=== PATIENT | female | born 1945 | race Caucasian/White ===

== ENCOUNTER → 2018-09-12 07:48 | Outpatient (CLI) | payer MEDICARE, SELFPAY ==
[2018-09-12 08:31] LABS: Add Manual Diff / Slide Review NO; Basophils Absolute Auto 100 /uL (0-100); Basophils Percent Auto 1.1 % (0-2); Eosinophils Absolute Auto 300 /uL (0-450); Eosinophils Percent Auto 3.8 % (2-4); Hematocrit 45.3 % (36-46); Hemoglobin 15.1 g/dL (12.0-16.0); Lymphocytes Absolute Auto 2500 /uL (1100-4500); Lymphocytes Percent Auto 27.7 % (25-40); Mean Corpuscular HGB Conc 33.4 % (30-36); Mean Corpuscular Hemoglobin 29.9 PG (26-34); Mean Corpuscular Volume 89.5 fL (80-100); Monocytes Absolute Auto 700 /uL (0-900); Monocytes Percent Auto 7.7 % (3-14); Neutrophils Absolute Auto 5400 /uL (1500-7000); Neutrophils Percent Auto 59.7 % (50-75); Platelet Count 283 X10^3/uL (150-400); Red Blood Cell Count 5.06 X10^6/uL (4.0-5.2); Red Cell Distribution Width 13.7 % (11.6-14.8)
[2018-09-12 08:46] LABS: Alanine Aminotransferase 52 IU/L (9-52); Albumin 4.6 g/dL (3.5-5.0); Albumin Globulin Ratio 1.4 (1.0-2.8); Alkaline Phosphatase 76 U/L (38-126); Aspartate Aminotransferase 29 IU/L (14-36); BUN Creatinine Ratio 17.8 (6-22); Bilirubin Total 0.7 mg/dL (0.2-1.3); Blood Urea Nitrogen 16 mg/dL (7-17); Calcium 9.2 mg/dL (8.4-10.2); Carbon Dioxide 29 mmol/L (22-32); Chloride 102 mmol/L (98-107); Cholesterol 201 mg/dL (140-199); Estimated Glomerular Filt Rate > 60.0 mL/min (>60); Globulin 3.3 g/dL (1.7-4.1); Glucose 113 mg/dL (80-110); HDL Cholesterol 44 mg/dL (40-60); HEMOLYSIS < 15 (0-50); LDL Cholesterol Calculated 117 mg/dL (<100); Potassium 4.5 mmol/L (3.4-5.1); Sodium 142 mmol/L (137-145); Total Protein 7.9 g/dL (6.3-8.2); Triglycerides 198 mg/dL (35-150)
== END ==
PROVIDERS: PCP Family Medicine; Visit Provider Family Medicine
DX: E03.9 Hypothyroidism, unspecified (principal); E78.5 Hyperlipidemia, unspecified; I10 Essential (primary) hypertension
CPT/HCPCS: 36415; 80053; 80061; 84443; 85025

== ENCOUNTER → 2018-10-14 15:11 | Outpatient (CLI) | payer MEDICARE, SELFPAY ==
--- NOTE | 2018-10-14 15:13 | DI.RAD.S_ITS ---
PROCEDURE: XR LUMBAR SPINE 2-3V INDICATIONS: PAIN TECHNIQUE: 3 views of the lumbar spine were acquired. COMPARISON: [facility], , -SPINE 2-3 VIEWS, 12/28/2014, 11:12. FINDINGS: Bones: No fracture or focal osseous destruction. Grade 1 anterolisthesis of L4 and L5. Diffuse facet arthropathy. Diffuse endplate spurring and sclerosis. Mild narrowing of the L4-L5 disc space although probably unchanged Soft tissues: Overlying bowel gas pattern is normal. No suspicious soft tissue calcifications. IMPRESSION: Mild lower lumbar facet spondylosis and diffuse facet arthropathy although no definite interval change since 12/28/14. Dictated by: Ángel Pepper M.D. on 10/14/2018 at 15:43 Approved by: Ángel Pepper M.D. on 10/14/2018 at 15:45
== END ==
PROVIDERS: Family Provider Family Medicine; PCP Family Medicine; Visit Provider Family Medicine
DX: M54.5 Low back pain (principal); M47.816 Spondylosis without myelopathy or radiculopathy, lumbar region
CPT/HCPCS: 72100

== ENCOUNTER → 2018-10-18 11:01 | Outpatient (CLI) | payer MEDICARE, SELFPAY ==
--- NOTE | 2018-10-18 | DI.MG.S_ITS ---
BILATERAL DIGITAL SCREENING MAMMOGRAM 3D/2D WITH CAD: 10/18/2018 CLINICAL: Routine screening. Family history of breast cancer. Comparison is made to exams dated: 07/19/2017 mammogram, 07/04/2016 mammogram, and 06/22/2015 mammogram - [facility]. There are scattered fibroglandular elements in both breasts. Current study was also evaluated with a Computer Aided Detection (CAD) system. There are benign calcifications in the right breast. There also are benign vascular calcifications in the left breast. No significant masses, calcifications, or other findings are seen in either breast. There has been no significant interval change. IMPRESSION: There is no mammographic evidence of malignancy. A 1 year screening mammogram is recommended. This exam was interpreted at Station ID: [id number]. NOTE: For mammograms, a report in lay terms will be sent to the patient. Approximately 15% of breast malignancies will not be visualized mammographically. In the management of a palpable breast mass, a negative mammogram must not discourage biopsy of a clinically suspicious lesion. Electronically Signed By: Ryan live/josafat:10/18/2018 11:57:43 letter sent: Normal Exam ACR BI-RADS Category 2: Benign Finding(s) [id number]
== END ==
PROVIDERS: Family Provider Family Medicine; PCP Family Medicine; Visit Provider Family Medicine
DX: Z12.31 Encounter for screening mammogram for malignant neoplasm of breast (principal); Z80.3 Family history of malignant neoplasm of breast
CPT/HCPCS: 77063; 77067

== ENCOUNTER → 2018-11-08 15:13 | Outpatient (CLI) | payer MEDICARE, SELFPAY ==
--- NOTE | 2018-11-08 15:16 | DI.MRI.S_ITS ---
PROCEDURE: MR LUMBAR SPINE WO CON INDICATIONS: Lumbosacral spondylosis TECHNIQUE: Noncontrast sagittal T1 spin echo and T2 fast echo, sagittal STIR, axial T1 and T2 fast spin echo through the lumbar spine. In cases with scoliosis, additional coronal T2 fast spin echo may be performed. COMPARISON: [facility], CR, XR LUMBAR SPINE 2-3V, 10/14/2018, 15:15. [facility], MR, L-SPINE WITHOUT CONTRAST, 05/07/2015, 9:51. FINDINGS: Image quality: Excellent. Alignment and Curvature: There is trace anterolisthesis of L4 on L5. Bone Marrow: Marrow is of normal overall signal. No acute vertebral body compression fractures. Spinal Cord: Conus medullaris terminates at the L2 level. Visualized cord demonstrates normal signal and size. Paraspinous Soft Tissues: No paravertebral masses. Discs: Mild desiccation is present at the lumbar spine most notable at L3-4 and L4-5. L1-L2: No disc bulge, spinal stenosis or foraminal narrowing, unchanged. Moderate facet and ligamentum flavum hypertrophy, minimally progressive. L2-L3: No disc bulge, spinal stenosis or foraminal narrowing, unchanged. Moderate facet and ligamentum flavum hypertrophy, minimally progressive. L3-L4: Mild disc bulge with mild spinal stenosis, minimally progressive compared to prior exam. Mild bilateral foraminal narrowing with facet and ligamentum flavum hypertrophy without interval change. L4-L5: Mild disc bulge with moderate to severe spinal stenosis, minimally progressive compared to prior exam. There is mild to moderate right and mild left foraminal narrowing, minimally progressive compared to prior exam. Facet and ligamentum flavum hypertrophy are present. L5-S1: Mild disc bulge including a right lateral/foraminal component. No spinal stenosis or foraminal narrowing. Mild interval progression as noted. IMPRESSION: 1. Multilevel degenerative changes at several levels demonstrate mild degrees of interval progression. 2. Spinal stenosis most prominent at L4-5 secondary to disc bulge with marked affect the facet/ligamentum flavum arthropathy. 3. Overall mild/moderate foraminal narrowing most prominent at L4-5 secondary to facet arthropathy. Dictated by: Natalee Dhaliwal M.D. on 11/08/2018 at 14:53 Approved by: Natalee Dhaliwal M.D. on 11/08/2018 at 14:59
== END ==
PROVIDERS: Family Provider Family Medicine; PCP Family Medicine; Visit Provider Physical Medicine & Rehabilitation
DX: M47.26 Other spondylosis with radiculopathy, lumbar region (principal); M51.16 Intervertebral disc disorders with radiculopathy, lumbar region; M48.061 Spinal stenosis, lumbar region without neurogenic claudication
CPT/HCPCS: 72148

== ENCOUNTER 2018-12-18 09:25 | Outpatient (CLI) | payer MEDICARE, SELFPAY ==
[2018-12-18] VITALS (9 sets, daily range): BP systolic 123–163; BP diastolic 54–78; PULSE 62–85; RESP 16–18; TEMP 35.9; O2SAT 92–100
--- NOTE | 2018-12-18 09:28 | DI.RAD.S_ITS ---
PROCEDURE: PAIN L/SI FACET INJ/BLK 1STL INDICATIONS: SPONDYLOSIS FINDINGS: Fluoroscopic spot filming was performed to verify placement of spinal needles at the L4-5,L5-S1 level(s), as labeled on the films. Appropriate location(s) of the needle tip(s) was confirmed by injection of iodinated contrast. Dictated by: Ángel Pepper M.D. on 12/18/2018 at 11:50 Approved by: Ángel Pepper M.D. on 12/18/2018 at 11:51
[2018-12-18] MEDS: MIDAZOLAM 5 MG/5 ML VIAL IV (10:40)
[2018-12-18] MEDS: BETAMETHASONE 30 MG/5 ML MDV 12 MG INJ (10:47)
[2018-12-18] MEDS: BUPIVACAINE 0.5% (PF) VIAL 2 ML INJ (10:47)
[2018-12-18] MEDS: LIDOCAINE 1% 20 ML INJ 10 ML INJ (10:48)
[2018-12-18] MEDS: IOPAMIDOL 15 ML VIAL 3 ML INJ (10:48)
--- NOTE | 2018-12-18 10:55 | PM.PROC.1 ---
Procedures Date/Time Date of procedure: 12/18/18 Time of procedure: 10:56 General Procedure description: PREOP DIAGNOSIS 1. FACET ARTHROPATHY, 2. AXIAL LBP, 3. MULTILEVEL DDD, POST OP DIAGNOSIS 1. FACET ARTHROPATHY, 2. AXIAL LBP, 3. MULTILEVEL DDD, PROCEDURES 1. FLUORSCOPICALLY GUIDED CONTRAST CONTROLLED FACET JOINT INJECTIONS LEFT L4/5, L5/S1 SURGEON: Froylan Castillo, INDICATIONS Christie is referred by Dr. Mahoney for treatment of Axial LBP FINDINGS Multilevel Facet Arthropathy with Clinically significant axial LBP DESCRIPTION OF PROCEDURE Fluoroscopically guided, contrast-controlled left L4/5, L5/S1 facet joint injections. Following denial of allergy and review of potential side effects and complications, including, but not necessarily limited to, infection, allergic reaction, local tissue breakdown, stroke, temporary or permanent nerve injury, paralysis, and possible , the patient indicated that the patient understood and agreed to proceed. An informed consent document was signed by the patient, witnessed by a nurse, and placed in the patient's chart. Additionally, other treatment options including medications, modalities, and physical therapy were reviewed with the patient. After review of previous anaesthesic history and IV conscious sedation the patient was deemed safe to proceed with todays procedure with IV conscious sedation as ASA class II designation. Safety time-out was performed to confirm patient ID, procedure to be performed and site of procedure. IV sedation was accomplished with a combination of 3mg of Versed was administered by the RN after DO order, titrated to patient comfort during the course of the procedure while the patient remained responsive to all verbal commands. In the prone position, following sterile prep and drape of the lumbar region, the posterior aspect of the left L4/5, L5/S1 facet joints were identified fluoroscopically. The skin was anesthetized via a 25-gauge 1.5-inch needle with 1% lidocaine solution into the corresponding facet joints. At this point, a 22-gauge 3.5-inch spinal needle was atraumatically introduced and advanced under fluoroscopic guidance into the corresponding facet joints. Following negative aspiration, injections of approximately 0.2-cc of Isovue 200 confirmed interarticular placement without vascular uptake. Radiological data, including multiple fluoroscopic views of the lumbosacral spine, reveal a spinal needle at the left L4/5, L5/S1 facet joints. Subsequent views show flow of contrast material both superiorly and inferiorly within the joint space without vascular or intrathecal uptake. At this point, a total of 0.5 cc including a mixture of 0.25cc Marcaine and 0.25cc betamethasone was injected without complication into each of the corresponding facet joints. The procedure tolerated the procedure well without signs or symptoms of complications prior to transfer to the recovery area continued monitoring without incident. The patient was then transferred to the recovery area where they were observed for an appropriate period of time after the injection. The patient reported a VAS score of 7 prior to the procedure and a post-procedure VAS of 0. Total Fluoroscopy Time: 12.7 seconds Total Conscious Sedation Time: 24min POST OP INSTRUCTIONS The patient was provided a Pain Log to continue to record their response to the target-specific procedure prior to follow-up visit with their referring physician. Additionally, specific post-injection care instructions and a contact number to our office were provided if concerns arise regarding possible complications associated with the procedure are suspected. Froylan Castillo, Complications: none
--- NOTE | 2018-12-18 10:58 | P.PCN_ITS ---
Procedures Date/Time Date of procedure: 12/18/18 Time of procedure: 10:56 General Procedure description: PREOP DIAGNOSIS 1. FACET ARTHROPATHY, 2. AXIAL LBP, 3. MULTILEVEL DDD, POST OP DIAGNOSIS 1. FACET ARTHROPATHY, 2. AXIAL LBP, 3. MULTILEVEL DDD, PROCEDURES 1. FLUORSCOPICALLY GUIDED CONTRAST CONTROLLED FACET JOINT INJECTIONS LEFT L4/5, L5/S1 SURGEON: Froylan Castillo, DO MIRAMONTES Christie is referred by Dr. Mahoney for treatment of Axial LBP FINDINGS Multilevel Facet Arthropathy with Clinically significant axial LBP DESCRIPTION OF PROCEDURE Fluoroscopically guided, contrast-controlled left L4/5, L5/S1 facet joint inj ections. Following denial of allergy and review of potential side effects and complications, including, but not necessarily limited to, infection, allergic reaction, local tissue breakdown, stroke, temporary or permanent nerve injury, paralysis, and possible , the patient indicated that the patient understood and agreed to proceed. An informed consent document was signed by the patient, witnessed by a nurse, and placed in the patient's chart. Additionally, other treatment options including medications, modalities, and physical therapy were reviewed with the patient. After review of previous anaesthesic history and IV conscious sedation the patient was deemed safe to proceed with todays procedure with IV conscious sedation as ASA class II designation. Safety time-out was performed to confirm patient ID, procedure to be performed and site of procedure. IV sedation was accomplished with a combination of 3mg of Versed was administered by the RN after DO order, titrated to patient comfort during the course of the procedure while the patient remained responsive to all verbal commands. In the prone position, following sterile prep and drape of the lumbar region, the posterior aspect of the left L4/5, L5/S1 facet joints were identified fluoroscopically. The skin was anesthetized via a 25-gauge 1.5-inch needle with 1% lidocaine solution into the corresponding facet joints. At this point, a 22- gauge 3.5-inch spinal needle was atraumatically introduced and advanced under fluoroscopic guidance into the corresponding facet joints. Following negative aspiration, injections of approximately 0.2-cc of Isovue 200 confirmed interarticular placement without vascular uptake. Radiological data, including multiple fluoroscopic views of the lumbosacral spine, reveal a spinal needle at the left L4/5, L5/S1 facet joints. Subsequent views show flow of contrast material both superiorly and inferiorly within the joint space without vascular or intrathecal uptake. At this point, a total of 0.5 cc including a mixture of 0.25cc Marcaine and 0.25cc betamethasone was injected without complication into each of the corresponding facet joints. The procedure tolerated the procedure well without signs or symptoms of complications prior to transfer to the recovery area continued monitoring without incident. The patient was then transferred to the recovery area where they were observed for an appropriate period of time after the injection. The patient reported a VAS score of 7 prior to the procedure and a post-procedure VAS of 0. Total Fluoroscopy Time: 12.7 seconds Total Conscious Sedation Time: 24min POST OP INSTRUCTIONS The patient was provided a Pain Log to continue to record their response to the target-specific procedure prior to follow-up visit with their referring physician. Additionally, specific post-injection care instructions and a contact number to our office were provided if concerns arise regarding possible complications associated with the procedure are suspected. Froylan Castillo, Complications: none
--- NOTE | 2018-12-18 11:10 | PC.NURSE ---
pt tolerated procedure well. Able to get off table with standby assist. Transferred pt to pre procedure room via wheelchair for continued monitoring with Carissa CHAU.
--- NOTE | 2018-12-18 11:25 | PC.NURSE ---
increase in alertness, talkative and cooperative, tolerating drinking coffee and water. spouse at bs.
--- NOTE | 2018-12-18 11:47 | PC.NURSE ---
1056 rtr from procedure via w/c, pain free, transfer self to chair, tolerating drinking coffee with sugar. states, feeling sleepy.
== END 2018-12-18 11:29 | disposition home or self-care (01) ==
PROVIDERS: PCP Family Medicine; Visit Provider Physical Medicine & Rehabilitation
DX: M47.816 Spondylosis without myelopathy or radiculopathy, lumbar region (principal); M47.817 Spondylosis without myelopathy or radiculopathy, lumbosacral region; M54.5 Low back pain; M51.36 Other intervertebral disc degeneration, lumbar region; M51.37 Other intervertebral disc degeneration, lumbosacral region
CPT/HCPCS: 64493; 64494; 99152; J0702; J2250; J3010

== ENCOUNTER 2019-09-15 09:38 | Emergency (ER) | payer MEDICARE, SELFPAY ==
[2019-09-15] VITALS (7 sets, daily range): BP systolic 135–181; BP diastolic 65–79; PULSE 67–77; RESP 12–19; TEMP 37; O2SAT 95–100
--- NOTE | 2019-09-15 09:42 | DI.RAD.S_ITS ---
PROCEDURE: XR CHEST 1V INDICATIONS: chest pain TECHNIQUE: One view of the chest was acquired. COMPARISON: [facility], , CHEST 2 VIEW, 04/04/2017, 9:50. FINDINGS: Surgical changes and devices: None. Lungs and pleura: Lungs are clear. No pleural effusions or pneumothorax. Mediastinum: Mediastinal contours appear normal. Heart size is normal. Bones and chest wall: No suspicious bony lesions. Overlying soft tissues appear unremarkable. IMPRESSION: No acute disease Dictated by: Ángel Pepper M.D. on 09/15/2019 at 10:51 Approved by: Ángel Pepper M.D. on 09/15/2019 at 10:53
--- NOTE | 2019-09-15 10:48 | ED_ITS ---
HPI - Chest Pain General Chief Complaint: Chest Pain Stated Complaint: chest pain Time Seen by Provider: 09/15/19 10:41 Source: patient Mode of arrival: Ambulatory Limitations: no limitations History of Present Illness HPI narrative: The patient is a 73-year-old female who presented to the emergency department for evaluation of chest pain she had on Sunday, 3 days prior to admission. She had no pain and discomfort on Sunday or Sunday. The patient states that periodically she has intermittent brief periods of chest pain that are dull and achy. The discomfort occurs in the center of her chest and is a tight squeezing dull achy discomfort as she makes the Boggs's sign. She denies ever having a myocardial infarction or pulmonary embolism. She denies any fall or injury. She has had no fever chills or sweats as well as any significant cough. She become short of breath when she climbs in walks up a fl ight of stairs. She denies any headache palpitations or dizziness. She denies any discomfort radiating into her neck jaw or shoulder or arm. The pain was the worse on Sunday. She stated that it lasted approximately 20 minutes. There was no significant radiation but was very uncomfortable. She does not smoke cigarettes or drink alcohol. She denies a history of myocardial infarction congestive heart failure diabetes mellitus pancreatitis or cholecystectomy. She has had no cough shortness of breath sore throat sinus or nasal congestion. She has had no abdominal pain nausea vomiting diarrhea change in bowel habits or urinary symptoms. Related Data Home Medications Medication Instructions Recorded Confirmed ascorbic acid (vitamin C) 500 mg 500 mg PO DAILY cap 04/03/19 09/15/19 capsule cell salts 5 each PO DAILY 04/03/19 09/15/19 cholecalciferol (vitamin D3) 25 1,000 unit PO DAILY 04/03/19 09/15/19 mcg (1,000 unit) capsule mecobalamin (vitamin B12) 1 tab PO DAILY 04/03/19 09/15/19 multivitamin 1 tab PO DAILY 04/03/19 09/15/19 atenolol 25 mg PO DAILY 09/15/19 09/15/19 estradiol [Climara] 0.1 mg TOPICAL QWEEK 09/15/19 09/15/19 omeprazole 20 mg PO DAILY 09/15/19 09/15/19 Previous Rx's Medication Instructions Recorded colesevelam 625 mg tablet 1,250 mg PO ONCE #90 tab 09/19/18 diclofenac sodium 1 % topical gel 2 g TOP QID #100 gram MDD 8 gm 04/03/19 meloxicam 7.5 mg tablet 7.5 mg PO DAILY #30 tab 04/07/19 levothyroxine 88 mcg tablet 88 mcg PO QAM #90 tab 09/08/19 ibuprofen 600 mg PO QID PRN #20 tab 09/15/19 Allergies Allergy/AdvReac Type Severity Reaction Status Date / Time Penicillins Allergy Mild RASH Verified 04/03/19 15:09 Review of Systems Review of Systems Narrative: Her review of systems were negative except for those mentioned in the history of present illness. Patient History Surgical History History of bladder suspension procedure Status post appendectomy Status post delivery Status post hysterectomy Family History Brother Age: 75 Diabetes mellitus Sister Age: 69 Blind Social History marital status: Smoking Status: Never smoker alcohol intake: current (ON OCCASION ) substance use type: does not use Smoking Status: Never smoker Substance Use Type: does not use Exam Narrative Exam Narrative: PHYSICAL EXAM: CONSTITUTIONAL: Awake, Alert, Oriented, Coherent, Cooperative in NAD. Does not appear toxic or ill. HEAD: AT/NC EENT: PERRL, FROM of eyes, no discharge, no nystagmus No epistaxis or nasal drainage Oral mucosa is moist and pink, posterior pharynx is without erythema or exudate. NECK: Supple, no obvious JVD, Trachea is midline without stridor, SPINE: No gross deformity, no palpable tenderness of the cervical, thoracic, lumbar or sacral spine. No CVA tenderness. THORAX: No deformity, retractions, chest wall tenderness, subcutaneous air or crepitice. LUNGS: Clear with symmetrical breath sounds without respiratory distress HEART: Normal heart tones, regular rhythm and rate without murmur. ABDOMEN: Soft, non-tender, normal bowel sounds without guarding, rebound, rigidity or palpable mass EXTREMITIES: No edema, cyanosis, deformity or tenderness. SKIN: No rash, bruising, petechiae or purpura. NEURO: Awake, alert, oriented, conversive, cranial nerves II-XII are symmetrical and normal, moves all 4 extremities and is ambulatory Initial Vital Signs Initial Vital Signs: Vital Signs Temperature 98.6 F 09/15/19 09:41 Pulse Rate 68 09/15/19 09:41 Respiratory Rate 16 09/15/19 09:41 Blood Pressure 169/73 H 09/15/19 09:41 Pulse Oximetry 98 09/15/19 09:41 Course Course Additional Information: 1051 the patient's troponin and x-ray results remain pending at this time. 1340 the patient's 2nd troponin remains pending. Her 2nd EKG reveals a normal sinus rhythm with a ventricular rate of 64. Intervals are normal. [place] is normal. She has low voltage in III. She has a Q-wave in lead V1. T-waves are flat in III and AVF and inverted in V1. There are no other acute diagnostic ST or T-wave changes on her EKG her EKG is otherwise normal. 1351 the patient's 2nd troponin is less than 0.012. The patient will be disc harged home to be seen in follow-up by her primary care physician. Orders Ordered: ED Orders 09/15/19 13:10 EKG-12 Lead Stat 09/15/19 13:12 Trop I [Troponin I] Stat Vital Signs Vital signs: Vital Signs - 8 hr 09/15/19 13:00 09/15/19 13:59 Pulse Rate 68 77 Respiratory Rate 13 19 Blood Pressure 135/65 Blood Pressure [Left Arm] 135/65 Pulse Oximetry 96 97 MDM - Chest Pain Lab Data Result diagrams: 09/15/19 11:10 09/15/19 11:10 Labs: Lab Results 09/15/19 09/15/19 09/15/19 Range/Units 11:10 11:10 11:10 WBC 7.0 (4.5-11.0) X10^3/uL RBC 4.78 (4.0-5.2) X10^6/uL Hgb 14.3 (12.0-16.0) g/dL Hct 42.6 (36-46) % MCV 89.1 (80-100) fL MCH 30.0 (26-34) PG MCHC 33.6 (30-36) % RDW 14.2 (11.6-14.8) % Plt Count 211 (150-400) X10^3/uL Neut % (Auto) 67.8 (50-75) % Lymph % (Auto) 20.5 L (25-40) % [place] % (Auto) 7.4 (3-14) % Eos % (Auto) 3.4 (2-4) % Baso % (Auto) 0.9 (0-2) % Neut # (Auto) 4700 (1657-1958) /uL Lymph # (Auto) 1400 (3461-0923) /uL [place] # (Auto) 500 (0-900) /uL Eos # (Auto) 200 (0-450) /uL Baso # (Auto) 100 (0-100) /uL PT 11.1 (10.1-12.7) SECONDS INR 1.0 (0.9-1.3) APTT 32 (26.4-36.2) SECONDS Sodium 139 (137-145) mmol/L Potassium 4.1 (3.4-5.1) mmol/L Chloride 104 (98-107) mmol/L Carbon Dioxide 28 (22-32) mmol/L BUN 16 (7-17) mg/dL Creatinine 0.80 (0.52-1.04) mg/dL Estimated GFR > 60.0 (>60) mL/min BUN/Creatinine Ratio 20.0 (6-22) Glucose 139 H (80-110) mg/dL Calcium 9.8 (8.4-10.2) mg/dL Total Bilirubin 0.6 (0.2-1.3) mg/dL AST 31 (14-36) IU/L ALT 37 H (<35) IU/L Alkaline Phosphatase 79 (38-126) U/L Total Creatine Kinase 38 (30-135) U/L CK-MB (CK-2) TNP CK-MB (CK-2) Rel Index TNP Troponin I < 0.012 (0.01-0.034) ng/mL Total Protein 7.6 (6.3-8.2) g/dL Albumin 4.4 (3.5-5.0) g/dL Globulin 3.2 (1.7-4.1) g/dL Albumin/Globulin Ratio 1.4 (1.0-2.8) Lipase 73 (23-300) U/L 09/15/19 Range/Units 13:12 WBC (4.5-11.0) X10^3/uL RBC (4.0-5.2) X10^6/uL Hgb (12.0-16.0) g/dL Hct (36-46) % MCV (80-100) fL MCH (26-34) PG MCHC (30-36) % RDW (11.6-14.8) % Plt Count (150-400) X10^3/uL Neut % (Auto) (50-75) % Lymph % (Auto) (25-40) % [place] % (Auto) (3-14) % Eos % (Auto) (2-4) % Baso % (Auto) (0-2) % Neut # (Auto) (7422-1644) /uL Lymph # (Auto) (7573-7049) /uL [place] # (Auto) (0-900) /uL Eos # (Auto) (0-450) /uL Baso # (Auto) (0-100) /uL PT (10.1-12.7) SECONDS INR (0.9-1.3) APTT (26.4-36.2) SECONDS Sodium (137-145) mmol/L Potassium (3.4-5.1) mmol/L Chloride (98-107) mmol/L Carbon Dioxide (22-32) mmol/L BUN (7-17) mg/dL Creatinine (0.52-1.04) mg/dL Estimated GFR (>60) mL/min BUN/Creatinine Ratio (6-22) Glucose (80-110) mg/dL Calcium (8.4-10.2) mg/dL Total Bilirubin (0.2-1.3) mg/dL AST (14-36) IU/L ALT (<35) IU/L Alkaline Phosphatase (38-126) U/L Total Creatine Kinase (30-135) U/L CK-MB (CK-2) CK-MB (CK-2) Rel Index Troponin I < 0.012 (0.01-0.034) ng/mL Total Protein (6.3-8.2) g/dL Albumin (3.5-5.0) g/dL Globulin (1.7-4.1) g/dL Albumin/Globulin Ratio (1.0-2.8) Lipase (23-300) U/L Urine Dip Bedside Urine Glucose Negative Bedside Urine Bilirubin - Negative Bedside Urine Ketone - Negative Bedside Urine Occult Blood - Negative Bedside Urine Protein - Negative Bedside Urine Urobilinogen - Negative Bedside Urine Nitrite - Negative Bedside Urine Leukocytes - Negative Esterase ECG Data Attestation: I personally reviewed and interpreted this ECG as follows: Interpretation: The patient's EKG revealed a normal sinus rhythm with a ventricular rate of 84. Intervals appear to be normal QTC is not prolonged at 424 milliseconds. The patient has right axis deviation. The patient appears to have low voltage criteria. T-waves are inverted in V1 aVL I. The patient has a Q-wave in lead I V1. There are nonspecific ST segment changes with slight ST depressions in leads V4 V5 V6 . There are no diagnostic ST segment changes. Discharge Plan Departure Patient Disposition: Home Clinical Impression: Atypical chest pain Discharge Date/Time: 09/15/19 14:01 Instructions: DI for Angina, DI for Atypical Chest Pain, DI for Chest Pain Activity Restrictions/Additional Instructions: Your repeat EKGs are normal and did not show any evidence of ischemia or injury to your heart. Here troponin is also normal. You need to follow-up with your primary care physician to be referred to a rivet flunky for a possible stress test. I would take at least 1 baby aspirin per day. For the pain and discomfort take ibuprofen 600 mg as needed every 6 hours. If you have recurring chest pain that radiates into your neck jaw back shoulders are arm and last longer than 15 minutes at the time that you are having chest pain you need to proceed to the nearest emergency department to be evaluated. Prescriptions: New ibuprofen 600 mg tablet 600 mg PO QID PRN (Reason: pain) Qty: 20 RF: 0 No Action meloxicam 7.5 mg tablet 7.5 mg PO DAILY Qty: 30 RF: 3 levothyroxine 88 mcg tablet 88 mcg PO QAM Qty: 90 RF: 0 colesevelam [WelChol] 625 mg tablet 1,250 mg PO ONCE Qty: 90 RF: 3 estradiol [Climara] 0.1 mg/24 hr patch weekly 0.1 mg topical QWEEK RF: 0 atenolol 25 mg tablet 25 mg PO DAILY RF: 0 omeprazole 20 mg capsule,delayed release(DR/EC) 20 mg PO DAILY RF: 0 ascorbic acid (vitamin C) 500 mg capsule 500 mg PO DAILY RF: 0 cholecalciferol (vitamin D3) 1,000 unit capsule 1,000 unit PO DAILY RF: 0 mecobalamin (vitamin B12) 1 tab PO DAILY RF: 0 multivitamin tablet 1 tab PO DAILY RF: 0 cell salts 5 each PO DAILY RF: 0 diclofenac sodium 1 % gel 2 g TOP QID MDD 8 gm Qty: 100 RF: 2 Referrals: Clark Mahoney MD [Primary Care Provider] -
--- NOTE | 2019-09-15 11:07 | PC.NURSE ---
patient refused iv access, having lab draw done currently.
[2019-09-15 11:17] LABS: Add Manual Diff / Slide Review NO; Basophils Absolute Auto 100 /uL (0-100); Basophils Percent Auto 0.9 % (0-2); Eosinophils Absolute Auto 200 /uL (0-450); Eosinophils Percent Auto 3.4 % (2-4); Hematocrit 42.6 % (36-46); Hemoglobin 14.3 g/dL (12.0-16.0); Lymphocytes Absolute Auto 1400 /uL (1100-4500); Lymphocytes Percent Auto 20.5 % (25-40); Mean Corpuscular HGB Conc 33.6 % (30-36); Mean Corpuscular Volume 89.1 fL (80-100); Monocytes Absolute Auto 500 /uL (0-900); Monocytes Percent Auto 7.4 % (3-14); Neutrophils Absolute Auto 4700 /uL (1500-7000); Neutrophils Percent Auto 67.8 % (50-75); Platelet Count 211 X10^3/uL (150-400); Red Blood Cell Count 4.78 X10^6/uL (4.0-5.2); Red Cell Distribution Width 14.2 % (11.6-14.8)
[2019-09-15 11:23] LABS: Prothrombin Time 11.1 SECONDS (10.1-12.7)
[2019-09-15 11:26] LABS: PTT Partial Thromboplastin Tim 32 SECONDS (26.4-36.2)
[2019-09-15 11:27] LABS: Alanine Aminotransferase 37 IU/L (<35); Albumin 4.4 g/dL (3.5-5.0); Albumin Globulin Ratio 1.4 (1.0-2.8); Alkaline Phosphatase 79 U/L (38-126); Aspartate Aminotransferase 31 IU/L (14-36); Bilirubin Total 0.6 mg/dL (0.2-1.3); Blood Urea Nitrogen 16 mg/dL (7-17); Calcium 9.8 mg/dL (8.4-10.2); Carbon Dioxide 28 mmol/L (22-32); Chloride 104 mmol/L (98-107); Creatine Kinase 38 U/L (30-135); Estimated Glomerular Filt Rate > 60.0 mL/min (>60); Globulin 3.2 g/dL (1.7-4.1); Glucose 139 mg/dL (80-110); HEMOLYSIS < 15 (0-50); Lipase 73 U/L (23-300); Potassium 4.1 mmol/L (3.4-5.1); Sodium 139 mmol/L (137-145); Total Protein 7.6 g/dL (6.3-8.2)
[2019-09-15 11:39] LABS: Troponin I < 0.012 ng/mL (0.01-0.034)
[2019-09-15 13:47] LABS: Troponin I < 0.012 ng/mL (0.01-0.034)
== END 2019-09-15 14:01 | disposition home or self-care (01) ==
PROVIDERS: Emergency Provider Emergency Medicine; PCP Family Medicine
DX: R07.89 Other chest pain (principal)
CPT/HCPCS: 36415; 71045; 80053; 81003; 82550; 83690; 84484; 85025; 85610; 85730; 93005; 99284; 99285

== ENCOUNTER → 2019-09-29 13:44 | Outpatient (CLI) | payer MEDICARE, SELFPAY ==
--- NOTE | 2019-09-29 14:56 | PM.TREADMILL ---
Cardiac Stress Test Report Referral & Results Date Patient Seen: 09/29/19 Requesting provider: Clark Mahoney Indication: Chest discomfort Rest ECG: Tachycardia Procedure Note: Today following both written and verbal informed consent the patient was exercised according to a standard Williams protocol patient went for a total of 3 minutes 26 seconds of stage I Williams achieving a maximum heart rate of 154 maximum systolic blood pressure of 192. This is approximately 4.6 METS. Exercise was terminated at this point because of tachycardia and targets were met. Patient was tachycardic at resting quickly achieved quite the tachycardia with rapid increase in blood pressure as well. Function aerobic impairment rates about 0 on the sedentary scale No ST-T segment changes identified Patient was also given Cardiolite through a previously started Hep-Lock IV by the diagnostic imaging staff approximately 1 minute prior to the cessation of exercise. Impression: Average exercise capacity No ECG evidence of ischemia Please see perfusion imaging report as well Please note: Actual ECG tracings can be found in the PACS system.
--- NOTE | 2019-10-02 18:20 | DI.NM.S_ITS ---
DATE OF SERVICE: 09/29/2019 PROCEDURE PERFORMED: Exercise treadmill stress and rest myocardial perfusion imaging with gating to assess ejection fraction and regional wall motion. ORDERING PROVIDER: Dr. Clark Mahoney. INDICATIONS: The patient is a 73-year-old female with recent emergency department evaluation for atypical chest discomfort. EXERCISE TREADMILL TESTING: The patient was able to exercise for 3 minutes 26 seconds on a standard Williams protocol, suggesting moderate-severely reduced exercise capacity with an CARLI of +36%. Her resting heart rate was elevated at 127 bpm, but had a normal heart rate response to exercise, achieving a maximum heart rate of 152 bpm (105% of her predicted maximum). She had a normal blood pressure response to exercise. She apparently had no chest discomfort. Her resting ECG shows sinus tachycardia at 119 bpm without any significant ST-segment abnormalities and there are no significant ST-segment shifts with exercise to suggest ischemia. There were no other arrhythmias. At 2 minutes 17 seconds of exercise, at a heart rate of 154 bpm, 25.7 mCi of technetium-99m Myoview was injected and the patient was imaged 20 minutes later using a gated SPECT acquisition protocol. She returned three days later and was reinjected with an additional 25.0 mCi of technetium-99m Myoview and was imaged 30 minutes later, again using a gated SPECT acquisition protocol. FINDINGS: RAW DATA: The post-stress images are compromised by considerable motion artifact and mild breast attenuation. The prone images appear to be of better image quality. The lung/heart ratio was normal at 0.38 with a normal TID ratio of 0.73. QUANTITATED GATED SPECT: Post-stress ejection fraction is estimated at 87% without any obvious focal wall motion abnormality. Resting ejection fraction is estimated at 95% and both values likely an overestimate because of relatively small left ventricular volumes with a resting end-diastolic volume of 41 mL. MYOCARDIAL PERFUSION IMAGING: Post-stress supine images are compromised by significant motion artifact. On face value, there is mildly reduced tracer activity in the mid anterior wall and mid inferior wall, but both of these defects resolve on the prone images, revealing a homogeneous, normal perfusion pattern. The resting images are of somewhat better quality and show a slight residual anterior defect. While there is some suggestion of improvement, this is nonspecific because of the poor image quality on the supine stress images. CONCLUSION: 1. Probable normal myocardial perfusion study but with significantly reduced sensitivity and specificity because of marked motion artifact on the post- stress supine images. 2. On the basis of the prone images which were of good quality, there are no perfusion defects to suggest myocardial ischemia or previous myocardial infarction. 3. High normal left ventricular systolic function with relatively small left ventricular volumes. 4. Moderate-severely reduced exercise capacity, perhaps in part due to an accelerated heart rate with a resting sinus tachycardia and an accelerated heart rate response to exercise, perhaps due to beta shailesh withdrawal. There was no angina or ECG evidence of ischemia. Radha Buchanan - JAMES/berry/laura doc#: [id number]/job#: [id number] dd: 10/02/2019 12:52:00 dt: 10/02/2019 17:58:00 DICTATING MD/COPIES TO: Froylan Quiles MD; Clark Mahoney MD COPIES MNE: RADHA;
== END ==
PROVIDERS: PCP Family Medicine; Referring Provider Family Medicine; Visit Provider Family Medicine
DX: R07.89 Other chest pain (principal); R00.0 Tachycardia, unspecified
CPT/HCPCS: 78452; 93016; 93017; 93018; A9502

== ENCOUNTER → 2019-10-01 07:09 | Outpatient (CLI) | payer MEDICARE, SELFPAY | PROVIDERS: PCP Family Medicine; Referring Provider Family Medicine; Visit Provider Family Medicine | DX: R19.7 Diarrhea, unspecified (principal) | CPT/HCPCS: 87045; 87177; 87899 ==

== ENCOUNTER → 2020-02-09 09:40 | Outpatient (CLI) | payer MEDICARE, SELFPAY ==
--- NOTE | 2020-02-09 | DI.MG.S_ITS ---
BILATERAL DIGITAL SCREENING MAMMOGRAM 3D/2D WITH CAD: 02/09/2020 CLINICAL: Routine screening. Family history of breast cancer. Comparison is made to exams dated: 10/18/2018 mammogram, 07/19/2017 mammogram, 07/04/2016 mammogram, 06/22/2015 mammogram, 05/22/2014 mammogram, and 03/14/2013 mammogram - [facility]. There are scattered fibroglandular elements in both breasts. Current study was also evaluated with a Computer Aided Detection (CAD) system. There are benign calcifications in both breasts. No significant masses, calcifications, or other findings are seen in either breast. There has been no significant interval change. IMPRESSION: There is no mammographic evidence of malignancy. A 1 year screening mammogram is recommended. This exam was interpreted at Station ID: [id number]. NOTE: For mammograms, a report in lay terms will be sent to the patient. Approximately 15% of breast malignancies will not be visualized mammographically. In the management of a palpable breast mass, a negative mammogram must not discourage biopsy of a clinically suspicious lesion. Electronically Signed By: Edgar wagner/josafat:02/09/2020 09:57:13 letter sent: Normal Exam ACR BI-RADS Category 2: Benign Finding(s) 3342F
== END ==
PROVIDERS: PCP Family Medicine; Referring Provider Family Medicine; Visit Provider Family Medicine
DX: Z12.31 Encounter for screening mammogram for malignant neoplasm of breast (principal); Z80.3 Family history of malignant neoplasm of breast
CPT/HCPCS: 77063; 77067

== ENCOUNTER → 2020-10-11 08:55 | Outpatient (CLI) | payer MEDICARE, SELFPAY ==
[2020-10-11 11:24] LABS: TSH w/ Reflex to FT4 2.05 uIU/mL (0.47-4.68)
== END ==
PROVIDERS: PCP Family Medicine; Referring Provider Family Medicine; Visit Provider Family Medicine
DX: E03.9 Hypothyroidism, unspecified (principal)
CPT/HCPCS: 36415; 84443

== ENCOUNTER → 2021-04-30 11:06 | Outpatient (CLI) | payer MEDICARE, SELFPAY ==
--- NOTE | 2021-04-30 11:07 | DI.MG.S_ITS ---
BILATERAL DIGITAL SCREENING MAMMOGRAM 3D/2D WITH CAD: 04/30/2021 CLINICAL: Routine screening. Family history of breast cancer. Comparison is made to exams dated: 02/09/2020 mammogram, 10/18/2018 mammogram, and 07/19/2017 mammogram - [facility]. There are scattered fibroglandular elements in both breasts. Current study was also evaluated with a Computer Aided Detection (CAD) system. There are benign calcifications in both breasts. No significant masses, calcifications, or other findings are seen in either breast. There has been no significant interval change. IMPRESSION: BENIGN There is no mammographic evidence of malignancy. A 1 year screening mammogram is recommended. This exam was interpreted at Station ID: [id number]. NOTE: For mammograms, a report in lay terms will be sent to the patient. Approximately 15% of breast malignancies will not be visualized mammographically. In the management of a palpable breast mass, a negative mammogram must not discourage biopsy of a clinically suspicious lesion. Electronically Signed By: Solis Gar acr/josafat:05/02/2021 07:53:19 letter sent: Normal Exam ACR BI-RADS Category 2: Benign Finding(s) 3342F
== END ==
PROVIDERS: PCP Family Medicine; Referring Provider Family Medicine; Visit Provider Family Medicine
DX: Z12.31 Encounter for screening mammogram for malignant neoplasm of breast (principal); Z80.3 Family history of malignant neoplasm of breast
CPT/HCPCS: 77063; 77067

== ENCOUNTER → 2021-09-12 12:51 | Outpatient (CLI) | payer MEDICARE, SELFPAY ==
[2021-09-12 16:01] LABS: COVID19 -Nasal RAPID Negative (Negative)
== END ==
PROVIDERS: PCP Family Medicine; Visit Provider Physical Medicine & Rehabilitation
DX: M47.816 Spondylosis without myelopathy or radiculopathy, lumbar region (principal); M43.16 Spondylolisthesis, lumbar region; Z20.822 Contact with and (suspected) exposure to COVID-19
CPT/HCPCS: 87635; 99214

== ENCOUNTER 2021-09-13 15:20 | Outpatient (CLI) | payer MEDICARE, SELFPAY ==
[2021-09-13] VITALS (8 sets, daily range): BP systolic 138–212; BP diastolic 63–91; PULSE 72–83; RESP 14–20; TEMP 36.6; O2SAT 95–100
--- NOTE | 2021-09-13 15:21 | DI.RAD.S_ITS ---
PROCEDURE: PAIN L/SI FACET INJ/BLK 1STL INDICATIONS: SPONDYLOSIS COMPARISON: [facility], , PAIN L/SI FACET INJ/BLK 1STL, 12/18/2018, 10:49. FINDINGS: Fluoroscopic spot filming was performed to verify placement of spinal needles at the left L4, L5, and S1 as labeled on the films. Appropriate locations of the needle tips was confirmed by injection of iodinated contrast. IMPRESSION: Fluoroscopic images demonstrate needle positioning as described above. Dictated by: Cyrus Andrew M.D. on 09/13/2021 at 16:57 Approved by: Cyrus Andrew M.D. on 09/13/2021 at 16:58
[2021-09-13] MEDS: BUPIVACAINE 0.5% (PF) VIAL 2 ML INJ (16:10)
[2021-09-13] MEDS: MIDAZOLAM 5 MG/5 ML VIAL IV (16:10)
[2021-09-13] MEDS: IOPAMIDOL 15 ML VIAL 3 ML INJ (16:15)
--- NOTE | 2021-09-13 16:28 | PM.PROC.IR.1 ---
Date/Time/Diagnoses Date of procedure: 09/13/21 Time of procedure: 16:28 Pre-procedure diagnosis: 1. FACET ARTHROPATHY This procedure is found to meet the Governor's proclamation 20-24.2 regarding non urgent procedures. This patient meets multiple criteria for the procedure including continuing or worsening of significant or severe pain, combined with further deterioration of the patient's condition or overall health as well as delay in treatment would be expected to result in less positive ultimate medical outcome. Therefore the decision to perform the procedure in an outpatient hospital setting is found to be in accordance with guidelines of the proclamation. Post-procedure diagnosis: same Procedure Notes Procedure: 1. Left L4, L5 and S1 MB BLOCKS Indications: Radha Christie is referred by Dr. Mahoney for treatment of Left Axial LBP. Physician: Froylan Castillo Total Fluoroscopy time (seconds): 4 Total sedation minutes: 10 Complications: none Procedure in detail & Post-procedure care: DESCRIPTION OF PROCEDURE Fluoroscopically guided, contrast-controlled left L4, L5 and S1 medial branch blocks with 0.5cc of 0.5% Marcaine. Following review of allergy and review of potential side effects and complications, including, but not necessarily limited to, infection, allergic reaction, local tissue breakdown, nerve injury, paralysis, stroke and possible , the patient indicated that the patient understood and agreed to proceed. An informed consent document was signed by the patient, witnessed by a nurse, and placed in the patient's chart. After review of previous anaesthesic history and IV conscious sedation the patient was deemed safe to proceed with today?s procedure with IV conscious sedation as ASA class II designation. Safety time-out was performed to confirm patient ID, procedure to be performed and site of procedure. IV sedation was accomplished with a combination of 3mg of Versed was administered by the RN after DO order, titrated to patient comfort during the course of the procedure while the patient remained responsive to all verbal commands. In the prone position, following sterile prep and drape of the lumbar region, the left L4, L5 and S1 anatomical location of the medial branch of the dorsal ramus was identified fluoroscopically. Subsequently an anesthetic skin wheal using 1% lidocaine solution was initiated at each of the anatomical spots. Subsequently then a 22-gauge 3.5-inch spinal needle was atraumatically introduced and advanced under fluoroscopic guidance at each of the corresponding sites at the left L4, L5 and S1 MB. After negative aspiration, 0.2cc of Isovue 200 was injected, confirming placement without vascular or intrathecal uptake. Subsequently then 0.5cc of 0.5% Marcaine solution was injected at each of the corresponding sites at the left L4, L5 and S1 medial branch locations. The patient tolerated the procedure well without signs or symptoms of complications. The patient tolerated the procedure well without signs or symptoms of complications prior to transfer to the recovery area continued monitoring without incident. Post-procedure, the patient was monitored initiating provocative activities to measure the amount of relief from block of the facetogenic pain. The patient reported a VAS of 7 prior to the procedure and a post-procedure VAS of 1. It has been a pleasure to assist in the diagnostic and therapeutic care of your patient. POST OP INSTRUCTIONS The patient was provided with a Pain Log to complete over the next several hours and subsequent days prior to the patient's follow up with the ordering physician. If the patient has hardwood floor sander relief to the solution applied, then they may be a candidate for medial branch rhizotomy. The patient is aware, was provided, once again, with a Pain Log and will follow up with the referring physician for review and clinical correlation.
== END 2021-09-13 16:48 | disposition home or self-care (01) ==
PROVIDERS: PCP Family Medicine; Referring Provider Physical Medicine & Rehabilitation; Visit Provider Physical Medicine & Rehabilitation
DX: M47.816 Spondylosis without myelopathy or radiculopathy, lumbar region (principal); M47.817 Spondylosis without myelopathy or radiculopathy, lumbosacral region
CPT/HCPCS: 64493; 64494; 99152; J2250; J3010

== ENCOUNTER → 2021-12-08 10:55 | Outpatient (CLI) | payer MEDICARE, SELFPAY ==
--- NOTE | 2021-12-08 10:57 | DI.RAD.S_ITS ---
PROCEDURE: XR LUMBAR SPINE MIN 4V INDICATIONS: BACK PAIN TECHNIQUE: 5 views of the lumbar spine were acquired, including bilateral oblique views. COMPARISON: [facility], , XR LUMBAR SPINE 2-3V, 10/14/2018, 15:15. FINDINGS: Bones: 5 nonrib-bearing vertebrae are present. There is grade 1 anterolisthesis at L4-5 measuring approximately 0.3 cm which appears similar to the prior study. There is mild multilevel disc space narrowing throughout the lumbar spine. Mild facet arthropathy is also demonstrated in the lower lumbar spine. No vertebral body compression fractures. No suspicious bony lesions. Soft tissues: Overlying bowel gas pattern is normal. No suspicious soft tissue calcifications. Oblique images: No pars defects. IMPRESSION: 1. Mild grade 1 anterolisthesis at L4-5 appears similar to the prior study. 2. No pars defects. 3. Mild multilevel degenerative disc disease and mild facet arthropathy in the lower lumbar spine. Dictated by: Isak Bocanegra M.D. on 12/08/2021 at 16:05 Approved by: Isak Bocanegra M.D. on 12/08/2021 at 16:06
== END ==
PROVIDERS: PCP Family Medicine; Referring Provider Physical Medicine & Rehabilitation; Visit Provider Physical Medicine & Rehabilitation
DX: M43.16 Spondylolisthesis, lumbar region (principal); M47.27 Other spondylosis with radiculopathy, lumbosacral region; M51.37 Other intervertebral disc degeneration, lumbosacral region
CPT/HCPCS: 72110

== ENCOUNTER → 2021-12-27 08:42 | Outpatient (CLI) | payer MEDICARE, SELFPAY ==
--- NOTE | 2021-12-27 08:44 | DI.RAD.S_ITS ---
PROCEDURE: XR THORACIC SPINE 3V INDICATIONS: chronic thoracic pain TECHNIQUE: 3 views of the thoracic spine were acquired. COMPARISON: None. FINDINGS: Bones: No fractures or dislocations. No suspicious bony lesions. Mild multilevel disc space narrowing and endplate osteophyte formation. Visualized ribs are intact. Soft tissues: No paravertebral stripe thickening. IMPRESSION: Multilevel degenerative disc disease. No acute fracture. No osseous lesion. If symptoms and/or clinical suspicion for pathology persist, further assessment with repeat, or advanced imaging (e.g., CT, MRI, or bone scan) may be helpful for further assessment. Dictated by: Glenny Cross M.D. on 12/27/2021 at 10:24 Approved by: Glenny Cross M.D. on 12/27/2021 at 10:25
[2021-12-27 10:53] LABS: Add Manual Diff / Slide Review NO; Basophils Absolute Auto 100 /uL (0-100); Basophils Percent Auto 1.1 % (0-2); Eosinophils Absolute Auto 400 /uL (0-450); Eosinophils Percent Auto 5.9 % (2-4); Hematocrit 44.9 % (36-46); Hemoglobin 15.1 g/dL (12.0-16.0); Lymphocytes Absolute Auto 2100 /uL (1100-4500); Lymphocytes Percent Auto 33.8 % (25-40); Mean Corpuscular HGB Conc 33.8 % (30-36); Mean Corpuscular Hemoglobin 30.1 PG (26-34); Mean Corpuscular Volume 89.2 fL (80-100); Monocytes Absolute Auto 500 /uL (0-900); Monocytes Percent Auto 7.3 % (3-14); Neutrophils Absolute Auto 3200 /uL (1500-7000); Neutrophils Percent Auto 51.9 % (50-75); Platelet Count 235 X10^3/uL (150-400); Red Blood Cell Count 5.03 X10^6/uL (4.0-5.2); Red Cell Distribution Width 13.7 % (11.6-14.8); White Blood Cell Count 6.3 X10^3/uL (4.5-11.0)
[2021-12-27 11:53] LABS: Alanine Aminotransferase 27 IU/L (<35); Albumin 4.7 g/dL (3.5-5.0); Albumin Globulin Ratio 1.5 (1.0-2.8); Alkaline Phosphatase 72 U/L (38-126); Aspartate Aminotransferase 26 IU/L (14-36); BUN Creatinine Ratio 21.5 (6-22); Bilirubin Total 0.9 mg/dL (0.2-1.3); Blood Urea Nitrogen 17 mg/dL (7-17); Carbon Dioxide 25 mmol/L (22-32); Chloride 105 mmol/L (98-107); Cholesterol 272 mg/dL (140-199); Estimated Glomerular Filt Rate > 60 mL/min (>60); Globulin 3.1 g/dL (1.7-4.1); Glucose 108 mg/dL (80-110); HDL Cholesterol 64 mg/dL (40-60); HEMOLYSIS < 15 (0-50); LDL Cholesterol Calculated 150 mg/dL (<100); Potassium 4.1 mmol/L (3.4-5.1); Sodium 139 mmol/L (137-145); Total Protein 7.8 g/dL (6.3-8.2); Triglycerides 290 mg/dL (35-150)
[2021-12-27 12:23] LABS: TSH w/ Reflex to FT4 1.25 uIU/mL (0.47-4.68)
== END ==
PROVIDERS: PCP Family Medicine; Referring Provider Physical Medicine & Rehabilitation; Visit Provider Physical Medicine & Rehabilitation
DX: E03.9 Hypothyroidism, unspecified (principal); M51.34 Other intervertebral disc degeneration, thoracic region; E78.5 Hyperlipidemia, unspecified; I10 Essential (primary) hypertension; G89.29 Other chronic pain
CPT/HCPCS: 36415; 72072; 80053; 80061; 84443; 85025

== ENCOUNTER → 2021-12-28 11:31 | Outpatient (CLI) | payer MEDICARE, SELFPAY | PROVIDERS: PCP Family Medicine; Referring Provider Family Medicine; Visit Provider Family Medicine | DX: Z78.0 Asymptomatic menopausal state (principal); M85.89 Other specified disorders of bone density and structure, multiple sites; Z79.890 Hormone replacement therapy; Z90.710 Acquired absence of both cervix and uterus | CPT/HCPCS: 77080 ==

== ENCOUNTER → 2022-01-19 09:33 | Outpatient (CLI) | payer MEDICARE, SELFPAY ==
--- NOTE | 2022-01-19 09:34 | DI.RAD.S_ITS ---
PROCEDURE: FL BARIUM SWALLOW INDICATIONS: Difficulty swallowing; history of GERD COMPARISON: None. FINDINGS: Function: There is normal esophageal peristalsis. No elicited gastroesophageal reflux. There is normal transit of a calibrated barium tablet through the esophagus into the stomach. Swallowing reflex is normal. No laryngotracheal penetration or aspiration. No pathologic vallecular pooling. No Zenker's diverticulum. Morphology: Air-contrast images demonstrate normal mucosal morphology. Single contrast views show no esophageal strictures, extrinsic mass effects, or diverticula. Limited images of the stomach demonstrate normal appearance. IMPRESSION: Normal examination. Dictated by: Brittney Kramer MD, PhD on 01/19/2022 at 11:55 Approved by: Brittney Kramer MD, PhD on 01/19/2022 at 11:56
== END ==
PROVIDERS: PCP Family Medicine; Referring Provider Physician Assistant; Visit Provider Physician Assistant
DX: R13.10 Dysphagia, unspecified (principal)
CPT/HCPCS: 74220

== ENCOUNTER → 2022-04-20 08:31 | Outpatient (CLI) | payer MEDICARE, SELFPAY ==
[2022-04-20 11:21] LABS: Cholesterol 252 mg/dL (140-199); HDL Cholesterol 68 mg/dL (40-60); LDL Cholesterol Calculated 151 mg/dL (<100); Triglycerides 163 mg/dL (35-150)
== END ==
PROVIDERS: PCP Family Medicine; Referring Provider Physician Assistant; Visit Provider Physician Assistant
DX: E78.5 Hyperlipidemia, unspecified (principal)
CPT/HCPCS: 36415; 80061

== ENCOUNTER → 2022-05-23 14:13 | Outpatient (CLI) | payer MEDICARE, SELFPAY ==
--- NOTE | 2022-05-23 14:15 | DI.MG.S_ITS ---
BILATERAL DIGITAL SCREENING MAMMOGRAM 3D/2D WITH CAD: 05/23/2022 CLINICAL: Routine screening. Family history of breast cancer. Comparison is made to exams dated: 04/30/2021 mammogram, 02/09/2020 mammogram, and 10/18/2018 mammogram - [facility]. There are scattered areas of fibroglandular density in both breasts (category b / 25%-50% glandular tissue). Current study was also evaluated with a Computer Aided Detection (CAD) system. There are benign calcifications in both breasts. No significant masses, calcifications, or other findings are seen in either breast. There has been no significant interval change. IMPRESSION: BENIGN There is no mammographic evidence of malignancy. A 1 year screening mammogram is recommended. Based on the Tyrer Cuzick model (a risk assessment model) the patient's lifetime risk is 2.5% and her 10 year risk is 0.0%. According to the ACR, ACS, and NCCN guidelines, an annual breast MRI exam along with mammogram is recommended if the patient's lifetime risk is 20% or greater. This exam was interpreted at Station ID: [id number]. NOTE: For mammograms, a report in lay terms will be sent to the patient. Approximately 15% of breast malignancies will not be visualized mammographically. In the management of a palpable breast mass, a negative mammogram must not discourage biopsy of a clinically suspicious lesion. Electronically Signed By: Handy sanchez/josafat:05/23/2022 14:57:20 letter sent: Normal Exam ACR BI-RADS Category 2: Benign Finding(s) 3342F
== END ==
PROVIDERS: PCP Family Medicine; Referring Provider Family Medicine; Visit Provider Family Medicine
DX: Z12.31 Encounter for screening mammogram for malignant neoplasm of breast (principal); Z80.3 Family history of malignant neoplasm of breast
CPT/HCPCS: 77063; 77067

== ENCOUNTER 2022-06-06 12:22 | Outpatient (CLI) | payer MEDICARE, SELFPAY ==
[2022-06-06] VITALS (9 sets, daily range): BP systolic 131–180; BP diastolic 56–85; PULSE 75–90; RESP 15–18; TEMP 36.6; O2SAT 96–100
--- NOTE | 2022-06-06 12:24 | DI.RAD.S_ITS ---
PROCEDURE: PAIN L/S FACET INJ/BLK 1ST KALANI COMPARISON: None. INDICATIONS: SPONDYLOSIS FINDINGS: Access needles identified at the bilateral L4-L5, L5-S1 and S1-S2 neural foramina. Injection of small amount of contrast material demonstrates the access needles are extra thecal. IMPRESSION: Access needles at the bilateral L4-L5, L5-S1 and S1-S2 neural foramina for bilateral L4, L5 and S1 medial branch blocks. Dictated by: Brittney Kramer MD, PhD on 06/06/2022 at 13:50 Approved by: Brittney Kramer MD, PhD on 06/06/2022 at 13:52
[2022-06-06] MEDS: MIDAZOLAM 2 MG/2 ML VIAL 4 MG IV (13:25)
[2022-06-06] MEDS: LIDOCAINE 1% 20 ML INJ (13:31)
[2022-06-06] MEDS: BUPIVACAINE 0.5% (PF) VIAL 10 ML INJ (13:33)
[2022-06-06] MEDS: IOPAMIDOL 15 ML VIAL 3 ML INJ (13:34)
--- NOTE | 2022-06-06 13:44 | P.PCN_ITS ---
Date/Time/Diagnoses Date of procedure: 06/06/22 Time of procedure: 13:45 Pre-procedure diagnosis: 1. FACET ARTHROPATHY Post-procedure diagnosis: same Procedure Notes Procedure: 1. BILATERAL- L4, L5 and S1 DIAGNOSTIC MB BLOCKS with SA Anesthetic Indications: Radha Soriano is referred by Dr. Mahoney for treatment of Bilateral Axial LBP. Physician: Froylan Castillo Total Fluoroscopy time (seconds): 10 Total sedation minutes: 14 Complications: none Procedure in detail & Post-procedure care: DESCRIPTION OF PROCEDURE Fluoroscopically guided, contrast-controlled bilateral L4, L5 and S1 medial branch blocks with 0.5cc of 2% Lidocaine. Following review of allergy and review of potential side effects and complications, including, but not necessarily limited to, infection, allergic reaction, local tissue breakdown, nerve injury, paralysis, stroke and possible , the patient indicated that the patient understood and agreed to proceed. An informed consent document was signed by the patient, witnessed by a nurse, and placed in the patient's chart. After review of previous anaesthesic history and IV conscious sedation the patient was deemed safe to proceed with today's procedure with IV conscious sed ation as ASA class II designation. Safety time-out was performed to confirm patient ID, procedure to be performed and site of procedure. IV sedation was accomplished with a combination of 4mg of Versed was administered by the RN after DO order, titrated to patient comfort during the course of the procedure while the patient remained responsive to all verbal commands In the prone position, following sterile prep and drape of the lumbar region, the right L4, L5 and S1 anatomical location of the medial branch of the dorsal ramus was identified fluoroscopically. Subsequently an anesthetic skin wheal using 1% lidocaine solution was initiated at each of the anatomical spots. Subsequently then a 22-gauge 3.5-inch spinal needle was atraumatically introduced and advanced under fluoroscopic guidance at each of the corresponding sites at the right L4, L5 and S1 MB. After negative aspiration, 0.2cc of Isovue 200 was injected, confirming placement without vascular or intrathecal uptake. Subsequently then 0.5cc of 2% Lidocaine solution was injected at each of the corresponding sites at the right L4, L5 and S1 medial branch locations. The identical procedure was replicated on the left. The patient tolerated the procedure well without signs or symptoms of complications prior to transfer to the recovery area continued monitoring without incident. Post-procedure, the patient was monitored initiating provocative activities to measure the amount of relief from block of the facetogenic pain. The patient reported a VAS of 7 prior to the procedure and a post-procedure VAS of 1. It has been a pleasure to assist in the diagnostic and therapeutic care of your patient. POST OP INSTRUCTIONS The patient was provided with a Pain Log to complete over the next several hours and subsequent days prior to the patient's follow up with the ordering physician. If the patient has director of family service center relief to the solution applied, then they may be a candidate for medial branch rhizotomy. The patient is aware, was provided, once again, with a Pain Log and will follow up with the referring physician for review and clinical correlation
== END 2022-06-06 14:12 | disposition home or self-care (01) ==
LOC: RAD 12:24
PROVIDERS: PCP Family Medicine; Referring Provider Physical Medicine & Rehabilitation; Visit Provider Physical Medicine & Rehabilitation
DX: M47.816 Spondylosis without myelopathy or radiculopathy, lumbar region (principal); M47.817 Spondylosis without myelopathy or radiculopathy, lumbosacral region
CPT/HCPCS: 64493; 64494; 99152; J2250

== ENCOUNTER → 2022-08-25 12:25 | Outpatient (CLI) | payer MEDICARE, SELFPAY ==
[2022-08-25 13:18] LABS: Influenza A - CEPHEID Flu A NEGATIVE (NEGATIVE); Influenza B - CEPHEID Flu B NEGATIVE (NEGATIVE); Respiratory Syncytial Virus Negative (Negative)
[2022-08-25 13:43] LABS: COVID-19 CEPHEID 4-PLEX PCR Negative (Negative)
== END ==
PROVIDERS: PCP Family Medicine; Visit Provider Student in an Organized Health Care Education/Training Program
DX: R09.81 Nasal congestion (principal); R42 Dizziness and giddiness; Z20.828 Contact with and (suspected) exposure to other viral communicable diseases
CPT/HCPCS: 0241U

== ENCOUNTER → 2022-10-04 11:21 | Outpatient (CLI) | payer MEDICARE, SELFPAY ==
[2022-10-04 12:54] LABS: Hemoglobin A1C% w Est Avg Glu 5.1 % (4.0-6.0)
== END ==
PROVIDERS: Family Provider Family Medicine; PCP Family Medicine; Referring Provider Family Medicine; Visit Provider Family Medicine
DX: R73.9 Hyperglycemia, unspecified (principal)
CPT/HCPCS: 36415; 83036

== ENCOUNTER 2022-10-24 13:45 | Outpatient (RCR) | payer MEDICARE, SELFPAY ==
--- NOTE | 2022-10-11 12:20 | PT.OIE ---
Current Diagnoses Benign paroxysmal vertigo, unspecified ear (10/11/22) Dizziness and giddiness (10/11/22) Past Medical History (Last Reviewed 09/18/22 @ 15:13 by Froylan Castillo DO) Chronic thoracic back pain Facet arthropathy, lumbar Foot pain, right Knee effusion, right Onychomycosis (01/21/15) Right knee pain Sciatica (12/16/14) Past Surgical History (Last Reviewed 09/18/22 @ 15:13 by Froylan Castillo DO) History of bladder suspension procedure Status post appendectomy Status post delivery Status post hysterectomy Visit Care Team Role Provider Type Clark Mahoney MD Family Provider Physician Primary Care Provider Specialty: Family Practice Address: [address] [place] [address], [id number] Email: [email or web address] Millicent Pedroza PA-C Attending Provider Physician Habitat Biologist Referring Provider Specialty: Address: [address] [place] [address], [id number] Email: Physical Therapy Initial Evaluation PT-OP-A Visit Information Start: 10/10/22 09:25 Freq: Status: Active Protocol: Document 10/11/22 09:48 AMB (Rec: 10/11/22 10:34 AMB [id number]) Out-Patient Physical Therapy Visit Information Visit Information Visit Type Initial Evaluation Visit Start Time 09:45 Visit Stop Time 10:30 Total Visit Minutes 45 Visit Number 1 PT-OP-B Current Condition Start: 10/10/22 09:25 Freq: Status: Active Protocol: Document 10/11/22 09:48 AMB (Rec: 10/11/22 10:34 AMB [id number]) Current Condition History of Current Condition Onset Date July 2022 Current Complaints Dizziness History of Current Condition Christie had horrible dizziness when rolling over in bed. Now most nights it doesn't bother , but when first lying down feels like the central part of the body moves. Vestibular migraine and vestibular neuritis is concerning by ENT. Does have pinched nerve in neck does endorse chronic tinnitis, otherwise no double vision PT-OP-C Subjective Start: 10/10/22 09:25 Freq: Status: Active Protocol: Document 10/11/22 09:45 AMB (Rec: 10/15/22 11:57 AMB [id number]) Patient Questionnaires Dizziness Handicap Inventory DHI Score 16 DHI Functional Impairment 1 to 19% Impaired (Score 1-19) PT-OP-O Vestibular Start: 10/10/22 09:25 Freq: Status: Active Protocol: Document 10/11/22 09:45 AMB (Rec: 10/12/22 21:51 AMB [id number]) Vestibular Assessment Visual Testing Smooth Pursuits Horizontal WFL Smooth Pursuits Vertical WFL Saccades Horizontal WFL Saccades Vertical WFL Thrust Head Positive Right DVA (Line Degradation) 3 Positional Testing Zimmerman-Hallpike Negative Left,Negative Right Rolling Test Negative Left,Negative Right Vestibular Function Tests mCTSIB Position 1 30 mCTSIB Position 2 30 mCTSIB Position 3 30 mCTSIB Position 4 ankle sway but still 30 seconds PT-OP-T Assessment and Plan Start: 10/10/22 09:25 Freq: Status: Active Protocol: Document 10/11/22 09:45 AMB (Rec: 10/15/22 12:19 AMB [id number]) Physical Therapy Assessment Rehab Potential Rehabilitation Potential Good Evaluation Complexity Number of Personal Factors/Comorbidities 0 Number of Body Systems Impaired 1-2 Clinical Presentation at Evaluation Evolving Impairments Impairments Vestibular Goals One Impairment Vestibular function Short Term Goal (STG) Christie will perform all bed mobility without dizziness. STG Duration 4 weeks Lead Portfolio Manager Goal (LTG) Christie will score 24/24 on the DGI to show improved vestibular function. LTG Duration 8 weeks Assessment Summary Assessment Christie attends physical therapy with a history of severe vertigo that persisted for 5 hours. Since that time sx have almost resolved, but not quite, still has a feeling of motion in bed at times. Evaluation was negative for signs of BPPV. She did show signs of reduced vestibular function on the right, but her DVA was only 3 lines. Pt report ENT concerned regarding vestibular neuritis vs migraine. It's plausible she could have had BPPV and otoliths have since cleared as she was performing Angulo- Daroff exercises as suggested by her son. However given the severity of the symptoms and continued low level sx vestibular neuritis vs migraine should certainly be considered. She does have a distant history of migraines without vestibular sx. The pt did have mild veering with walking with horizontal head turns, so would benefit from a short bout of physical therapy to improve her current level of sx and vestibular function. Physical Therapy Plan Frequency and Duration Frequency of Treatment 1x/Week Duration of treatment (weeks) 8 Plan of Care Start Date 10/11/22 Plan of Care End Date 12/06/22 Therapeutic Interventions Therapeutic Interventions Balance Training,Gait Training ,Home Exercise Program,Manual Therapy,Neuromuscular Re- education,Self-Care/Home Management,Therapeutic Activities,Therapeutic Exercises,Vestibular Rehabilitation Next Visit Focus/Plan Next Note Type Treatment Note Next Visit Plan Follow up with walking with head turns
--- NOTE | 2022-10-11 12:21 | PT.OPPOC ---
Physical, Occupational & Speech Therapy At [facility] Current Diagnoses Benign paroxysmal vertigo, unspecified ear (10/11/22) Dizziness and giddiness (10/11/22) Visit Care Team Role Provider Type Clark Mahoney MD Family Provider Physician Primary Care Provider Specialty: Family Practice Address: [address] [place] [address], [id number] Email: [email or web address] Millicent Pedroza PA-C Attending Provider Physician Carrot Buncher Referring Provider Specialty: Address: [address] [place] [address], [id number] Email: Plan Of Care PT-OP-T Assessment and Plan Start: 10/10/22 09:25 Freq: Status: Active Protocol: Document 10/11/22 09:45 AMB (Rec: 10/15/22 12:19 AMB [id number]) Physical Therapy Assessment Rehab Potential Rehabilitation Potential Good Evaluation Complexity Number of Personal Factors/Comorbidities 0 Number of Body Systems Impaired 1-2 Clinical Presentation at Evaluation Evolving Impairments Impairments Vestibular Goals One Impairment Vestibular function Short Term Goal (STG) Christie will perform all bed mobility without dizziness. STG Duration 4 weeks Shellfish Manager Goal (LTG) Christie will score 24/24 on the DGI to show improved vestibular function. LTG Duration 8 weeks Assessment Summary Assessment Christie attends physical therapy with a history of severe vertigo that persisted for 5 hours. Since that time sx have almost resolved, but not quite, still has a feeling of motion in bed at times. Evaluation was negative for signs of BPPV. She did show signs of reduced vestibular function on the right, but her DVA was only 3 lines. Pt report ENT concerned regarding vestibular neuritis vs migraine. It's plausible she could have had BPPV and otoliths have since cleared as she was performing Angulo- Daroff exercises as suggested by her son. However given the severity of the symptoms and continued low level sx vestibular neuritis vs migraine should certainly be considered. She does have a distant history of migraines without vestibular sx. The pt did have mild veering with walking with horizontal head turns, so would benefit from a short bout of physical therapy to improve her current level of sx and vestibular function. Physical Therapy Plan Frequency and Duration Frequency of Treatment 1x/Week Duration of treatment (weeks) 8 Plan of Care Start Date 10/11/22 Plan of Care End Date 12/06/22 Therapeutic Interventions Therapeutic Interventions Balance Training,Gait Training ,Home Exercise Program,Manual Therapy,Neuromuscular Re- education,Self-Care/Home Management,Therapeutic Activities,Therapeutic Exercises,Vestibular Rehabilitation Next Visit Focus/Plan Next Note Type Treatment Note Next Visit Plan Follow up with walking with head turns Plan of Care Dates Plan of Care Start Date 10/11/22 Plan of Care End Date 12/06/22 Electronically Signed by: Lyla Cuellar, PT 10/15/22 8625 If you are in agreement with this Plan of Care, please return a signed and dated copy. I have reviewed this Plan of Care and certify that the skilled therapy services above are required to meet the patient?s needs. Physician Signature Date Printed Name and Credentials Clinical Instructor Signature Printed Name and Credentials
--- NOTE | 2022-10-17 12:55 | PT.OTN ---
Current Diagnoses Benign paroxysmal vertigo, unspecified ear (10/17/22) Dizziness and giddiness (10/17/22) Physical Therapy Treatment Note PT-OP-A Visit Information Start: 10/10/22 09:25 Freq: Status: Active Protocol: Document 10/17/22 09:50 AMB (Rec: 10/17/22 10:30 AMB [id number]) Out-Patient Physical Therapy Visit Information Visit Information Visit Type Treatment Note Visit Start Time 09:45 Visit Stop Time 10:30 Total Visit Minutes 45 Visit Number 2 PT-OP-B Current Condition Start: 10/10/22 09:25 Freq: Status: Active Protocol: Document 10/11/22 09:48 AMB (Rec: 10/11/22 10:34 AMB [id number]) Current Condition History of Current Condition Onset Date July 2022 Current Complaints Dizziness History of Current Condition Christie had horrible dizziness when rolling over in bed. Now most nights it doesn't bother , but when first lying down feels like the central part of the body moves. Vestibular migraine and vestibular neuritis is concerning by ENT. Does have pinched nerve in neck does endorse chronic tinnitis, otherwise no double vision PT-OP-C Subjective Start: 10/10/22 09:25 Freq: Status: Active Protocol: Document 10/17/22 09:50 AMB (Rec: 10/17/22 10:30 AMB [id number]) OP-PT Subjective Patient Comments Patient Comments Pt notes one episode of increased dizziness after drinking at her anniversary green party. PT-OP-O Vestibular Start: 10/10/22 09:25 Freq: Status: Active Protocol: Document 10/11/22 09:45 AMB (Rec: 10/12/22 21:51 AMB [id number]) Vestibular Assessment Visual Testing Smooth Pursuits Horizontal WFL Smooth Pursuits Vertical WFL Saccades Horizontal WFL Saccades Vertical WFL Thrust Head Positive Right DVA (Line Degradation) 3 Positional Testing Dea-Hallpike Negative Left,Negative Right Rolling Test Negative Left,Negative Right Vestibular Function Tests mCTSIB Position 1 30 mCTSIB Position 2 30 mCTSIB Position 3 30 mCTSIB Position 4 ankle sway but still 30 seconds PT-OP-Q Treatments Start: 10/10/22 09:25 Freq: Status: Active Protocol: Document 10/17/22 09:45 AMB (Rec: 10/18/22 12:55 AMB [id number]) Neuro Re-Education Treatment Balance Activities foam Details EC, and then VOR walkign with head turns Details horizontal, vertical and diagonal Reps/Duration 5 min 1 Details 3 step and head turn PT-OP-T Assessment and Plan Start: 10/10/22 09:25 Freq: Status: Active Protocol: Document 10/17/22 09:50 AMB (Rec: 10/17/22 10:30 AMB [id number]) Physical Therapy Assessment Goals One Impairment Vestibular function Short Term Goal (STG) Christie will perform all bed mobility without dizziness. STG Duration 4 weeks [facility] Goal (LTG) Christie will score 24/24 on the DGI to show improved vestibular function. LTG Duration 8 weeks Assessment Summary Assessment Christie attends having had one worse night in the last week where dizziness was worse than normal, after drinking a little for her anniversary. She notes she has been working on walking with horizontal head turns at home, is going to follow up wiht Dr. Steinberg regarding dizziness, also concerned about history of swallowing difficulty but did have a normal barium swallow. Physical Therapy Plan Frequency and Duration Frequency of Treatment 1x/Week Duration of treatment (weeks) 8 Plan of Care Start Date 10/11/22 Plan of Care End Date 12/06/22 Therapeutic Interventions Therapeutic Interventions Balance Training,Gait Training ,Home Exercise Program,Manual Therapy,Neuromuscular Re- education,Self-Care/Home Management,Therapeutic Activities,Therapeutic Exercises,Vestibular Rehabilitation Next Visit Focus/Plan Next Note Type Treatment Note Next Visit Plan Follow up with walking with head turns
--- NOTE | 2022-10-24 18:45 | PT.OTN ---
Current Diagnoses Benign paroxysmal vertigo, unspecified ear (10/24/22) Dizziness and giddiness (10/24/22) Physical Therapy Treatment Note PT-OP-A Visit Information Start: 10/10/22 09:25 Freq: Status: Active Protocol: Document 10/24/22 13:48 AMB (Rec: 10/24/22 14:31 AMB [id number]) Out-Patient Physical Therapy Visit Information Visit Information Visit Type Treatment Note Visit Start Time 13:45 Visit Stop Time 14:30 Total Visit Minutes 45 Visit Number 3 PT-OP-B Current Condition Start: 10/10/22 09:25 Freq: Status: Active Protocol: Document 10/11/22 09:48 AMB (Rec: 10/11/22 10:34 AMB [id number]) Current Condition History of Current Condition Onset Date July 2022 Current Complaints Dizziness History of Current Condition Christie had horrible dizziness when rolling over in bed. Now most nights it doesn't bother , but when first lying down feels like the central part of the body moves. Vestibular migraine and vestibular neuritis is concerning by ENT. Does have pinched nerve in neck does endorse chronic tinnitis, otherwise no double vision PT-OP-C Subjective Start: 10/10/22 09:25 Freq: Status: Active Protocol: Document 10/24/22 13:48 AMB (Rec: 10/24/22 14:31 AMB [id number]) OP-PT Subjective Patient Comments Patient Comments Pt is noting some dizziness through the day. PT-OP-O Vestibular Start: 10/10/22 09:25 Freq: Status: Active Protocol: Document 10/11/22 09:45 AMB (Rec: 10/12/22 21:51 AMB [id number]) Vestibular Assessment Visual Testing Smooth Pursuits Horizontal WFL Smooth Pursuits Vertical WFL Saccades Horizontal WFL Saccades Vertical WFL Thrust Head Positive Right DVA (Line Degradation) 3 Positional Testing [place]-Hallpike Negative Left,Negative Right Rolling Test Negative Left,Negative Right Vestibular Function Tests mCTSIB Position 1 30 mCTSIB Position 2 30 mCTSIB Position 3 30 mCTSIB Position 4 ankle sway but still 30 seconds PT-OP-Q Treatments Start: 10/10/22 09:25 Freq: Status: Active Protocol: Document 10/24/22 13:48 AMB (Rec: 10/24/22 14:31 AMB [id number]) Neuro Re-Education Treatment Balance Activities foam Details EC, and then VOR walkign with head turns Details horizontal, vertical and diagonal Reps/Duration 5 min 1 Details 3 step and head turn Other Activities grounding Comments while lying sidelying/supine as that is really what causes the most sx PT-OP-T Assessment and Plan Start: 10/10/22 09:25 Freq: Status: Active Protocol: Document 10/24/22 13:48 AMB (Rec: 10/24/22 14:31 AMB [id number]) Physical Therapy Assessment Goals One Impairment Vestibular function Short Term Goal (STG) Christie will perform all bed mobility without dizziness. STG Duration 4 weeks Hog Buyer Goal (LTG) Christie will score 24/24 on the DGI to show improved vestibular function. LTG Duration 8 weeks Assessment Summary Assessment At least a 2-3/10 dizziness and at the worst 4/10 dizziness. Worst at night, but mildly present during the day, really not reproduced by anything other than lying down . Encouraged pt in grounding, is going to be getting a VNG soon. Encouraged to continue with head turns, vertical horizontal Physical Therapy Plan Frequency and Duration Frequency of Treatment 1x/Week Duration of treatment (weeks) 8 Plan of Care Start Date 10/11/22 Plan of Care End Date 12/06/22 Therapeutic Interventions Therapeutic Interventions Balance Training,Gait Training ,Home Exercise Program,Manual Therapy,Neuromuscular Re- education,Self-Care/Home Management,Therapeutic Activities,Therapeutic Exercises,Vestibular Rehabilitation Next Visit Focus/Plan Next Note Type Treatment Note Next Visit Plan Follow up with walking with head turns
--- NOTE | 2022-11-12 10:52 | PT.OPDS ---
Current Diagnoses Benign paroxysmal vertigo, unspecified ear (10/24/22) Dizziness and giddiness (10/24/22) Visit Care Team Role Provider Type Calrk Mahoney MD Family Provider Physician Primary Care Provider Specialty: Family Practice Address: [address] [place] [id number] Email: [email or web address] Millicent Pedroza PA-C Attending Provider Physician Stress Engineer Referring Provider Specialty: Emergency Medicine Address: [address] [place] [address], [phone] Email: Visit Number Visit Number 3 Discharge Summary PT-OP-B Current Condition Start: 10/10/22 09:25 Freq: Status: Active Protocol: Document 10/11/22 09:48 AMB (Rec: 10/11/22 10:34 AMB [id number]) Current Condition History of Current Condition Onset Date July 2022 Current Complaints Dizziness History of Current Condition Christie had horrible dizziness when rolling over in bed. Now most nights it doesn't bother , but when first lying down feels like the central part of the body moves. Vestibular migraine and vestibular neuritis is concerning by ENT. Does have pinched nerve in neck does endorse chronic tinnitis, otherwise no double vision PT-OP-C Subjective Start: 10/10/22 09:25 Freq: Status: Active Protocol: Document 10/24/22 13:48 AMB (Rec: 10/24/22 14:31 AMB [id number]) OP-PT Subjective Patient Comments Patient Comments Pt is noting some dizziness through the day. PT-OP-O Vestibular Start: 10/10/22 09:25 Freq: Status: Active Protocol: Document 10/11/22 09:45 AMB (Rec: 10/12/22 21:51 AMB [id number]) Vestibular Assessment Visual Testing Smooth Pursuits Horizontal WFL Smooth Pursuits Vertical WFL Saccades Horizontal WFL Saccades Vertical WFL Thrust Head Positive Right DVA (Line Degradation) 3 Positional Testing Dea-Hallpike Negative Left,Negative Right Rolling Test Negative Left,Negative Right Vestibular Function Tests mCTSIB Position 1 30 mCTSIB Position 2 30 mCTSIB Position 3 30 mCTSIB Position 4 ankle sway but still 30 seconds PT-OP-T Assessment and Plan Start: 10/10/22 09:25 Freq: Status: Active Protocol: Document 11/12/22 10:51 AMB (Rec: 11/12/22 10:52 AMB [id number]) Physical Therapy Assessment Goals One Impairment Vestibular function Short Term Goal (STG) Christie will perform all bed mobility without dizziness. STG Duration 4 weeks Sock Lining Stitcher Goal (LTG) Christie will score 24/24 on the DGI to show improved vestibular function. LTG Duration 8 weeks Assessment Summary Assessment Pt canceled remaining PT appointments as [place] be [place]. Physical Therapy Plan Discharge Physical Therapy Discharge Reasons No Longer Attending PT
== END 2022-11-13 11:10 | disposition home or self-care (01) ==
LOC: PHYS 13:45
PROVIDERS: Family Provider Family Medicine; PCP Family Medicine; Referring Provider Student in an Organized Health Care Education/Training Program; Visit Provider Student in an Organized Health Care Education/Training Program
DX: H81.10 Benign paroxysmal vertigo, unspecified ear (principal); R42 Dizziness and giddiness
CPT/HCPCS: 97112; 97161

== ENCOUNTER → 2023-01-18 15:23 | Outpatient (CLI) | payer MEDICARE, SELFPAY ==
--- NOTE | 2023-01-18 15:31 | DI.RAD.S_ITS ---
PROCEDURE: XR CHEST 2V INDICATIONS: Persistent cough since 01/05; onset fever/chills TECHNIQUE: 2 views of the chest were acquired. COMPARISON: [facility], CR, XR CHEST 1V, 09/15/2019, 10:32. FINDINGS: Surgical changes and devices: None. Lungs and pleura: Lungs are clear. No pleural effusions or pneumothorax. Mediastinum: Mediastinal contours are normal. Heart size is normal. Bones and chest wall: No suspicious bony abnormalities. Soft tissues appear unremarkable. IMPRESSION: No acute cardiopulmonary disease. Dictated by: Ben John M.D. on 01/19/2023 at 7:43 Approved by: Ben John M.D. on 01/19/2023 at 7:44
[2023-01-18 19:23] LABS: Appearance Urine UA CLEAR; Bilirubin Urine UA NEGATIVE (NEGATIVE); Color Urine UA YELLOW; Glucose Urine UA NEGATIVE (Negative); Ketones Urine UA NEGATIVE (NEGATIVE); Leukocyte Esterase Urine UA NEGATIVE (NEGATIVE); Nitrite Urine UA NEGATIVE (Negative); Occult Blood Urine UA NEGATIVE (Negative); Protein Urine UA NEGATIVE (Negative); Specific Gravity Urine UA 1.025 (1.000-1.035); Urobilinogen Urine UA 0.2 E.U./dL (0.2)
[2023-01-18 19:31] LABS: Amorphous Sediment Urine 1+; Bacteria Urine Moderate (10-30); Culture Indicated Urine Specimen Cultured; Mucus Urine 1+ (Negative); RBC Urine None Seen (0-5/HPF); Squamous Epithelial Cell Urine 1-5 /HPF (0-5/HPF); WBC Urine 1-5/HPF (0-5/HPF)
== END ==
PROVIDERS: Family Provider Family Medicine; PCP Family Medicine; Referring Provider Physician Assistant; Visit Provider Physician Assistant
DX: N30.00 Acute cystitis without hematuria (principal); R05.9 Cough, unspecified
CPT/HCPCS: 71046; 81001; 87086

== ENCOUNTER → 2023-02-01 12:12 | Outpatient (CLI) | payer MEDICARE, SELFPAY | PROVIDERS: Family Provider Family Medicine; PCP Family Medicine; Visit Provider Nurse Practitioner Family | DX: R30.0 Dysuria (principal); R35.0 Frequency of micturition | CPT/HCPCS: 87086 ==

== ENCOUNTER → 2023-02-01 12:20 | Outpatient (CLI) | payer MEDICARE, SELFPAY ==
[2023-02-01 13:02] LABS: Hematocrit 41.3 % (36-46); Mean Corpuscular HGB Conc 33.8 % (30-36); Mean Corpuscular Hemoglobin 30.9 PG (26-34); Mean Corpuscular Volume 91.2 fL (80-100); Platelet Count 174 X10^3/uL (150-400); Red Blood Cell Count 4.53 X10^6/uL (4.0-5.2); Red Cell Distribution Width 14.1 % (11.6-14.8); White Blood Cell Count 8.1 X10^3/uL (4.5-11.0)
[2023-02-01 13:19] LABS: BUN Creatinine Ratio 24.7 (6-22); Blood Urea Nitrogen 18 mg/dL (7-17); Calcium 9.1 mg/dL (8.4-10.2); Carbon Dioxide 26 mmol/L (22-32); Chloride 104 mmol/L (98-107); Estimated Glomerular Filt Rate > 60 mL/min (>60); Glucose 89 mg/dL (80-110); HEMOLYSIS < 15 (0-50); Potassium 4.1 mmol/L (3.4-5.1); Sodium 138 mmol/L (137-145)
== END ==
PROVIDERS: Family Provider Family Medicine; PCP Family Medicine; Referring Provider Nurse Practitioner Family; Visit Provider Nurse Practitioner Family
DX: N12 Tubulo-interstitial nephritis, not specified as acute or chronic (principal); R30.0 Dysuria; R35.0 Frequency of micturition
CPT/HCPCS: 36415; 80048; 85027; 87077; 87086; 87186

== ENCOUNTER → 2023-03-27 14:57 | Outpatient (CLI) | payer MEDICARE, SELFPAY | PROVIDERS: Family Provider Family Medicine; PCP Family Medicine; Visit Provider Physician Assistant | DX: N23 Unspecified renal colic (principal) | CPT/HCPCS: 87086 ==

== ENCOUNTER 2023-04-05 12:27 | Outpatient (CLI) | payer MEDICARE, SELFPAY ==
[2023-04-05] VITALS (8 sets, daily range): BP systolic 141–187; BP diastolic 61–81; PULSE 67–98; RESP 14–20; TEMP 37; O2SAT 96–98
--- NOTE | 2023-04-05 12:28 | DI.RAD.S_ITS ---
PROCEDURE: PAIN L/S FACET INJ/BLK 1ST KALANI COMPARISON: [facility], XA, PAIN L/S FACET INJ/BLK 1ST KALANI, 06/06/2022, 13:31. INDICATIONS: SPONDYLOSIS FINDINGS: Access needles at the bilateral L4, L5 and S1 pedicles . Injection of small amount of contrast material confirms positioning of the needle tips in demonstrates needle tips are extra thecal. IMPRESSION: Access needles at bilateral L4, L5 and S1 pedicles for bilateral L4, L5 and S1 medial branch block. Dictated by: Brittney Kramer MD, PhD on 04/05/2023 at 14:36 Approved by: Brittney Kramer MD, PhD on 04/05/2023 at 14:40
[2023-04-05] MEDS: MIDAZOLAM 2 MG/2 ML VIAL IV (13:20)
[2023-04-05] MEDS: LIDOCAINE 1% 20 ML INJ (13:25)
[2023-04-05] MEDS: IOPAMIDOL 15 ML VIAL 3 ML INJ (13:26)
[2023-04-05] MEDS: BUPIVACAINE 0.5% (PF) 10 ML VIAL 3 ML INJ (13:26)
--- NOTE | 2023-04-05 13:39 | P.PCN_ITS ---
Date/Time/Diagnoses Date of procedure: 04/05/23 Time of procedure: 13:39 Pre-procedure diagnosis: 1. FACET ARTHROPATHY Post-procedure diagnosis: same Procedure Notes Procedure: 1. BILATERAL- L4, L5 and S1 DIAGNOSTIC MB BLOCKS with LA Anesthetic Indications: Radha Soriano is referred by Dr. Mahoney for treatment of Bilateral Axial LBP. Physician: Froylan Castillo Total Fluoroscopy time (seconds): 11 Total sedation minutes: 16 Complications: none Procedure in detail & Post-procedure care: DESCRIPTION OF PROCEDURE Fluoroscopically guided, contrast-controlled bilateral L4, L5 and S1 medial branch blocks with 0.5cc of 0.5% Marcaine. Following review of allergy and review of potential side effects and complications, including, but not necessarily limited to, infection, allergic reaction, local tissue breakdown, nerve injury, paralysis, stroke and possible , the patient indicated that the patient understood and agreed to proceed. An informed consent document was signed by the patient, witnessed by a nurse, and placed in the patient's chart. After review of previous anaesthesic history and IV conscious sedation the patient was deemed safe to proceed with today's procedure with IV conscious se dation as ASA class II designation. Safety time-out was performed to confirm patient ID, procedure to be performed and site of procedure. IV sedation was accomplished with a combination of 2mg of Versed was administered by the RN after DO order, titrated to patient comfort during the course of the procedure while the patient remained responsive to all verbal commands In the prone position, following sterile prep and drape of the lumbar region, the right L4, L5 and S1 anatomical location of the medial branch of the dorsal ramus was identified fluoroscopically. Subsequently an anesthetic skin wheal using 1% lidocaine solution was initiated at each of the anatomical spots. Subsequently then a 22-gauge 3.5-inch spinal needle was atraumatically introduced and advanced under fluoroscopic guidance at each of the corresponding sites at the right L4, L5 and S1 MB. After negative aspiration, 0.2cc of Isovue 200 was injected, confirming placement without vascular or intrathecal uptake. Subsequently then 0.5cc of 0.5% Marcaine solution was injected at each of the corresponding sites at the right L4, L5 and S1 medial branch locations. The identical procedure was replicated on the left. The patient tolerated the procedure well without signs or symptoms of complications prior to transfer to the recovery area continued monitoring without incident. Post-procedure, the patient was monitored initiating provocative activities to measure the amount of relief from block of the facetogenic pain. The patient reported a VAS of 7 prior to the procedure and a post-procedure VAS of 1. It has been a pleasure to assist in the diagnostic and therapeutic care of your patient. POST OP INSTRUCTIONS The patient was provided with a Pain Log to complete over the next several hours and subsequent days prior to the patient's follow up with the ordering physician. If the patient has polymer specialist relief to the solution applied, then they may be a candidate for medial branch rhizotomy. The patient is aware, was provided, once again, with a Pain Log and will follow up with the referring physician for review and clinical correlation
== END 2023-04-05 13:55 | disposition home or self-care (01) ==
LOC: RAD 12:28
PROVIDERS: Family Provider Family Medicine; PCP Family Medicine; Referring Provider Physical Medicine & Rehabilitation; Visit Provider Physical Medicine & Rehabilitation
DX: M47.816 Spondylosis without myelopathy or radiculopathy, lumbar region (principal); M47.817 Spondylosis without myelopathy or radiculopathy, lumbosacral region
CPT/HCPCS: 64493; 64494; 99152; J2250

== ENCOUNTER → 2023-04-19 11:52 | Outpatient (CLI) | payer MEDICARE, SELFPAY ==
[2023-04-19 13:24] LABS: Appearance Urine UA CLEAR; Bilirubin Urine UA NEGATIVE (NEGATIVE); Color Urine UA YELLOW; Glucose Urine UA NEGATIVE (Negative); Ketones Urine UA NEGATIVE (NEGATIVE); Leukocyte Esterase Urine UA 2+ (NEGATIVE); Nitrite Urine UA NEGATIVE (Negative); Occult Blood Urine UA NEGATIVE (Negative); Protein Urine UA NEGATIVE (Negative); Urobilinogen Urine UA 0.2 E.U./dL (0.2)
[2023-04-19 13:43] LABS: Bacteria Urine Moderate (10-30); Culture Indicated Urine Specimen Cultured; RBC Urine 0-1/HPF (0-5/HPF); Squamous Epithelial Cell Urine 0-1 /HPF (0-5/HPF); WBC Urine 5-10/HPF (0-5/HPF)
== END ==
PROVIDERS: Family Provider Family Medicine; PCP Family Medicine; Referring Provider Physician Assistant; Visit Provider Physician Assistant
DX: R30.0 Dysuria (principal)
CPT/HCPCS: 81003; 81015; 87077; 87086; 87186

== ENCOUNTER → 2023-06-20 14:59 | Outpatient (CLI) | payer MEDICARE, SELFPAY ==
[2023-06-20 18:24] LABS: Appearance Urine UA CLEAR; Bilirubin Urine UA NEGATIVE (NEGATIVE); Color Urine UA YELLOW; Glucose Urine UA NEGATIVE (Negative); Ketones Urine UA NEGATIVE (NEGATIVE); Leukocyte Esterase Urine UA NEGATIVE (NEGATIVE); Nitrite Urine UA NEGATIVE (Negative); Occult Blood Urine UA NEGATIVE (Negative); Protein Urine UA NEGATIVE (Negative); Urobilinogen Urine UA 0.2 E.U./dL (0.2)
[2023-06-20 18:28] LABS: Bacteria Urine Moderate (10-30); Culture Indicated Urine Cult Not Indicated; RBC Urine None Seen (0-5/HPF); Squamous Epithelial Cell Urine 0-1 /HPF (0-5/HPF); WBC Urine 0-1/HPF (0-5/HPF)
== END ==
PROVIDERS: Family Provider Family Medicine; PCP Family Medicine; Visit Provider Physician Assistant
DX: R30.0 Dysuria (principal)
CPT/HCPCS: 81001

== ENCOUNTER → 2023-07-10 09:44 | Outpatient (CLI) | payer MEDICARE, SELFPAY ==
--- NOTE | 2023-07-10 09:46 | DI.US.S_ITS ---
PROCEDURE: US RENAL COMPLETE INDICATIONS: LEFT SIDE PAIN TECHNIQUE: Real-time scanning was performed of the kidneys and bladder, with image documentation. COMPARISON: None. FINDINGS: Kidneys: Kidneys are normal in size. Right kidney measures 10.4 cm long; left kidney measures 11.2 cm long. Right renal cortical thickness is 1.9 cm; left renal cortical thickness is 1.5 cm. Renal cortical echotexture is normal. No hydronephrosis or nephrolithiasis. No suspicious solid mass lesions. Bladder: Pre-void bladder volume is 418 mL. Post-void residual is 29 mL. Pre-void images demonstrate no intraluminal masses or stones. On pre-void images, both ureteral jets are noted with color Doppler interrogation. (Of note, ureteral jets may not be detectable in up to 25% of cases due to insufficient differences in specific gravity between ureteral and bladder urine). Miscellaneous: No free pelvic fluid. IMPRESSION: Unremarkable renal ultrasound. No hydronephrosis. Dictated by: Wenceslao Malave M.D. on 07/10/2023 at 12:39 Approved by: Wenceslao Malave M.D. on 07/10/2023 at 12:39
== END ==
PROVIDERS: Family Provider Family Medicine; PCP Family Medicine; Referring Provider Physician Assistant; Visit Provider Physician Assistant
DX: M54.9 Dorsalgia, unspecified (principal)
CPT/HCPCS: 76770

== ENCOUNTER 2023-07-11 10:30 | Outpatient (RCR) | payer MEDICARE, SELFPAY ==
--- NOTE | 2023-02-02 16:48 | PT.OIE ---
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) Other disorders of vestibular function, unspecified ear (02/02/23) Unsteadiness on feet (02/02/23) Abnormal vestibular function study (02/02/23) Past Medical History (Last Reviewed 09/18/22 @ 15:13 by Froylan Castillo DO) Chronic thoracic back pain Facet arthropathy, lumbar Foot pain, right Knee effusion, right Onychomycosis (01/21/15) Right knee pain Sciatica (12/16/14) Past Surgical History (Last Reviewed 09/18/22 @ 15:13 by Froylan Castillo DO) History of bladder suspension procedure Status post appendectomy Status post delivery Status post hysterectomy Visit Care Team Role Provider Type Clark Mahoney MD Family Provider Physician Primary Care Provider Specialty: Family Practice Address: [address] [place] [address] Email: [email or web address] Rony Steinberg MD Attending Provider Physician Referring Provider Specialty: Ear, Nose, Throat Address: [address] [place] [address] Email: [email or web address] Physical Therapy Initial Evaluation PT-OP-A Visit Information Start: 02/02/23 16:06 Freq: Status: Active Protocol: Document 02/02/23 13:30 DCW (Rec: 02/02/23 16:17 DC [id number]) Out-Patient Physical Therapy Visit Information Visit Information Visit Type Initial Evaluation Visit Start Time 13:30 Visit Stop Time 14:15 Total Visit Minutes 45 Visit Number 1 Number of SHAMPOOER Visits 0 Evaluation Information Evaluation Date 02/02/23 PT-OP-B Current Condition Start: 02/02/23 16:06 Freq: Status: Active Protocol: Document 02/02/23 13:30 DCW (Rec: 02/02/23 16:17 DC [id number]) Current Condition History of Current Condition Onset Date ~7 month history Current Complaints Instability/rocking sensation History of Current Condition Pt is a 77 year old female complaining of a seven month history of a wavy, rocking sensation when lying in bed. Pt reports it is pretty much constant any time she is lying in bed. Additionally notes some decreased stability when turning her head in standing. Admits that it began in July, when she had a very unfortunate episode of a constant, high-speed vertigo lasting about five hours. 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 Pt denies recent hearing changes , diplopia, or dysarthria, although does note tinnitus. Pt does think her symptoms have improved somewhat since it began, but is not really sure. Pt reports symptoms are not waxing/waning in nature. PT-OP-C Subjective Start: 02/02/23 16:06 Freq: Status: Active Protocol: Document 02/02/23 13:30 DCW (Rec: 02/02/23 16:17 DCW [id number]) OP-PT Subjective Patient Comments Patient Comments I've met with a neurologist, and I have a brain MRI scheduled for next Sunday. Patient Questionnaires Dizziness Handicap Inventory DHI Score 16% DHI Functional Impairment 1 to 19% Impaired (Score 1-19) PT-OP-O Vestibular Start: 02/02/23 16:06 Freq: Status: Active Protocol: Document 02/02/23 13:30 DCW (Rec: 02/02/23 16:17 DCW [id number]) Vestibular Assessment Screening Tests Vestibular Artery Screen Negative Auditory Tests Garcia Test Within normal limits Rinne Test Negative Air Conduction Results Equal Visual Testing Smooth Pursuits Horizontal WNL Smooth Pursuits Vertical WNL Saccades Horizontal WNL Saccades Vertical WNL Heave Test Positive Right Thrust Head Positive Right DVA (Line Degradation) 5 Spontaneous Nystagmus Negative Positional Testing [place]-Hallpike Negative Left,Negative Right Rolling Test Negative Left,Negative Right Vestibular Function Tests Fukuda Test Negative Comments Vestibular Comments Tandem ambulation: Very unstable 4 steps PT-OP-Q Treatments Start: 02/02/23 16:06 Freq: Status: Active Protocol: Document 02/02/23 13:30 DCW (Rec: 02/02/23 16:17 DCW [id number]) Neuro Re-Education Treatment Vestibular Rehabilitation X1 Viewing Details Static target with head turns Distance From Target Arm's length Speed as tolerated Position Seated VOR Retraining Details Head, eyes, and target moving together Distance From Target Arm's length Speed as tolerated Position Seated PT-OP-T Assessment and Plan Start: 02/02/23 16:06 Freq: Status: Active Protocol: Document 02/02/23 13:30 DCW (Rec: 02/02/23 16:45 DCW [id number]) Physical Therapy Assessment Rehab Potential Rehabilitation Potential Good Evaluation Complexity Number of Personal Factors/Comorbidities 0 Number of Body Systems Impaired 1-2 Clinical Presentation at Evaluation Unstable Impairments Impairments Balance,Coordination, Functional Activities, Functional Mobility,Sensation, Vestibular Goals Two Impairment Pt experiences sensation of rocking/waviness at all times when in bed Evaluation Advisor Goal (LTG) Pt to report being asymptomatic throughout the night 60% of the time LTG Duration 04/04/23 One Impairment Pt does not have an appropriate home exercise program Short Term Goal (STG) Pt to be independent and compliant with an appropriate HEP STG Duration 03/04/23 Assessment Summary Assessment Pt presents with signs and symptoms consistent with mild right-sided vestibular loss. Pt relays subjective description that includes a start in July with five hours of intense, constant vertigo, which then faded into more of a sensation of general instability, worsened with lying in bed (constant in any position) or when turning her head quickly when standing. This history is strongly suggestive of Vestibular Neuritis, more likely than Labrynthitis due to no notable hearing loss. As would be expected, pt struggles with DVA and presents with positive right Thrust and Heave tests. Pt is likely experiencing worsened symptoms at night due to limited input from other sources (proprioceptive, visual) causing her to notice vestibular dysfunction more clearly. This also fits with results of her VNG, which, per Dr Steinberg' chart notes, showed right-sided vestibular loss. Pt should benefit from skilled vestibular therapy focusing on vestibular compensation, working on habituation and adaptation exercises. HEP started today, with VOR and X1 training. Physical Therapy Plan Frequency and Duration Frequency of Treatment 1-2x/week Plan of Care Start Date 02/02/23 Plan of Care End Date 04/04/23 Therapeutic Interventions Therapeutic Interventions Balance Training,Canalithic Repositioning,Coordination Training,Home Exercise Program ,Manual Therapy,Neuromuscular Re-education,Patient/Caregiver Education,Self-Care/Home Management,Therapeutic Activities,Therapeutic Exercises,Vestibular Rehabilitation Next Visit Focus/Plan Next Note Type Treatment Note Next Visit Plan Vestibular rehabilitation, Adaptation/habituation exercises
--- NOTE | 2023-02-02 16:48 | PT.OPPOC ---
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) Other disorders of vestibular function, unspecified ear (02/02/23) Unsteadiness on feet (02/02/23) Abnormal vestibular function study (02/02/23) Visit Care Team Role Provider Type Clark Mahoney MD Family Provider Physician Primary Care Provider Specialty: Family Practice Address: [address] [place] [address], [id number] Email: [email or web address] Rony Steinberg MD Attending Provider Physician Referring Provider Specialty: Ear, Nose, Throat Address: [address] [place] [address], [id number] Email: [email or web address] Plan Of Care PT-OP-T Assessment and Plan Start: 02/02/23 16:06 Freq: Status: Active Protocol: Document 02/02/23 13:30 DCW (Rec: 02/02/23 16:45 DCW [id number]) Physical Therapy Assessment Rehab Potential Rehabilitation Potential Good Evaluation Complexity Number of Personal Factors/Comorbidities 0 Number of Body Systems Impaired 1-2 Clinical Presentation at Evaluation Unstable Impairments Impairments Balance,Coordination, Functional Activities, Functional Mobility,Sensation, Vestibular Goals Two Impairment Pt experiences sensation of rocking/waviness at all times when in bed Lean Manager Goal (LTG) Pt to report being asymptomatic throughout the night 60% of the time LTG Duration 04/04/23 One Impairment Pt does not have an appropriate home exercise program Short Term Goal (STG) Pt to be independent and compliant with an appropriate HEP STG Duration 03/04/23 Assessment Summary Assessment Pt presents with signs and symptoms consistent with mild right-sided vestibular loss. Pt relays subjective description that includes a start in July with five hours of intense, constant vertigo, which then faded into more of a sensation of general instability, worsened with lying in bed (constant in any position) or when turning her head quickly when standing. This history is strongly suggestive of Vestibular Neuritis, more likely than Labrynthitis due to no notable hearing loss. As would be expected, pt struggles with DVA and presents with positive right Thrust and Heave tests. Pt is likely experiencing worsened symptoms at night due to limited input from other sources (proprioceptive, visual) causing her to notice vestibular dysfunction more clearly. This also fits with results of her VNG, which, per Dr Steinberg' chart notes, showed right-sided vestibular loss. Pt should benefit from skilled vestibular therapy focusing on vestibular compensation, working on habituation and adaptation exercises. HEP started today, with VOR and X1 training. Physical Therapy Plan Frequency and Duration Frequency of Treatment 1-2x/week Plan of Care Start Date 02/02/23 Plan of Care End Date 04/04/23 Therapeutic Interventions Therapeutic Interventions Balance Training,Canalithic Repositioning,Coordination Training,Home Exercise Program ,Manual Therapy,Neuromuscular Re-education,Patient/Caregiver Education,Self-Care/Home Management,Therapeutic Activities,Therapeutic Exercises,Vestibular Rehabilitation Next Visit Focus/Plan Next Note Type Treatment Note Next Visit Plan Vestibular rehabilitation, Adaptation/habituation exercises Plan of Care Dates Plan of Care Start Date 02/02/23 Plan of Care End Date 04/04/23 Electronically Signed by: Charly Muir, PT 02/02/23 8810 If you are in agreement with this Plan of Care, please return a signed and dated copy. I have reviewed this Plan of Care and certify that the skilled therapy services above are required to meet the patient?s needs. Physician Signature Date Printed Name and Credentials Clinical Instructor Signature Printed Name and Credentials
--- NOTE | 2023-02-08 10:16 | PT.OTN ---
Current Diagnoses Vestibular neuronitis, right ear (02/08/23) Other disorders of vestibular function, unspecified ear (02/08/23) Unsteadiness on feet (02/08/23) Abnormal vestibular function study (02/08/23) Physical Therapy Treatment Note PT-OP-A Visit Information Start: 02/02/23 16:06 Freq: Status: Active Protocol: Document 02/08/23 09:30 DCW (Rec: 02/08/23 10:16 DCW [id number]) Out-Patient Physical Therapy Visit Information Visit Information Visit Type Treatment Note Visit Start Time 09:30 Visit Stop Time 10:00 Total Visit Minutes 30 Visit Number 2 Number of CHUTE BOSS Visits 0 Evaluation Information Evaluation Date 02/02/23 PT-OP-B Current Condition Start: 02/02/23 16:06 Freq: Status: Active Protocol: Document 02/02/23 13:30 DCW (Rec: 02/02/23 16:17 DCW [id number]) Current Condition History of Current Condition Onset Date ~7 month history Current Complaints Instability/rocking sensation History of Current Condition Pt is a 77 year old female complaining of a seven month history of a wavy, rocking sensation when lying in bed. Pt reports it is pretty much constant any time she is lying in bed. Additionally notes some decreased stability when turning her head in standing. Admits that it began in July, when she had a very unfortunate episode of a constant, high-speed vertigo lasting about five hours. 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 Pt denies recent hearing changes , diplopia, or dysarthria, although does note tinnitus. Pt does think her symptoms have improved somewhat since it began, but is not really sure. Pt reports symptoms are not waxing/waning in nature. PT-OP-C Subjective Start: 02/02/23 16:06 Freq: Status: Active Protocol: Document 02/08/23 09:30 DCW (Rec: 02/08/23 10:16 DCW [id number]) OP-PT Subjective Patient Comments Patient Comments I did the exercises the first three days, but then everything got worse, so I stopped them. PT-OP-O Vestibular Start: 02/02/23 16:06 Freq: Status: Active Protocol: Document 02/02/23 13:30 DCW (Rec: 02/02/23 16:17 [facility] [id number]) Vestibular Assessment Screening Tests Vestibular Artery Screen Negative Auditory Tests Garcia Test Within normal limits Rinne Test Negative Air Conduction Results Equal Visual Testing Smooth Pursuits Horizontal WNL Smooth Pursuits Vertical WNL Saccades Horizontal WNL Saccades Vertical WNL Heave Test Positive Right Thrust Head Positive Right DVA (Line Degradation) 5 Spontaneous Nystagmus Negative Positional Testing [place]-Hallpike Negative Left,Negative Right Rolling Test Negative Left,Negative Right Vestibular Function Tests Fukuda Test Negative Comments Vestibular Comments Tandem ambulation: Very unstable 4 steps PT-OP-Q Treatments Start: 02/02/23 16:06 Freq: Status: Active Protocol: Document 02/08/23 09:30 DCW (Rec: 02/08/23 10:16 [facility] [id number]) Gym Equipment Shuttle Balance Blue Details WBOS EO/EC Neuro Re-Education Treatment Balance Activities Tilt Board Details Lateral tilt /c weight shift Comments Added X1 viewing Dynamic Gait Details Hallway ambulation with head turns Comments Horizontal, Vertical, Diagonal Vestibular Rehabilitation Corrective Saccades Details Eyes, then head between two targets Distance From Target Arm's length Speed as tolerated Position Seated X2 Viewing Details Target and head moving in opposite directions Distance From Target Arm's length Speed as tolerated Position Seated PT-OP-T Assessment and Plan Start: 02/02/23 16:06 Freq: Status: Active Protocol: Document 02/08/23 09:30 DCW (Rec: 02/08/23 10:16 [facility] [id number]) Physical Therapy Assessment Impairments Impairments Balance,Coordination, Functional Activities, Functional Mobility,Sensation, Vestibular Goals Two Impairment Pt experiences sensation of rocking/waviness at all times when in bed Custodial Goal (LTG) Pt to report being asymptomatic throughout the night 60% of the time LTG Duration 04/04/23 One Impairment Pt does not have an appropriate home exercise program Short Term Goal (STG) Pt to be independent and compliant with an appropriate HEP STG Duration 03/04/23 Assessment Summary Assessment Shortened session due to pt's negative reaction to current HEP, want to ensure pt can return to baseline more quickly prior to taxing vestibular system for full 45 minute session. Tolerated treatment well today, minimal path deviation during gait with head turns, and was able to keep herself stable on Shuttle Balance even with eyes closed. Added X2 and corrective saccades to HEP. Physical Therapy Plan Frequency and Duration Frequency of Treatment 1-2x/week Plan of Care Start Date 02/02/23 Plan of Care End Date 04/04/23 Therapeutic Interventions Therapeutic Interventions Balance Training,Canalithic Repositioning,Coordination Training,Home Exercise Program ,Manual Therapy,Neuromuscular Re-education,Patient/Caregiver Education,Self-Care/Home Management,Therapeutic Activities,Therapeutic Exercises,Vestibular Rehabilitation Next Visit Focus/Plan Next Note Type Treatment Note Next Visit Plan Vestibular rehabilitation, Adaptation/habituation exercises
--- NOTE | 2023-02-15 16:22 | PT.OTN ---
Current Diagnoses Vestibular neuronitis, right ear (02/15/23) Other disorders of vestibular function, unspecified ear (02/15/23) Unsteadiness on feet (02/15/23) Abnormal vestibular function study (02/15/23) Physical Therapy Treatment Note PT-OP-A Visit Information Start: 02/02/23 16:06 Freq: Status: Active Protocol: Document 02/15/23 15:45 DCW (Rec: 02/15/23 16:21 DCW [id number]) Out-Patient Physical Therapy Visit Information Visit Information Visit Type Treatment Note Visit Start Time 15:45 Visit Stop Time 16:15 Total Visit Minutes 30 Visit Number 3 Number of MANAGER OF PMO Visits 0 Evaluation Information Evaluation Date 02/02/23 PT-OP-B Current Condition Start: 02/02/23 16:06 Freq: Status: Active Protocol: Document 02/02/23 13:30 DCW (Rec: 02/02/23 16:17 DCW [id number]) Current Condition History of Current Condition Onset Date ~7 month history Current Complaints Instability/rocking sensation History of Current Condition Pt is a 77 year old female complaining of a seven month history of a wavy, rocking sensation when lying in bed. Pt reports it is pretty much constant any time she is lying in bed. Additionally notes some decreased stability when turning her head in standing. Admits that it began in July, when she had a very unfortunate episode of a constant, high-speed vertigo lasting about five hours. 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 Pt denies recent hearing changes , diplopia, or dysarthria, although does note tinnitus. Pt does think her symptoms have improved somewhat since it began, but is not really sure. Pt reports symptoms are not waxing/waning in nature. PT-OP-C Subjective Start: 02/02/23 16:06 Freq: Status: Active Protocol: Document 02/15/23 15:45 DCW (Rec: 02/15/23 16:21 DCW [id number]) OP-PT Subjective Patient Comments Patient Comments I didn't do them [HEP] every day, but I did them most days, and they didn't make me worse . Does feel her symptoms are night are a little bit less. PT-OP-O Vestibular Start: 02/02/23 16:06 Freq: Status: Active Protocol: Document 02/02/23 13:30 DCW (Rec: 02/02/23 16:17 DCW [id number]) Vestibular Assessment Screening Tests Vestibular Artery Screen Negative Auditory Tests Garcia Test Within normal limits Rinne Test Negative Air Conduction Results Equal Visual Testing Smooth Pursuits Horizontal WNL Smooth Pursuits Vertical WNL Saccades Horizontal WNL Saccades Vertical WNL Heave Test Positive Right Thrust Head Positive Right DVA (Line Degradation) 5 Spontaneous Nystagmus Negative Positional Testing [place]-Hallpike Negative Left,Negative Right Rolling Test Negative Left,Negative Right Vestibular Function Tests Fukuda Test Negative Comments Vestibular Comments Tandem ambulation: Very unstable 4 steps PT-OP-Q Treatments Start: 02/02/23 16:06 Freq: Status: Active Protocol: Document 02/15/23 15:45 DCW (Rec: 02/15/23 16:21 DCW [id number]) Gym Equipment Shuttle Balance Red Details WBOS, Staggered Neuro Re-Education Treatment Balance Activities Dynamic Gait Details Hallway ambulation with head turns Comments Horizontal, Vertical Metronome 90 bpm Vestibular Rehabilitation Targets Details Signature /c laser Background [place] Print Distance From Target 5' Comments VOR with laser at 120 bpm X2 Viewing Details Target and head moving in opposite directions Distance From Target Arm's length Speed as tolerated Position NBOS X1 Viewing Details Static target with head turns Distance From Target Arm's length Speed as tolerated Position Seated VOR Retraining Details Head, eyes, and target moving together Distance From Target Arm's length Speed as tolerated Position Seated PT-OP-T Assessment and Plan Start: 02/02/23 16:06 Freq: Status: Active Protocol: Document 02/15/23 15:45 DCW (Rec: 02/15/23 16:21 DCW [id number]) Physical Therapy Assessment Impairments Impairments Balance,Coordination, Functional Activities, Functional Mobility,Sensation, Vestibular Goals Two Impairment Pt experiences sensation of rocking/waviness at all times when in bed Residential Goal (LTG) Pt to report being asymptomatic throughout the night 60% of the time LTG Duration 04/04/23 One Impairment Pt does not have an appropriate home exercise program Short Term Goal (STG) Pt to be independent and compliant with an appropriate HEP STG Duration 03/04/23 Assessment Summary Assessment Pt did very well today, did not have any increased symptoms with any vestibular challenges, tolerated all exercises. Ended session early per pt request so she could get home, as she was watching her young grandchildren. Physical Therapy Plan Frequency and Duration Frequency of Treatment 1-2x/week Plan of Care Start Date 02/02/23 Plan of Care End Date 04/04/23 Therapeutic Interventions Therapeutic Interventions Balance Training,Canalithic Repositioning,Coordination Training,Home Exercise Program ,Manual Therapy,Neuromuscular Re-education,Patient/Caregiver Education,Self-Care/Home Management,Therapeutic Activities,Therapeutic Exercises,Vestibular Rehabilitation Next Visit Focus/Plan Next Note Type Treatment Note Next Visit Plan Vestibular rehabilitation, Adaptation/habituation exercises
--- NOTE | 2023-02-27 15:24 | PT.OTN ---
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) Other disorders of vestibular function, unspecified ear (02/27/23) Unsteadiness on feet (02/27/23) Abnormal vestibular function study (02/27/23) Physical Therapy Treatment Note PT-OP-A Visit Information Start: 02/02/23 16:06 Freq: Status: Active Protocol: Document 02/27/23 14:33 AMB (Rec: 02/27/23 15:23 AMB [id number]) Out-Patient Physical Therapy Visit Information Visit Information Visit Type Treatment Note Visit Start Time 14:30 Visit Stop Time 15:15 Total Visit Minutes 45 Visit Number 4 Number of WEB DESIGN INTERN Visits 0 PT-OP-B Current Condition Start: 02/02/23 16:06 Freq: Status: Active Protocol: Document 02/02/23 13:30 DCW (Rec: 02/02/23 16:17 DCW [id number]) Current Condition History of Current Condition Onset Date ~7 month history Current Complaints Instability/rocking sensation History of Current Condition Pt is a 77 year old female complaining of a seven month history of a wavy, rocking sensation when lying in bed. Pt reports it is pretty much constant any time she is lying in bed. Additionally notes some decreased stability when turning her head in standing. Admits that it began in July, when she had a very unfortunate episode of a constant, high-speed vertigo lasting about five hours. 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 Pt denies recent hearing changes , diplopia, or dysarthria, although does note tinnitus. Pt does think her symptoms have improved somewhat since it began, but is not really sure. Pt reports symptoms are not waxing/waning in nature. PT-OP-C Subjective Start: 02/02/23 16:06 Freq: Status: Active Protocol: Document 02/27/23 14:33 AMB (Rec: 02/27/23 15:23 AMB [id number]) OP-PT Subjective Patient Comments Patient Comments Mild sx lately, but does notice it when going around the corner or getting into bed . PT-OP-O Vestibular Start: 02/02/23 16:06 Freq: Status: Active Protocol: Document 02/02/23 13:30 DCW (Rec: 02/02/23 16:17 DCW [id number]) Vestibular Assessment Screening Tests Vestibular Artery Screen Negative Auditory Tests Garcia Test Within normal limits Rinne Test Negative Air Conduction Results Equal Visual Testing Smooth Pursuits Horizontal WNL Smooth Pursuits Vertical WNL Saccades Horizontal WNL Saccades Vertical WNL Heave Test Positive Right Thrust Head Positive Right DVA (Line Degradation) 5 Spontaneous Nystagmus Negative Positional Testing [place]-Hallpike Negative Left,Negative Right Rolling Test Negative Left,Negative Right Vestibular Function Tests Fukuda Test Negative Comments Vestibular Comments Tandem ambulation: Very unstable 4 steps PT-OP-Q Treatments Start: 02/02/23 16:06 Freq: Status: Active Protocol: Document 02/27/23 14:33 AMB (Rec: 02/27/23 15:23 AMB [id number]) Gym Equipment Shuttle Balance Red Details WBOS, Staggered Reps/Duration 10 min Comments a/p and m/l Neuro Re-Education Treatment Balance Activities single leg stance Comments 3-5 sec Vestibular Rehabilitation walking with head turns Comments horizontal, vertical and diagonal 3 step and bow with HT Details horizontal head turn Comments in staggered stance X1 Viewing Details Static target with head turns Distance From Target Arm's length Speed as tolerated Position Standing PT-OP-T Assessment and Plan Start: 02/02/23 16:06 Freq: Status: Active Protocol: Document 02/27/23 14:33 AMB (Rec: 02/27/23 15:23 AMB [id number]) Physical Therapy Assessment Goals Two Impairment Pt experiences sensation of rocking/waviness at all times when in bed Concrete Curer Goal (LTG) Pt to report being asymptomatic throughout the night 60% of the time LTG Duration 04/04/23 One Impairment Pt does not have an appropriate home exercise program Short Term Goal (STG) Pt to be independent and compliant with an appropriate HEP STG Duration 03/04/23 Assessment Summary Assessment Pt having televisit with [facility] neurologist tomorrow. Did well with PT today, discussed pt may need to perform exercises at some level in the intermodal customer service. Physical Therapy Plan Frequency and Duration Frequency of Treatment 1-2x/week Plan of Care Start Date 02/02/23 Plan of Care End Date 04/04/23 Therapeutic Interventions Therapeutic Interventions Balance Training,Canalithic Repositioning,Coordination Training,Home Exercise Program ,Manual Therapy,Neuromuscular Re-education,Patient/Caregiver Education,Self-Care/Home Management,Therapeutic Activities,Therapeutic Exercises,Vestibular Rehabilitation Next Visit Focus/Plan Next Note Type Treatment Note Next Visit Plan Vestibular rehabilitation, Adaptation/habituation exercises
--- NOTE | 2023-03-08 11:46 | PT.OTN ---
Current Diagnoses Vestibular neuronitis, right ear (03/08/23) Other disorders of vestibular function, unspecified ear (03/08/23) Unsteadiness on feet (03/08/23) Abnormal vestibular function study (03/08/23) Physical Therapy Treatment Note PT-OP-A Visit Information Start: 02/02/23 16:06 Freq: Status: Active Protocol: Document 03/08/23 11:00 DCW (Rec: 03/08/23 11:46 DCW [id number]) Out-Patient Physical Therapy Visit Information Visit Information Visit Type Treatment Note Visit Start Time 11:00 Visit Stop Time 11:45 Total Visit Minutes 30 Visit Number 5 Number of PERFECT BIND MACHINE OPERATOR Visits 0 Evaluation Information Evaluation Date 02/02/23 PT-OP-B Current Condition Start: 02/02/23 16:06 Freq: Status: Active Protocol: Document 02/02/23 13:30 DCW (Rec: 02/02/23 16:17 DCW [id number]) Current Condition History of Current Condition Onset Date ~7 month history Current Complaints Instability/rocking sensation History of Current Condition Pt is a 77 year old female complaining of a seven month history of a wavy, rocking sensation when lying in bed. Pt reports it is pretty much constant any time she is lying in bed. Additionally notes some decreased stability when turning her head in standing. Admits that it began in July, when she had a very unfortunate episode of a constant, high-speed vertigo lasting about five hours. 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 Pt denies recent hearing changes , diplopia, or dysarthria, although does note tinnitus. Pt does think her symptoms have improved somewhat since it began, but is not really sure. Pt reports symptoms are not waxing/waning in nature. PT-OP-C Subjective Start: 02/02/23 16:06 Freq: Status: Active Protocol: Document 03/08/23 11:00 DCW (Rec: 03/08/23 11:46 DCW [id number]) OP-PT Subjective Patient Comments Patient Comments PT feels her symptoms have been a little better. PT-OP-O Vestibular Start: 02/02/23 16:06 Freq: Status: Active Protocol: Document 02/02/23 13:30 DCW (Rec: 02/02/23 16:17 [facility] [id number]) Vestibular Assessment Screening Tests Vestibular Artery Screen Negative Auditory Tests Garcia Test Within normal limits Rinne Test Negative Air Conduction Results Equal Visual Testing Smooth Pursuits Horizontal WNL Smooth Pursuits Vertical WNL Saccades Horizontal WNL Saccades Vertical WNL Heave Test Positive Right Thrust Head Positive Right DVA (Line Degradation) 5 Spontaneous Nystagmus Negative Positional Testing [place]-Hallpike Negative Left,Negative Right Rolling Test Negative Left,Negative Right Vestibular Function Tests Fukuda Test Negative Comments Vestibular Comments Tandem ambulation: Very unstable 4 steps PT-OP-Q Treatments Start: 02/02/23 16:06 Freq: Status: Active Protocol: Document 03/08/23 11:00 DCW (Rec: 03/08/23 11:46 [facility] [id number]) Gym Equipment Shuttle Balance Red Details WBOS (X1, EO/EC), Staggered Neuro Re-Education Treatment Balance Activities Hurdles Details Hurdles/Foam Comments Staggered, Tandem, Side- stepping single leg stance Comments 20-40 sec Dynamic Gait Details Hallway ambulation with head turns Comments Horizontal, Vertical, Diagonal Metronome 90 bpm Vestibular Rehabilitation 3 step and bow with HT Details horizontal head turn Comments in staggered stance, then tandem Targets Background [place] [employer] Distance From Target 5' Comments VOR with laser at 120 bpm, horizontal, vertical and diagonal PT-OP-T Assessment and Plan Start: 02/02/23 16:06 Freq: Status: Active Protocol: Document 03/08/23 11:00 DCW (Rec: 03/08/23 11:46 [facility] [id number]) Physical Therapy Assessment Impairments Impairments Balance,Coordination, Functional Activities, Functional Mobility,Sensation, Vestibular Goals Two Impairment Pt experiences sensation of rocking/waviness at all times when in bed Film Processing Utility Worker Goal (LTG) Pt to report being asymptomatic throughout the night 60% of the time LTG Duration 04/04/23 One Impairment Pt does not have an appropriate home exercise program Short Term Goal (STG) Pt to be independent and compliant with an appropriate HEP STG Duration 03/04/23 Assessment Summary Assessment Pt showing very good progress with most balance activities. Has been practicing SLS since last week, and improved her ability to hold it from 3-5 seconds to 20-40 seconds. Struggles most with compliant surfaces and head turns, but still much better than previously. Physical Therapy Plan Frequency and Duration Frequency of Treatment 1-2x/week Plan of Care Start Date 02/02/23 Plan of Care End Date 04/04/23 Therapeutic Interventions Therapeutic Interventions Balance Training,Canalithic Repositioning,Coordination Training,Home Exercise Program ,Manual Therapy,Neuromuscular Re-education,Patient/Caregiver Education,Self-Care/Home Management,Therapeutic Activities,Therapeutic Exercises,Vestibular Rehabilitation Next Visit Focus/Plan Next Note Type Treatment Note Next Visit Plan Vestibular rehabilitation, Adaptation/habituation exercises
--- NOTE | 2023-03-22 11:43 | PT.OTN ---
Current Diagnoses Vestibular neuronitis, right ear (03/22/23) Other disorders of vestibular function, unspecified ear (03/22/23) Unsteadiness on feet (03/22/23) Abnormal vestibular function study (03/22/23) Physical Therapy Treatment Note PT-OP-A Visit Information Start: 02/02/23 16:06 Freq: Status: Active Protocol: Document 03/22/23 11:00 DCW (Rec: 03/22/23 11:43 DCW [id number]) Out-Patient Physical Therapy Visit Information Visit Information Visit Type Treatment Note Visit Start Time 11:00 Visit Stop Time 11:45 Total Visit Minutes 45 Visit Number 6 Number of DITTO MACHINE OPERATOR Visits 0 Evaluation Information Evaluation Date 02/02/23 PT-OP-B Current Condition Start: 02/02/23 16:06 Freq: Status: Active Protocol: Document 02/02/23 13:30 DCW (Rec: 02/02/23 16:17 DCW [id number]) Current Condition History of Current Condition Onset Date ~7 month history Current Complaints Instability/rocking sensation History of Current Condition Pt is a 77 year old female complaining of a seven month history of a wavy, rocking sensation when lying in bed. Pt reports it is pretty much constant any time she is lying in bed. Additionally notes some decreased stability when turning her head in standing. Admits that it began in July, when she had a very unfortunate episode of a constant, high-speed vertigo lasting about five hours. 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 Pt denies recent hearing changes , diplopia, or dysarthria, although does note tinnitus. Pt does think her symptoms have improved somewhat since it began, but is not really sure. Pt reports symptoms are not waxing/waning in nature. PT-OP-C Subjective Start: 02/02/23 16:06 Freq: Status: Active Protocol: Document 03/22/23 11:00 DCW (Rec: 03/22/23 11:43 DCW [id number]) OP-PT Subjective Patient Comments Patient Comments I feel a little bit more wobbly today. PT-OP-O Vestibular Start: 02/02/23 16:06 Freq: Status: Active Protocol: Document 02/02/23 13:30 DCW (Rec: 02/02/23 16:17 [facility] [id number]) Vestibular Assessment Screening Tests Vestibular Artery Screen Negative Auditory Tests Garcia Test Within normal limits Rinne Test Negative Air Conduction Results Equal Visual Testing Smooth Pursuits Horizontal WNL Smooth Pursuits Vertical WNL Saccades Horizontal WNL Saccades Vertical WNL Heave Test Positive Right Thrust Head Positive Right DVA (Line Degradation) 5 Spontaneous Nystagmus Negative Positional Testing [place]-Hallpike Negative Left,Negative Right Rolling Test Negative Left,Negative Right Vestibular Function Tests Fukuda Test Negative Comments Vestibular Comments Tandem ambulation: Very unstable 4 steps PT-OP-Q Treatments Start: 02/02/23 16:06 Freq: Status: Active Protocol: Document 03/22/23 11:00 [facility] (Rec: 03/22/23 11:43 [facility] [id number]) Gym Equipment Shuttle Balance Red Details WBOS (X1, EO/EC), Staggered Neuro Re-Education Treatment Balance Activities BOSU Stance Details EO/EC Surface Blue BOSU Tandem Details Tandem Ambulation Comments Fwd, Bkwd Hurdles Details Hurdles/Foam Comments Staggered, Tandem, Side- stepping Dynamic Gait Details Hallway ambulation with head turns Comments Horizontal, Vertical, Diagonal Metronome 100->110 bpm PT-OP-T Assessment and Plan Start: 02/02/23 16:06 Freq: Status: Active Protocol: Document 03/22/23 11:00 DCW (Rec: 03/22/23 11:43 [facility] [id number]) Physical Therapy Assessment Impairments Impairments Balance,Coordination, Functional Activities, Functional Mobility,Sensation, Vestibular Goals Two Impairment Pt experiences sensation of rocking/waviness at all times when in bed Timekeeper Goal (LTG) Pt to report being asymptomatic throughout the night 60% of the time LTG Duration 04/04/23 One Impairment Pt does not have an appropriate home exercise program Short Term Goal (STG) Pt to be independent and compliant with an appropriate HEP STG Duration 03/04/23 Assessment Summary Assessment Pt doing well with HEP, continues to show improved tolerance to vestibular challenges. Physical Therapy Plan Frequency and Duration Frequency of Treatment 1-2x/week Plan of Care Start Date 02/02/23 Plan of Care End Date 04/04/23 Therapeutic Interventions Therapeutic Interventions Balance Training,Canalithic Repositioning,Coordination Training,Home Exercise Program ,Manual Therapy,Neuromuscular Re-education,Patient/Caregiver Education,Self-Care/Home Management,Therapeutic Activities,Therapeutic Exercises,Vestibular Rehabilitation Next Visit Focus/Plan Next Note Type Treatment Note Next Visit Plan Vestibular rehabilitation, Adaptation/habituation exercises
--- NOTE | 2023-03-27 11:43 | PT.OTN ---
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) Unsteadiness on feet (03/27/23) Abnormal vestibular function study (03/27/23) Physical Therapy Treatment Note PT-OP-A Visit Information Start: 02/02/23 16:06 Freq: Status: Active Protocol: Document 03/27/23 11:00 DCW (Rec: 03/27/23 11:43 DCW [id number]) Out-Patient Physical Therapy Visit Information Visit Information Visit Type Treatment Note Visit Start Time 11:00 Visit Stop Time 11:45 Total Visit Minutes 45 Visit Number 7 Number of CLINICAL DIETITIAN Visits 0 Evaluation Information Evaluation Date 02/02/23 PT-OP-B Current Condition Start: 02/02/23 16:06 Freq: Status: Active Protocol: Document 02/02/23 13:30 DCW (Rec: 02/02/23 16:17 DCW [id number]) Current Condition History of Current Condition Onset Date ~7 month history Current Complaints Instability/rocking sensation History of Current Condition Pt is a 77 year old female complaining of a seven month history of a wavy, rocking sensation when lying in bed. Pt reports it is pretty much constant any time she is lying in bed. Additionally notes some decreased stability when turning her head in standing. Admits that it began in July, when she had a very unfortunate episode of a constant, high-speed vertigo lasting about five hours. 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 Pt denies recent hearing changes , diplopia, or dysarthria, although does note tinnitus. Pt does think her symptoms have improved somewhat since it began, but is not really sure. Pt reports symptoms are not waxing/waning in nature. PT-OP-C Subjective Start: 02/02/23 16:06 Freq: Status: Active Protocol: Document 03/27/23 11:00 DCW (Rec: 03/27/23 11:43 DCW [id number]) OP-PT Subjective Patient Comments Patient Comments Pt has been undergoing a lot of family stress recently, and notes she has been much more symptomatic. PT-OP-O Vestibular Start: 02/02/23 16:06 Freq: Status: Active Protocol: Document 02/02/23 13:30 DCW (Rec: 02/02/23 16:17 DCW [id number]) Vestibular Assessment Screening Tests Vestibular Artery Screen Negative Auditory Tests Garcia Test Within normal limits Rinne Test Negative Air Conduction Results Equal Visual Testing Smooth Pursuits Horizontal WNL Smooth Pursuits Vertical WNL Saccades Horizontal WNL Saccades Vertical WNL Heave Test Positive Right Thrust Head Positive Right DVA (Line Degradation) 5 Spontaneous Nystagmus Negative Positional Testing [place]-Hallpike Negative Left,Negative Right Rolling Test Negative Left,Negative Right Vestibular Function Tests Fukuda Test Negative Comments Vestibular Comments Tandem ambulation: Very unstable 4 steps PT-OP-Q Treatments Start: 02/02/23 16:06 Freq: Status: Active Protocol: Document 03/27/23 11:00 [facility] (Rec: 03/27/23 11:43 [facility] [id number]) Gym Equipment Shuttle Balance Red Details WBOS (X1, EO/EC), Staggered Neuro Re-Education Treatment Balance Activities Tandem Details Tandem Ambulation Comments Fwd, Bkwd Hurdles Details Hurdles/Foam Comments Staggered, Tandem, Side- stepping single leg stance Details SLS Comments 20-40 sec Dynamic Gait Details Hallway ambulation with head turns Comments Horizontal, Vertical, Diagonal Metronome 110 bpm Vestibular Rehabilitation 3 step and bow with HT Details horizontal head turn Comments in staggered stance, then tandem PT-OP-T Assessment and Plan Start: 02/02/23 16:06 Freq: Status: Active Protocol: Document 03/27/23 11:00 DC (Rec: 03/27/23 11:43 [facility] [id number]) Physical Therapy Assessment Impairments Impairments Balance,Coordination, Functional Activities, Functional Mobility,Sensation, Vestibular Goals Two Impairment Pt experiences sensation of rocking/waviness at all times when in bed Fpc Goal (LTG) Pt to report being asymptomatic throughout the night 60% of the time LTG Duration 04/04/23 One Impairment Pt does not have an appropriate home exercise program Short Term Goal (STG) Pt to be independent and compliant with an appropriate HEP STG Duration 03/04/23 Assessment Summary Assessment Pt continues to show good progress with all balance and vestibular challenges, however due to increased stress and poor sleeping recently, is reporting worsening symptoms during the night. Physical Therapy Plan Frequency and Duration Frequency of Treatment 1-2x/week Plan of Care Start Date 02/02/23 Plan of Care End Date 04/04/23 Therapeutic Interventions Therapeutic Interventions Balance Training,Canalithic Repositioning,Coordination Training,Home Exercise Program ,Manual Therapy,Neuromuscular Re-education,Patient/Caregiver Education,Self-Care/Home Management,Therapeutic Activities,Therapeutic Exercises,Vestibular Rehabilitation Next Visit Focus/Plan Next Note Type Treatment Note Next Visit Plan Vestibular rehabilitation, Adaptation/habituation exercises
--- NOTE | 2023-04-04 14:33 | PT-OP ANOTE ---
Pt arrived for her 04/04/23 1015 appointment at 1045, thinking her start time was 1100.
--- NOTE | 2023-04-12 13:26 | PT.OTN ---
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) Unsteadiness on feet (04/12/23) Abnormal vestibular function study (04/12/23) Physical Therapy Treatment Note PT-OP-A Visit Information Start: 02/02/23 16:06 Freq: Status: Active Protocol: Document 04/12/23 12:45 DCW (Rec: 04/12/23 13:26 DCW [id number]) Out-Patient Physical Therapy Visit Information Visit Information Visit Type Progress Note Visit Start Time 12:45 Visit Stop Time 13:30 Total Visit Minutes 45 Visit Number 8 Number of FOURTH OFFICER Visits 0 Evaluation Information Evaluation Date 02/02/23 PT-OP-B Current Condition Start: 02/02/23 16:06 Freq: Status: Active Protocol: Document 02/02/23 13:30 DCW (Rec: 02/02/23 16:17 DCW [id number]) Current Condition History of Current Condition Onset Date ~7 month history Current Complaints Instability/rocking sensation History of Current Condition Pt is a 77 year old female complaining of a seven month history of a wavy, rocking sensation when lying in bed. Pt reports it is pretty much constant any time she is lying in bed. Additionally notes some decreased stability when turning her head in standing. Admits that it began in July, when she had a very unfortunate episode of a constant, high-speed vertigo lasting about five hours. 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 Pt denies recent hearing changes , diplopia, or dysarthria, although does note tinnitus. Pt does think her symptoms have improved somewhat since it began, but is not really sure. Pt reports symptoms are not waxing/waning in nature. PT-OP-C Subjective Start: 02/02/23 16:06 Freq: Status: Active Protocol: Document 04/12/23 12:45 DCW (Rec: 04/12/23 13:26 DCW [id number]) OP-PT Subjective Patient Comments Patient Comments Pt reports that the only thing in my life that is going right now is that the vertigo is feeling better. PT-OP-O Vestibular Start: 02/02/23 16:06 Freq: Status: Active Protocol: Document 04/12/23 12:45 DCW (Rec: 04/12/23 13:26 DCW [id number]) Vestibular Assessment Visual Testing DVA (Line Degradation) 4 Comments Vestibular Comments Tandem ambulation: 35+ steps PT-OP-Q Treatments Start: 02/02/23 16:06 Freq: Status: Active Protocol: Document 04/12/23 12:45 DCW (Rec: 04/12/23 13:26 [facility] [id number]) Gym Equipment Shuttle Balance Red Details WBOS (X1, EO/EC), Staggered, Lateral weight shift Neuro Re-Education Treatment Balance Activities BOSU Stance Details EO/EC Surface Blue BOSU Tandem Details Tandem Ambulation Comments Fwd Dynamic Gait Details Hallway ambulation with head turns Comments Horizontal, Vertical, Diagonal Metronome 110 bpm Vestibular Rehabilitation 3 step and bow with HT Details horizontal head turn Comments in staggered stance, then tandem PT-OP-T Assessment and Plan Start: 02/02/23 16:06 Freq: Status: Active Protocol: Document 04/12/23 12:45 DCW (Rec: 04/12/23 13:26 [facility] [id number]) Physical Therapy Assessment Impairments Impairments Balance,Coordination, Functional Activities, Functional Mobility,Sensation, Vestibular Goals Two Impairment Pt experiences sensation of rocking/waviness at all times when in bed Shelter Goal (LTG) Pt to report being asymptomatic throughout the night 60% of the time LTG Duration 06/12/23 - improving One Impairment Pt does not have an appropriate home exercise program Short Term Goal (STG) Pt to be independent and compliant with an appropriate HEP STG Duration Met Progress Towards Goals Progress Towards Goals Progressing Toward Goals Assessment Summary Assessment Pt continues to show good progress with all balance and vestibular challenges, however due to increased stress and poor sleeping recently, is reporting worsening symptoms during the night. Physical Therapy Plan Frequency and Duration Frequency of Treatment Every 1-2 weeks Plan of Care Start Date 04/12/23 Plan of Care End Date 06/12/23 Therapeutic Interventions Therapeutic Interventions Balance Training,Canalithic Repositioning,Coordination Training,Home Exercise Program ,Manual Therapy,Neuromuscular Re-education,Patient/Caregiver Education,Self-Care/Home Management,Therapeutic Activities,Therapeutic Exercises,Vestibular Rehabilitation Next Visit Focus/Plan Next Note Type Treatment Note Next Visit Plan Vestibular rehabilitation, Adaptation/habituation exercises
--- NOTE | 2023-04-12 13:29 | PT.OTN ---
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) Unsteadiness on feet (04/12/23) Abnormal vestibular function study (04/12/23) Physical Therapy Treatment Note PT-OP-A Visit Information Start: 02/02/23 16:06 Freq: Status: Active Protocol: Document 04/12/23 12:45 DCW (Rec: 04/12/23 13:26 DCW [id number]) Out-Patient Physical Therapy Visit Information Visit Information Visit Type Progress Note Visit Start Time 12:45 Visit Stop Time 13:30 Total Visit Minutes 45 Visit Number 8 Number of CONCRETE BATCH PLANT OPERATOR Visits 0 Evaluation Information Evaluation Date 02/02/23 PT-OP-B Current Condition Start: 02/02/23 16:06 Freq: Status: Active Protocol: Document 02/02/23 13:30 DCW (Rec: 02/02/23 16:17 DCW [id number]) Current Condition History of Current Condition Onset Date ~7 month history Current Complaints Instability/rocking sensation History of Current Condition Pt is a 77 year old female complaining of a seven month history of a wavy, rocking sensation when lying in bed. Pt reports it is pretty much constant any time she is lying in bed. Additionally notes some decreased stability when turning her head in standing. Admits that it began in July, when she had a very unfortunate episode of a constant, high-speed vertigo lasting about five hours. 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 Pt denies recent hearing changes , diplopia, or dysarthria, although does note tinnitus. Pt does think her symptoms have improved somewhat since it began, but is not really sure. Pt reports symptoms are not waxing/waning in nature. PT-OP-C Subjective Start: 02/02/23 16:06 Freq: Status: Active Protocol: Document 04/12/23 12:45 DCW (Rec: 04/12/23 13:26 DCW [id number]) OP-PT Subjective Patient Comments Patient Comments Pt reports that the only thing in my life that is going right now is that the vertigo is feeling better. PT-OP-O Vestibular Start: 02/02/23 16:06 Freq: Status: Active Protocol: Document 04/12/23 12:45 DCW (Rec: 04/12/23 13:26 DCW [id number]) Vestibular Assessment Visual Testing DVA (Line Degradation) 4 Comments Vestibular Comments Tandem ambulation: 35+ steps PT-OP-Q Treatments Start: 02/02/23 16:06 Freq: Status: Active Protocol: Document 04/12/23 12:45 DCW (Rec: 04/12/23 13:26 [facility] [id number]) Gym Equipment Shuttle Balance Red Details WBOS (X1, EO/EC), Staggered, Lateral weight shift Neuro Re-Education Treatment Balance Activities BOSU Stance Details EO/EC Surface Blue BOSU Tandem Details Tandem Ambulation Comments Fwd Dynamic Gait Details Hallway ambulation with head turns Comments Horizontal, Vertical, Diagonal Metronome 110 bpm Vestibular Rehabilitation 3 step and bow with HT Details horizontal head turn Comments in staggered stance, then tandem PT-OP-T Assessment and Plan Start: 02/02/23 16:06 Freq: Status: Active Protocol: Document 04/12/23 12:45 DCW (Rec: 04/12/23 13:26 [facility] [id number]) Physical Therapy Assessment Impairments Impairments Balance,Coordination, Functional Activities, Functional Mobility,Sensation, Vestibular Goals Two Impairment Pt experiences sensation of rocking/waviness at all times when in bed Jail Goal (LTG) Pt to report being asymptomatic throughout the night 60% of the time LTG Duration 06/12/23 - improving One Impairment Pt does not have an appropriate home exercise program Short Term Goal (STG) Pt to be independent and compliant with an appropriate HEP STG Duration Met Progress Towards Goals Progress Towards Goals Progressing Toward Goals Assessment Summary Assessment Pt showing substantial progress today in all areas, was able to perform ambulation with head turns and tandem ambulation with no LOB. Subjective complaints have improved dramatically. Following discussion between therapist and patient, agreeable to decrease frequency to one visit every 1 -2 weeks to ensure pt continue to progress with less frequent vestibular rehab, with plan for eventual discharge to independent [facility]. Physical Therapy Plan Frequency and Duration Frequency of Treatment Every 1-2 weeks Plan of Care Start Date 04/12/23 Plan of Care End Date 06/12/23 Therapeutic Interventions Therapeutic Interventions Balance Training,Canalithic Repositioning,Coordination Training,Home Exercise Program ,Manual Therapy,Neuromuscular Re-education,Patient/Caregiver Education,Self-Care/Home Management,Therapeutic Activities,Therapeutic Exercises,Vestibular Rehabilitation Next Visit Focus/Plan Next Note Type Treatment Note Next Visit Plan Vestibular rehabilitation, Adaptation/habituation exercises
--- NOTE | 2023-04-12 13:30 | PT.OPPOC ---
Physical, Occupational & Speech Therapy At 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 Rony Steinberg MD Attending Provider Physician Referring Provider Specialty: Ear, Nose, Throat Address: [address] [place] [address], [id number] Email: [email or web address] Plan Of Care PT-OP-T Assessment and Plan Start: 02/02/23 16:06 Freq: Status: Active Protocol: Document 04/12/23 12:45 DCW (Rec: 04/12/23 13:26 DCW [id number]) Physical Therapy Assessment Impairments Impairments Balance,Coordination, Functional Activities, Functional Mobility,Sensation, Vestibular Goals Two Impairment Pt experiences sensation of rocking/waviness at all times when in bed Ncr Operator Goal (LTG) Pt to report being asymptomatic throughout the night 60% of the time LTG Duration 06/12/23 - improving One Impairment Pt does not have an appropriate home exercise program Short Term Goal (STG) Pt to be independent and compliant with an appropriate HEP STG Duration Met Progress Towards Goals Progress Towards Goals Progressing Toward Goals Assessment Summary Assessment Pt showing substantial progress today in all areas, was able to perform ambulation with head turns and tandem ambulation with no LOB. Subjective complaints have improved dramatically. Following discussion between therapist and patient, agreeable to decrease frequency to one visit every 1 -2 weeks to ensure pt continue to progress with less frequent vestibular rehab, with plan for eventual discharge to independent HEP. Physical Therapy Plan Frequency and Duration Frequency of Treatment Every 1-2 weeks Plan of Care Start Date 04/12/23 Plan of Care End Date 06/12/23 Therapeutic Interventions Therapeutic Interventions Balance Training,Canalithic Repositioning,Coordination Training,Home Exercise Program ,Manual Therapy,Neuromuscular Re-education,Patient/Caregiver Education,Self-Care/Home Management,Therapeutic Activities,Therapeutic Exercises,Vestibular Rehabilitation Next Visit Focus/Plan Next Note Type Treatment Note Next Visit Plan Vestibular rehabilitation, Adaptation/habituation exercises Plan of Care Dates Plan of Care Start Date 04/12/23 Plan of Care End Date 06/12/23 Electronically Signed by: Charly Muir, PT 04/12/23 1220 If you are in agreement with this Plan of Care, please return a signed and dated copy. I have reviewed this Plan of Care and certify that the skilled therapy services above are required to meet the patient?s needs. Physician Signature Date Printed Name and Credentials Clinical Instructor Signature Printed Name and Credentials
--- NOTE | 2023-04-19 11:47 | PT.OTN ---
Current Diagnoses Vestibular neuronitis, right ear (04/19/23) Unsteadiness on feet (04/19/23) Abnormal vestibular function study (04/19/23) Physical Therapy Treatment Note PT-OP-A Visit Information Start: 02/02/23 16:06 Freq: Status: Active Protocol: Document 04/19/23 11:00 DCW (Rec: 04/19/23 11:47 DCW [id number]) Out-Patient Physical Therapy Visit Information Visit Information Visit Type Treatment Note Visit Start Time 11:00 Visit Stop Time 11:45 Total Visit Minutes 45 Visit Number 9 Number of TELEVISION RECEIVER ANALYZER Visits 0 Evaluation Information Evaluation Date 02/02/23 PT-OP-B Current Condition Start: 02/02/23 16:06 Freq: Status: Active Protocol: Document 02/02/23 13:30 DCW (Rec: 02/02/23 16:17 DCW [id number]) Current Condition History of Current Condition Onset Date ~7 month history Current Complaints Instability/rocking sensation History of Current Condition Pt is a 77 year old female complaining of a seven month history of a wavy, rocking sensation when lying in bed. Pt reports it is pretty much constant any time she is lying in bed. Additionally notes some decreased stability when turning her head in standing. Admits that it began in July, when she had a very unfortunate episode of a constant, high-speed vertigo lasting about five hours. 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 Pt denies recent hearing changes , diplopia, or dysarthria, although does note tinnitus. Pt does think her symptoms have improved somewhat since it began, but is not really sure. Pt reports symptoms are not waxing/waning in nature. PT-OP-C Subjective Start: 02/02/23 16:06 Freq: Status: Active Protocol: Document 04/19/23 11:00 DCW (Rec: 04/19/23 11:47 DCW [id number]) OP-PT Subjective Patient Comments Patient Comments Vertigo-martin, things are going well. PT-OP-O Vestibular Start: 02/02/23 16:06 Freq: Status: Active Protocol: Document 04/12/23 12:45 DCW (Rec: 04/12/23 13:26 DCW [id number]) Vestibular Assessment Visual Testing DVA (Line Degradation) 4 Comments Vestibular Comments Tandem ambulation: 35+ steps PT-OP-Q Treatments Start: 02/02/23 16:06 Freq: Status: Active Protocol: Document 04/19/23 11:00 DCW (Rec: 04/19/23 11:47 DCW [id number]) Gym Equipment Shuttle Balance Red Details WBOS (X1, EO/EC), Staggered, Lateral weight shift Neuro Re-Education Treatment Balance Activities Ball/Cone transfers Details Ball/cone transfers Comments 10 cones, 5 balls BOSU Stance Details EO/EC, SLS Surface Blue BOSU Tandem Details Tandem Ambulation Comments Fwd, Bkwd Hurdles Details Hurdles/Foam Comments Over uneven blue pad obstacle course Dynamic Gait Details Hallway ambulation with head turns Comments Horizontal, Vertical, Diagonal Metronome 110 bpm PT-OP-T Assessment and Plan Start: 02/02/23 16:06 Freq: Status: Active Protocol: Document 04/19/23 11:00 DCW (Rec: 04/19/23 11:47 DCW [id number]) Physical Therapy Assessment Impairments Impairments Balance,Coordination, Functional Activities, Functional Mobility,Sensation, Vestibular Goals Two Impairment Pt experiences sensation of rocking/waviness at all times when in bed Fci Goal (LTG) Pt to report being asymptomatic throughout the night 60% of the time LTG Duration 06/12/23 - improving One Impairment Pt does not have an appropriate home exercise program Short Term Goal (STG) Pt to be independent and compliant with an appropriate HEP STG Duration Met Progress Towards Goals Progress Towards Goals Progressing Toward Goals Assessment Summary Assessment Increased difficulty with nearly all activities today, good overall response from pt, tolerated very well. No noticeable loss of balance or vertiginous symptoms with head movements. Due to scheduling difficulties and pt's upcoming trip, slight break between today and next visit, will do well going forward to determine if pt can continue progress with break from PT. Physical Therapy Plan Frequency and Duration Frequency of Treatment Every 1-2 weeks Plan of Care Start Date 04/12/23 Plan of Care End Date 06/12/23 Therapeutic Interventions Therapeutic Interventions Balance Training,Canalithic Repositioning,Coordination Training,Home Exercise Program ,Manual Therapy,Neuromuscular Re-education,Patient/Caregiver Education,Self-Care/Home Management,Therapeutic Activities,Therapeutic Exercises,Vestibular Rehabilitation Next Visit Focus/Plan Next Note Type Treatment Note Next Visit Plan Vestibular rehabilitation, Adaptation/habituation exercises
--- NOTE | 2023-05-16 11:45 | PT.OTN ---
Current Diagnoses Vestibular neuronitis, right ear (05/16/23) Unsteadiness on feet (05/16/23) Abnormal vestibular function study (05/16/23) Physical Therapy Treatment Note PT-OP-A Visit Information Start: 02/02/23 16:06 Freq: Status: Active Protocol: Document 05/16/23 11:04 DCW (Rec: 05/16/23 11:45 DCW [id number]) Out-Patient Physical Therapy Visit Information Visit Information Visit Type Treatment Note Visit Start Time 11:04 Visit Stop Time 11:45 Total Visit Minutes 41 Visit Number 10 Number of TANK WAGON DRIVER Visits 0 Evaluation Information Evaluation Date 02/02/23 PT-OP-B Current Condition Start: 02/02/23 16:06 Freq: Status: Active Protocol: Document 02/02/23 13:30 DCW (Rec: 02/02/23 16:17 DCW [id number]) Current Condition History of Current Condition Onset Date ~7 month history Current Complaints Instability/rocking sensation History of Current Condition Pt is a 77 year old female complaining of a seven month history of a wavy, rocking sensation when lying in bed. Pt reports it is pretty much constant any time she is lying in bed. Additionally notes some decreased stability when turning her head in standing. Admits that it began in July, when she had a very unfortunate episode of a constant, high-speed vertigo lasting about five hours. 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 Pt denies recent hearing changes , diplopia, or dysarthria, although does note tinnitus. Pt does think her symptoms have improved somewhat since it began, but is not really sure. Pt reports symptoms are not waxing/waning in nature. PT-OP-C Subjective Start: 02/02/23 16:06 Freq: Status: Active Protocol: Document 05/16/23 11:04 DCW (Rec: 05/16/23 11:45 DCW [id number]) OP-PT Subjective Patient Comments Patient Comments Symptoms are still present, but much less frequent and go away much more quickly. Has not been compliant with HEP due to very stressful family health issues. PT-OP-O Vestibular Start: 02/02/23 16:06 Freq: Status: Active Protocol: Document 04/12/23 12:45 DCW (Rec: 04/12/23 13:26 DCW [id number]) Vestibular Assessment Visual Testing DVA (Line Degradation) 4 Comments Vestibular Comments Tandem ambulation: 35+ steps PT-OP-Q Treatments Start: 02/02/23 16:06 Freq: Status: Active Protocol: Document 05/16/23 11:04 DCW (Rec: 05/16/23 11:45 [facility] [id number]) Gym Equipment Shuttle Balance Red Details WBOS (X1, EO/EC), Staggered, Lateral weight shift Neuro Re-Education Treatment Balance Activities BOSU Stance Details EO/EC, SLS Surface Blue BOSU Tandem Details Tandem Ambulation Comments Fwd, Bkwd Hurdles Details Hurdles/Foam Comments Over uneven blue pad obstacle course Dynamic Gait Details Hallway ambulation with head turns Comments Horizontal, Vertical, Diagonal Metronome 110 bpm PT-OP-T Assessment and Plan Start: 02/02/23 16:06 Freq: Status: Active Protocol: Document 05/16/23 11:04 DCW (Rec: 05/16/23 11:45 [facility] [id number]) Physical Therapy Assessment Impairments Impairments Balance,Coordination, Functional Activities, Functional Mobility,Sensation, Vestibular Goals Two Impairment Pt experiences sensation of rocking/waviness at all times when in bed Fci Goal (LTG) Pt to report being asymptomatic throughout the night 60% of the time LTG Duration 06/12/23 - improving One Impairment Pt does not have an appropriate home exercise program Short Term Goal (STG) Pt to be independent and compliant with an appropriate HEP STG Duration Met Progress Towards Goals Progress Towards Goals Progressing Toward Goals Assessment Summary Assessment Pt's subjective complaints of vertigo when lying in bed have significantly improved, still occur occasionally, worsened by recent high stress levels. Physical Therapy Plan Frequency and Duration Frequency of Treatment Every 1-2 weeks Plan of Care Start Date 04/12/23 Plan of Care End Date 06/12/23 Therapeutic Interventions Therapeutic Interventions Balance Training,Canalithic Repositioning,Coordination Training,Home Exercise Program ,Manual Therapy,Neuromuscular Re-education,Patient/Caregiver Education,Self-Care/Home Management,Therapeutic Activities,Therapeutic Exercises,Vestibular Rehabilitation Next Visit Focus/Plan Next Note Type Treatment Note Next Visit Plan Vestibular rehabilitation, Adaptation/habituation exercises
--- NOTE | 2023-05-30 11:01 | PT.OTN ---
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) Unsteadiness on feet (05/30/23) Abnormal vestibular function study (05/30/23) Physical Therapy Treatment Note PT-OP-A Visit Information Start: 02/02/23 16:06 Freq: Status: Active Protocol: Document 05/30/23 10:15 DCW (Rec: 05/30/23 11:01 DCW [id number]) Out-Patient Physical Therapy Visit Information Visit Information Visit Type Treatment Note Visit Start Time 10:15 Visit Stop Time 11:00 Total Visit Minutes 45 Visit Number 11 Number of LANGUAGE SPECIALIST Visits 0 Evaluation Information Evaluation Date 02/02/23 PT-OP-B Current Condition Start: 02/02/23 16:06 Freq: Status: Active Protocol: Document 02/02/23 13:30 DCW (Rec: 02/02/23 16:17 DCW [id number]) Current Condition History of Current Condition Onset Date ~7 month history Current Complaints Instability/rocking sensation History of Current Condition Pt is a 77 year old female complaining of a seven month history of a wavy, rocking sensation when lying in bed. Pt reports it is pretty much constant any time she is lying in bed. Additionally notes some decreased stability when turning her head in standing. Admits that it began in July, when she had a very unfortunate episode of a constant, high-speed vertigo lasting about five hours. 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 Pt denies recent hearing changes , diplopia, or dysarthria, although does note tinnitus. Pt does think her symptoms have improved somewhat since it began, but is not really sure. Pt reports symptoms are not waxing/waning in nature. PT-OP-C Subjective Start: 02/02/23 16:06 Freq: Status: Active Protocol: Document 05/30/23 10:15 DCW (Rec: 05/30/23 11:01 DCW [id number]) OP-PT Subjective Patient Comments Patient Comments The night before last, pt had the worst vertigo I've even experienced. Symptoms were the same as usual, just much more severe and longer lasting . PT-OP-O Vestibular Start: 02/02/23 16:06 Freq: Status: Active Protocol: Document 04/12/23 12:45 DCW (Rec: 04/12/23 13:26 DCW [id number]) Vestibular Assessment Visual Testing DVA (Line Degradation) 4 Comments Vestibular Comments Tandem ambulation: 35+ steps PT-OP-Q Treatments Start: 02/02/23 16:06 Freq: Status: Active Protocol: Document 05/30/23 10:15 DCW (Rec: 05/30/23 11:01 [facility] [id number]) Gym Equipment Shuttle Balance Red Details WBOS (X1, EO/EC), Staggered, Lateral weight shift Neuro Re-Education Treatment Balance Activities Tandem Details Tandem Ambulation Comments Fwd, Bkwd, bow /c head turns PT-OP-T Assessment and Plan Start: 02/02/23 16:06 Freq: Status: Active Protocol: Document 05/30/23 10:15 DCW (Rec: 05/30/23 11:01 [facility] [id number]) Physical Therapy Assessment Impairments Impairments Balance,Coordination, Functional Activities, Functional Mobility,Sensation, Vestibular Goals Two Impairment Pt experiences sensation of rocking/waviness at all times when in bed Lead Engineer Goal (LTG) Pt to report being asymptomatic throughout the night 60% of the time LTG Duration 06/12/23 - improving One Impairment Pt does not have an appropriate home exercise program Short Term Goal (STG) Pt to be independent and compliant with an appropriate HEP STG Duration Met Progress Towards Goals Progress Towards Goals Progressing Toward Goals Assessment Summary Assessment Performed positional testing, smooth pursuit, saccades, and head thrust/heave testing due to dramatic increase in pt symptoms. All continue to be negative. Did demonstrate increased difficulty with all PT activities today, unclear what caused set-back, although could very easily be pt's recent family-related stress Physical Therapy Plan Frequency and Duration Frequency of Treatment Every 1-2 weeks Plan of Care Start Date 04/12/23 Plan of Care End Date 06/12/23 Therapeutic Interventions Therapeutic Interventions Balance Training,Canalithic Repositioning,Coordination Training,Home Exercise Program ,Manual Therapy,Neuromuscular Re-education,Patient/Caregiver Education,Self-Care/Home Management,Therapeutic Activities,Therapeutic Exercises,Vestibular Rehabilitation Next Visit Focus/Plan Next Note Type Treatment Note Next Visit Plan Vestibular rehabilitation, Adaptation/habituation exercises
--- NOTE | 2023-06-13 11:00 | PT.OTN ---
Current Diagnoses Vestibular neuronitis, right ear (06/13/23) Unsteadiness on feet (06/13/23) Abnormal vestibular function study (06/13/23) Physical Therapy Treatment Note PT-OP-A Visit Information Start: 02/02/23 16:06 Freq: Status: Active Protocol: Document 06/13/23 10:15 DCW (Rec: 06/13/23 11:00 DCW [id number]) Out-Patient Physical Therapy Visit Information Visit Information Visit Type Progress Note Visit Start Time 10:15 Visit Stop Time 11:00 Total Visit Minutes 45 Visit Number 12 Number of STAFF ANESTHESIOLOGIST Visits 0 Evaluation Information Evaluation Date 02/02/23 PT-OP-B Current Condition Start: 02/02/23 16:06 Freq: Status: Active Protocol: Document 02/02/23 13:30 DCW (Rec: 02/02/23 16:17 DCW [id number]) Current Condition History of Current Condition Onset Date ~7 month history Current Complaints Instability/rocking sensation History of Current Condition Pt is a 77 year old female complaining of a seven month history of a wavy, rocking sensation when lying in bed. Pt reports it is pretty much constant any time she is lying in bed. Additionally notes some decreased stability when turning her head in standing. Admits that it began in July, when she had a very unfortunate episode of a constant, high-speed vertigo lasting about five hours. 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 Pt denies recent hearing changes , diplopia, or dysarthria, although does note tinnitus. Pt does think her symptoms have improved somewhat since it began, but is not really sure. Pt reports symptoms are not waxing/waning in nature. PT-OP-C Subjective Start: 02/02/23 16:06 Freq: Status: Active Protocol: Document 06/13/23 10:15 DCW (Rec: 06/13/23 11:00 DCW [id number]) OP-PT Subjective Patient Comments Patient Comments PT reporting less symptomatic recently with decreased associated life stress, although notes that earlier this week, she had her eyes dialited, which increased symptoms for a period of time. PT-OP-O Vestibular Start: 02/02/23 16:06 Freq: Status: Active Protocol: Document 06/13/23 10:15 DCW (Rec: 06/13/23 10:23 DCW [id number]) Vestibular Assessment Visual Testing DVA (Line Degradation) 5 Comments Vestibular Comments Tandem ambulation: 35 steps PT-OP-Q Treatments Start: 02/02/23 16:06 Freq: Status: Active Protocol: Document 06/13/23 10:15 DCW (Rec: 06/13/23 11:00 DCW [id number]) Gym Equipment Shuttle Balance Red Details WBOS (X1, EO/EC), Staggered, Lateral weight shift Neuro Re-Education Treatment Balance Activities BOSU Stance Details EO/EC, SLS Surface Blue BOSU Tandem Details Tandem Ambulation Dynamic Gait Details Hallway ambulation with head turns Comments Horizontal, Vertical, Diagonal Metronome 120 bpm PT-OP-T Assessment and Plan Start: 02/02/23 16:06 Freq: Status: Active Protocol: Document 06/13/23 10:15 DCW (Rec: 06/13/23 11:00 DCW [id number]) Physical Therapy Assessment Impairments Impairments Balance,Coordination, Functional Activities, Functional Mobility,Sensation, Vestibular Goals Two Impairment Pt experiences sensation of rocking/waviness at all times when in bed Detention Goal (LTG) Pt to report being asymptomatic throughout the night 60% of the time LTG Duration 08/13/23 - improving One Impairment Pt does not have an appropriate home exercise program Short Term Goal (STG) Pt to be independent and compliant with an appropriate HEP STG Duration Met Progress Towards Goals Progress Towards Goals Progressing Toward Goals Assessment Summary Assessment Despite recent setbacks and increased subjective symptoms, pt doing much better today. Continues to experience symptoms during the night, but has decreased frequency recently, apparently in association with decrease in other various life stressors. Will likely continue to improve with vestibular therapy focusing on habituation and adaptation exercises. Physical Therapy Plan Frequency and Duration Frequency of Treatment Every 1-2 weeks Plan of Care Start Date 06/13/23 Plan of Care End Date 08/13/23 Therapeutic Interventions Therapeutic Interventions Balance Training,Canalithic Repositioning,Coordination Training,Home Exercise Program ,Manual Therapy,Neuromuscular Re-education,Patient/Caregiver Education,Self-Care/Home Management,Therapeutic Activities,Therapeutic Exercises,Vestibular Rehabilitation Next Visit Focus/Plan Next Note Type Treatment Note Next Visit Plan Vestibular rehabilitation, Adaptation/habituation exercises
--- NOTE | 2023-06-13 11:00 | PT.OPPOC ---
Physical, Occupational & Speech Therapy At [facility] Current Diagnoses Vestibular neuronitis, right ear (06/13/23) Unsteadiness on feet (06/13/23) Abnormal vestibular function study (06/13/23) Visit Care Team Role Provider Type Clark Mahoney MD Family Provider Physician Primary Care Provider Specialty: Family Practice Address: [address] [place] [address], [id number] Email: [email or web address] Rony Steinberg MD Attending Provider Physician Referring Provider Specialty: Ear, Nose, Throat Address: [address] [place] [address], [id number] Email: [email or web address] Plan Of Care PT-OP-T Assessment and Plan Start: 02/02/23 16:06 Freq: Status: Active Protocol: Document 06/13/23 10:15 DCW (Rec: 06/13/23 11:00 DCW [id number]) Physical Therapy Assessment Impairments Impairments Balance,Coordination, Functional Activities, Functional Mobility,Sensation, Vestibular Goals Two Impairment Pt experiences sensation of rocking/waviness at all times when in bed Storage Center Manager Goal (LTG) Pt to report being asymptomatic throughout the night 60% of the time LTG Duration 08/13/23 - improving One Impairment Pt does not have an appropriate home exercise program Short Term Goal (STG) Pt to be independent and compliant with an appropriate HEP STG Duration Met Progress Towards Goals Progress Towards Goals Progressing Toward Goals Assessment Summary Assessment Despite recent setbacks and increased subjective symptoms, pt doing much better today. Continues to experience symptoms during the night, but has decreased frequency recently, apparently in association with decrease in other various life stressors. Will likely continue to improve with vestibular therapy focusing on habituation and adaptation exercises. Physical Therapy Plan Frequency and Duration Frequency of Treatment Every 1-2 weeks Plan of Care Start Date 06/13/23 Plan of Care End Date 08/13/23 Therapeutic Interventions Therapeutic Interventions Balance Training,Canalithic Repositioning,Coordination Training,Home Exercise Program ,Manual Therapy,Neuromuscular Re-education,Patient/Caregiver Education,Self-Care/Home Management,Therapeutic Activities,Therapeutic Exercises,Vestibular Rehabilitation Next Visit Focus/Plan Next Note Type Treatment Note Next Visit Plan Vestibular rehabilitation, Adaptation/habituation exercises Plan of Care Dates Plan of Care Start Date 06/13/23 Plan of Care End Date 08/13/23 Electronically Signed by: Charly Muir, PT 06/13/23 1100 If you are in agreement with this Plan of Care, please return a signed and dated copy. I have reviewed this Plan of Care and certify that the skilled therapy services above are required to meet the patient?s needs. Physician Signature Date Printed Name and Credentials Clinical Instructor Signature Printed Name and Credentials
--- NOTE | 2023-06-21 17:16 | PT.OTN ---
Current Diagnoses Vestibular neuronitis, right ear (06/21/23) Unsteadiness on feet (06/21/23) Abnormal vestibular function study (06/21/23) Physical Therapy Treatment Note PT-OP-A Visit Information Start: 02/02/23 16:06 Freq: Status: Active Protocol: Document 06/21/23 16:30 DCW (Rec: 06/21/23 17:16 DCW [id number]) Out-Patient Physical Therapy Visit Information Visit Information Visit Type Treatment Note Visit Start Time 16:30 Visit Stop Time 17:15 Total Visit Minutes 45 Visit Number 13 Number of MECHATRONICS TECHNOLOGIST Visits 0 Evaluation Information Evaluation Date 02/02/23 PT-OP-B Current Condition Start: 02/02/23 16:06 Freq: Status: Active Protocol: Document 02/02/23 13:30 DCW (Rec: 02/02/23 16:17 DCW [id number]) Current Condition History of Current Condition Onset Date ~7 month history Current Complaints Instability/rocking sensation History of Current Condition Pt is a 77 year old female complaining of a seven month history of a wavy, rocking sensation when lying in bed. Pt reports it is pretty much constant any time she is lying in bed. Additionally notes some decreased stability when turning her head in standing. Admits that it began in July, when she had a very unfortunate episode of a constant, high-speed vertigo lasting about five hours. 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 Pt denies recent hearing changes , diplopia, or dysarthria, although does note tinnitus. Pt does think her symptoms have improved somewhat since it began, but is not really sure. Pt reports symptoms are not waxing/waning in nature. PT-OP-C Subjective Start: 02/02/23 16:06 Freq: Status: Active Protocol: Document 06/21/23 16:30 DCW (Rec: 06/21/23 17:16 DCW [id number]) OP-PT Subjective Patient Comments Patient Comments Symptoms haven't been too bad , but last night was a little worse than usual PT-OP-O Vestibular Start: 02/02/23 16:06 Freq: Status: Active Protocol: Document 06/13/23 10:15 DCW (Rec: 06/13/23 10:23 DCW [id number]) Vestibular Assessment Visual Testing DVA (Line Degradation) 5 Comments Vestibular Comments Tandem ambulation: 35 steps PT-OP-Q Treatments Start: 02/02/23 16:06 Freq: Status: Active Protocol: Document 06/21/23 16:30 DCW (Rec: 06/21/23 17:16 [facility] [id number]) Gym Equipment Shuttle Balance Red Details WBOS (X1, EO/EC), Staggered, Lateral weight shift Neuro Re-Education Treatment Balance Activities BOSU Stance Details EO/EC, SLS Surface Blue BOSU Tandem Details Tandem Ambulation Comments Fwd, Bkwd, bow /c head turns Dynamic Gait Details Hallway ambulation with head turns Comments Horizontal, Vertical Metronome 120 bpm PT-OP-T Assessment and Plan Start: 02/02/23 16:06 Freq: Status: Active Protocol: Document 06/21/23 16:30 DCW (Rec: 06/21/23 17:16 [facility] [id number]) Physical Therapy Assessment Impairments Impairments Balance,Coordination, Functional Activities, Functional Mobility,Sensation, Vestibular Goals Two Impairment Pt experiences sensation of rocking/waviness at all times when in bed Varnish Maker Helper Goal (LTG) Pt to report being asymptomatic throughout the night 60% of the time LTG Duration 08/13/23 - improving One Impairment Pt does not have an appropriate home exercise program Short Term Goal (STG) Pt to be independent and compliant with an appropriate HEP STG Duration Met Progress Towards Goals Progress Towards Goals Progressing Toward Goals Assessment Summary Assessment Pt presenting with significantly more difficulty performing vestibular challenges today compared to prior visits. Had substantially more difficulty maintaining balance with any head motion, or with eyes closed. No clear instigating incident over the last few days. Physical Therapy Plan Frequency and Duration Frequency of Treatment Every 1-2 weeks Plan of Care Start Date 06/13/23 Plan of Care End Date 08/13/23 Therapeutic Interventions Therapeutic Interventions Balance Training,Canalithic Repositioning,Coordination Training,Home Exercise Program ,Manual Therapy,Neuromuscular Re-education,Patient/Caregiver Education,Self-Care/Home Management,Therapeutic Activities,Therapeutic Exercises,Vestibular Rehabilitation Next Visit Focus/Plan Next Note Type Treatment Note Next Visit Plan Vestibular rehabilitation, Adaptation/habituation exercises
--- NOTE | 2023-07-11 11:15 | PT.OTN ---
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) Unsteadiness on feet (07/11/23) Abnormal vestibular function study (07/11/23) Physical Therapy Treatment Note PT-OP-A Visit Information Start: 02/02/23 16:06 Freq: Status: Active Protocol: Document 07/11/23 10:30 DCW (Rec: 07/11/23 11:15 DCW [id number]) Out-Patient Physical Therapy Visit Information Visit Information Visit Type Treatment Note Visit Start Time 10:30 Visit Stop Time 11:15 Total Visit Minutes 45 Visit Number 14 Number of PLUG DRILL OPERATOR Visits 0 Evaluation Information Evaluation Date 02/02/23 PT-OP-B Current Condition Start: 02/02/23 16:06 Freq: Status: Active Protocol: Document 02/02/23 13:30 DCW (Rec: 02/02/23 16:17 DCW [id number]) Current Condition History of Current Condition Onset Date ~7 month history Current Complaints Instability/rocking sensation History of Current Condition Pt is a 77 year old female complaining of a seven month history of a wavy, rocking sensation when lying in bed. Pt reports it is pretty much constant any time she is lying in bed. Additionally notes some decreased stability when turning her head in standing. Admits that it began in July, when she had a very unfortunate episode of a constant, high-speed vertigo lasting about five hours. 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 Pt denies recent hearing changes , diplopia, or dysarthria, although does note tinnitus. Pt does think her symptoms have improved somewhat since it began, but is not really sure. Pt reports symptoms are not waxing/waning in nature. PT-OP-C Subjective Start: 02/02/23 16:06 Freq: Status: Active Protocol: Document 07/11/23 10:30 DCW (Rec: 07/11/23 11:15 DCW [id number]) OP-PT Subjective Patient Comments Patient Comments Pt returned from [place] on Sunday, notes she did not have any vertigo over the course of her vacation, and still has not since coming back. Admits it is probably a good sign that many of her symptoms are stress related. PT-OP-O Vestibular Start: 02/02/23 16:06 Freq: Status: Active Protocol: Document 06/13/23 10:15 DCW (Rec: 06/13/23 10:23 DCW [id number]) Vestibular Assessment Visual Testing DVA (Line Degradation) 5 Comments Vestibular Comments Tandem ambulation: 35 steps PT-OP-Q Treatments Start: 02/02/23 16:06 Freq: Status: Active Protocol: Document 07/11/23 10:30 DCW (Rec: 07/11/23 11:15 DCW [id number]) Gym Equipment Shuttle Balance Red Details WBOS (EO/EC), Staggered, Lateral weight shift Neuro Re-Education Treatment Balance Activities Tandem Details Tandem Ambulation Comments Fwd, Bkwd, bow /c head turns Dynamic Gait Details Hallway ambulation with head turns Comments Horizontal, Vertical Metronome 120 bpm PT-OP-T Assessment and Plan Start: 02/02/23 16:06 Freq: Status: Active Protocol: Document 07/11/23 10:30 DCW (Rec: 07/11/23 11:15 DCW [id number]) Physical Therapy Assessment Assessment Summary Assessment Feeling symptoms have been much better, hoping symptoms continue to be eliminated. Admits that if she is continues to be asymptomatic, will likely cancel her last scheduled visit. Physical Therapy Plan Frequency and Duration Frequency of Treatment Every 1-2 weeks Plan of Care Start Date 06/13/23 Plan of Care End Date 08/13/23 Therapeutic Interventions Therapeutic Interventions Balance Training,Canalithic Repositioning,Coordination Training,Home Exercise Program ,Manual Therapy,Neuromuscular Re-education,Patient/Caregiver Education,Self-Care/Home Management,Therapeutic Activities,Therapeutic Exercises,Vestibular Rehabilitation Next Visit Focus/Plan Next Note Type Treatment Note Next Visit Plan Vestibular rehabilitation, Adaptation/habituation exercises
--- NOTE | 2023-07-23 09:40 | PT.OPDS ---
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) Unsteadiness on feet (07/11/23) Abnormal vestibular function study (07/11/23) Visit Care Team Role Provider Type Clark Mahoney MD Family Provider Physician Primary Care Provider Specialty: Family Practice Address: [address] [place] [address], [address], [address] Email: [email or web address] Rony Steinberg MD Attending Provider Physician Referring Provider Specialty: Ear, Nose, Throat Address: [address] [place] [address], [id number] Email: [email or web address] Visit Number Visit Number 14 Discharge Summary PT-OP-B Current Condition Start: 02/02/23 16:06 Freq: Status: Active Protocol: Document 02/02/23 13:30 DCW (Rec: 02/02/23 16:17 DCW [id number]) Current Condition History of Current Condition Onset Date ~7 month history Current Complaints Instability/rocking sensation History of Current Condition Pt is a 77 year old female complaining of a seven month history of a wavy, rocking sensation when lying in bed. Pt reports it is pretty much constant any time she is lying in bed. Additionally notes some decreased stability when turning her head in standing. Admits that it began in July, when she had a very unfortunate episode of a constant, high-speed vertigo lasting about five hours. 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 Pt denies recent hearing changes , diplopia, or dysarthria, although does note tinnitus. Pt does think her symptoms have improved somewhat since it began, but is not really sure. Pt reports symptoms are not waxing/waning in nature. PT-OP-C Subjective Start: 02/02/23 16:06 Freq: Status: Active Protocol: Document 07/11/23 10:30 DCW (Rec: 07/11/23 11:15 DCW [id number]) OP-PT Subjective Patient Comments Patient Comments Pt returned from [place] on Sunday, notes she did not have any vertigo over the course of her vacation, and still has not since coming back. Admits it is probably a good sign that many of her symptoms are stress related. PT-OP-O Vestibular Start: 02/02/23 16:06 Freq: Status: Active Protocol: Document 06/13/23 10:15 DCW (Rec: 06/13/23 10:23 DCW [id number]) Vestibular Assessment Visual Testing DVA (Line Degradation) 5 Comments Vestibular Comments Tandem ambulation: 35 steps PT-OP-T Assessment and Plan Start: 02/02/23 16:06 Freq: Status: Active Protocol: Document 07/23/23 09:38 DCW (Rec: 07/23/23 09:40 DCW [id number]) Physical Therapy Assessment Goals Two Impairment Pt experiences sensation of rocking/waviness at all times when in bed Fci Goal (LTG) Pt to report being asymptomatic throughout the night 60% of the time LTG Duration Met One Impairment Pt does not have an appropriate home exercise program Short Term Goal (STG) Pt to be independent and compliant with an appropriate HEP STG Duration Met Assessment Summary Assessment Pt phoned to cancel last scheduled visit. Admitted last PT session that this was her plan if she continued to feel asymptomatic. Pt will be discharged at this time. Physical Therapy Plan Discharge Physical Therapy Discharge Reasons Goals Met Next Visit Focus/Plan Next Note Type Discharge Summary
== END 2023-07-24 12:31 | disposition home or self-care (01) ==
LOC: PHYS 10:30
PROVIDERS: Family Provider Family Medicine; PCP Family Medicine; Referring Provider Otolaryngology; Visit Provider Otolaryngology
DX: H81.21 Vestibular neuronitis, right ear (principal); R26.81 Unsteadiness on feet; R94.121 Abnormal vestibular function study
CPT/HCPCS: 97112; 97161

== ENCOUNTER 2023-08-09 07:25 | Outpatient (CLI) | payer MEDICARE, SELFPAY ==
[2023-08-09] VITALS (15 sets, daily range): BP systolic 142–194; BP diastolic 57–85; PULSE 68–83; RESP 12–24; TEMP 36.2; O2SAT 94–100
--- NOTE | 2023-08-09 08:00 | DI.RAD.S_ITS ---
PROCEDURE: PAIN L/S MED/LAT N RFA BILAT INDICATIONS: spondylosis COMPARISON: None. FINDINGS: Fluoroscopic spot filming was performed to verify placement of spinal needles at the bilateral L4, L5 and S1 level(s), as labeled on the films. Appropriate location(s) of the needle tip(s) was confirmed by injection of iodinated contrast. IMPRESSION: Intra procedural examination demonstrating appropriate positions of the needles. Dictated by: Angelo Caceres M.D. on 08/09/2023 at 10:00 Approved by: Angelo Caceres M.D. on 08/09/2023 at 10:01
[2023-08-09] MEDS: MIDAZOLAM 2 MG/2 ML VIAL 1 MG IV ×2 (08:04→08:30)
[2023-08-09] MEDS: fentaNYL 100 MCG/2 ML INJ 50 MCG IV (08:10)
[2023-08-09] MEDS: LIDOCAINE 1% 20 ML 5 ML INJ (08:12)
[2023-08-09] MEDS: BUPIVACAINE 0.5% (PF) 10 ML VIAL 5 ML INJ (08:12)
--- NOTE | 2023-08-09 08:50 | P.PCN_ITS ---
Date/Time/Diagnoses Date of procedure: 08/09/23 Time of procedure: 08:50 Pre-procedure diagnosis: 1. RECALCITRANT FACET ARTHROPATHY Post-procedure diagnosis: same Procedure Notes Procedure: 1. BILATERAL L4 AND L5 MEDIAL BRANCH RADIOFREQUENCY NEUROTOMY AND S1 DORSAL RAMUS BRANCH RADIOFREQUENCY NEUROTOMY Indications: Radha Soriano is referred by Dr. Mahoney for treatment of facet arthropathy. Physician: Froylan Castillo Total Fluoroscopy time (seconds): 23 Total sedation minutes: 40 Complications: none Procedure in detail & Post-procedure care: DESCRIPTION OF PROCEDURE Bilateral L4 and L5 medial branch radiofrequency neurotomy and bilateral S1 dorsal ramus radiofrequency neurotomy under fluoroscopy with conscious sedation. The patient is well known to this clinic having undergone previous facet injections with good but temporary relief. The patient has experienced appropriate, concordant relief with previous facet and median branch blocks but the patient's pain has been recalcitrant to further conservative measures. Therefore, based upon the patient's relief and persistent symptoms, the patient is considered an appropriate candidate for facet rhizotomy. All of the patient's questions regarding the risks versus benefits of the procedure, including, but not limited to, bleeding, infection, temporary as well as lasting nerve injury, paralysis, stroke, and , as well treatment alternatives were answered to satisfaction. After obtaining informed consent, denial of pertinent drug allergies, as well as being made aware of the potential risks of bleeding, infection, spinal cord trauma, paralysis, temporary and permanent nerve damage, seizure, stroke, and possible , the patient was brought to the fluoroscopy suite and positioned prone on the fluoroscopy table. The lumbar region was prepped in usual sterile fashion and covered with a fenestrated drape in the usual sterile fashion. Appropriate monitors applied including pulse oximeter, pulse, and blood pressure for regular monitoring throughout the procedure. After review of previous anaesthesic history and IV conscious sedation the patient was deemed safe to proceed with today's procedure with IV conscious sedation as ASA class II designation. Safety time-out was performed to confirm patient ID, procedure to be performed and site of procedure. IV sedation was accomplished with a combination of 2mg of Versed and 50mcg of Fentanyl administered by the RN after DO order, titrated to patient comfort during the course of the procedure while the patient remained responsive to all verbal commands. After local infiltration using 1% lidocaine, under fluoroscopic guidance, a 10- cm RF insulated needle with a 10-mm active tip was positioned parallel to the junction of the right sacral ala and the superior articulating process where the S1 dorsal ramus resides. Needle placement was confirmed with motor stimulation of .5v on the right which produced local stimulation without radicular component. The stimulation was then increased to 2v with, once again, only local multifidus stimulation without radicular component. The needle was then removed and the identical procedure was performed along the length of the right L5 medial branch with motor stimulation at .7v on the right. The identical procedure was once again performed along the length of the right L4 medial branch with motor stimulation of .5v on the right. The medial branches were then anesthetised with 0.5% Marcaine. This was then followed by two discreet lesions performed at 80 degrees Celsius for 90 seconds each. The identical procedure was repeated on the left. The patient tolerated the procedure well without signs or symptoms of complications prior to transfer to the recovery area continued monitoring without incident. The patient was then transferred to the recovery area where they were observed for an appropriate period of time after the injection. The patient reported a VAS score of 7 prior to the procedure and a post-procedure VAS of 0. POST OP INSTRUCTIONS The patient was provided a Pain Log to continue to record the patient's response to the target-specific procedure prior to the patient's follow-up visit with the referring physician. Additionally, specific post-injection care instructions and a contact number to our office were provided if concerns arise regarding possible complications associated with the procedure are suspected.
== END 2023-08-09 09:10 | disposition home or self-care (01) ==
LOC: RAD 07:25
PROVIDERS: Family Provider Family Medicine; PCP Family Medicine; Referring Provider Physical Medicine & Rehabilitation; Visit Provider Physical Medicine & Rehabilitation
DX: M47.816 Spondylosis without myelopathy or radiculopathy, lumbar region (principal); M47.817 Spondylosis without myelopathy or radiculopathy, lumbosacral region
CPT/HCPCS: 64635; 64636; 99152; 99153; J2250; J3010

== ENCOUNTER → 2024-02-08 09:27 | Outpatient (CLI) | payer MEDICARE, SELFPAY ==
--- NOTE | 2024-02-08 09:29 | DI.RAD.S_ITS ---
PROCEDURE: XR LUMBAR SPINE MIN 4V INDICATIONS: BACK PAIN TECHNIQUE: 5 views of the lumbar spine were acquired, including bilateral oblique views. COMPARISON: [facility], CR, XR LUMBAR SPINE MIN 4V, 12/08/2021, 10:56. [facility], CR, XR LUMBAR SPINE 2-3V, 10/14/2018, 15:15. FINDINGS: Bones: 5 nonrib-bearing vertebrae are present. Grade 1 anterolisthesis of L4 on L5. No vertebral body compression fractures. No suspicious bony lesions. There is multilevel facet arthropathy, worse at L4-5 and L5-S1. Mild multilevel disc height loss with degenerative endplate changes and spurring is present. Soft tissues: Overlying bowel gas pattern is normal. No suspicious soft tissue calcifications. Atherosclerotic vascular calcifications. Oblique images: No pars defects. IMPRESSION: Mild degenerative changes of the lumbar spine are redemonstrated. No acute osseous abnormalities. Dictated by: Angelo Caceres M.D. on 02/08/2024 at 9:52 Approved by: Angelo Caceres M.D. on 02/08/2024 at 9:53
== END ==
PROVIDERS: Family Provider Family Medicine; PCP Family Medicine; Referring Provider Physical Medicine & Rehabilitation; Visit Provider Physical Medicine & Rehabilitation
DX: M47.27 Other spondylosis with radiculopathy, lumbosacral region (principal); M47.26 Other spondylosis with radiculopathy, lumbar region; M43.16 Spondylolisthesis, lumbar region
CPT/HCPCS: 72110

== ENCOUNTER → 2024-02-20 15:55 | Outpatient (CLI) | payer MEDICARE, SELFPAY ==
[2024-02-20 17:54] LABS: Appearance Urine UA CLEAR; Bilirubin Urine UA NEGATIVE (NEGATIVE); Color Urine UA YELLOW; Glucose Urine UA NEGATIVE (Negative); Ketones Urine UA NEGATIVE (NEGATIVE); Leukocyte Esterase Urine UA NEGATIVE (NEGATIVE); Nitrite Urine UA NEGATIVE (Negative); Occult Blood Urine UA NEGATIVE (Negative); Protein Urine UA NEGATIVE (Negative); Specific Gravity Urine UA 1.025 (1.000-1.035); Urobilinogen Urine UA 0.2 E.U./dL (0.2)
[2024-02-20 17:55] LABS: pH Urine UA 5.5 (4.5-8.0)
== END ==
PROVIDERS: Family Provider Family Medicine; PCP Family Medicine; Referring Provider Family Medicine; Visit Provider Family Medicine
DX: R30.0 Dysuria (principal)
CPT/HCPCS: 81003

== ENCOUNTER 2024-03-07 11:15 | Outpatient (RCR) | payer MEDICARE, SELFPAY ==
--- NOTE | 2024-02-15 17:18 | PT.OIE ---
Current Diagnoses Stiffness of unspecified hip, not elsewhere classified (02/15/24) Muscle weakness (generalized) (02/15/24) Stress incontinence (female) (male) (02/15/24) Past Medical History (Last Reviewed 11/07/23 @ 09:41 by Froylan Castillo DO) Cystocele, unspecified Epicondylitis, lateral, left Facet arthropathy, lumbar Knee effusion, right Onychomycosis (01/21/15) Right knee pain Sciatica (12/16/14) Urinary hesitancy Past Surgical History (Last Reviewed 11/07/23 @ 09:41 by Froylan Castillo DO) History of bladder suspension procedure Status post appendectomy Status post delivery Status post hysterectomy Visit Care Team Role Provider Type Clark Mahoney MD Family Provider Physician Primary Care Provider Specialty: Family Practice Address: [address] [place] [address], [address], [facility] Email: [email or web address] Ale Randle MD Attending Provider Non-Staff Referring Provider Specialty: COAL CHEMIST Address: [address] [place] [address], [id number] Fax: Email: Physical Therapy Initial Evaluation PT-OP-A Visit Information Start: 02/08/24 08:07 Freq: Status: Active Protocol: Document 02/15/24 09:04 LRN (Rec: 02/15/24 09:52 LRN [id number]) Out-Patient Physical Therapy Visit Information Visit Information Visit Type Initial Evaluation Visit Start Time 09:04 Visit Stop Time 09:46 Visit Number 1 Evaluation Information Evaluation Date 02/15/24 Precautions Precautions PF surgery 10/2023, pt reported lung disease PT-OP-B Current Condition Start: 02/08/24 08:07 Freq: Status: Active Protocol: Document 02/15/24 09:04 LRN (Rec: 02/15/24 09:52 LRN [id number]) Current Condition History of Current Condition Onset Date 10/2023 Current Complaints s/p PF surgery of urethral sling, PF lift, & urination flow a slow trickle History of Current Condition Pt reports originally had stress incontinence after surgery (surgical report not available) for urethral sling and PF lift (forward/central) 10/2023. Prior to surgery was not leaking, but was having multiple bladder infections, but after surgery was leaking so referred to physical therapy. On her 2nd po surgery visit she was only leaking 1x/week, a couple drops of urinary. Additionally, she c/o a trickle stream to urinate. MD gave her different positions to urinate, but had her first bladder infection since surgery starting 01/28/24. She reports being finished with the antibiotic and hasn't gone back to see if she is cleared of her infection. Pt reported PMH: 8 yrs ago had fx 'd R femur and states she tore some ligs of the knee, severe vertigo a year ago due to virus attack of inner ear, and see personal factors below. 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 Prior Treatments and Tests X-ray 02/08/24: Grade 1 anterolisthesis of L4 on L5. Multilevel facet arthropathy, worse at L4 -5 and L5-S1. Mild multilevel disc height loss Future Testing and Treatments Planned Next MD appt in 9 months. Developmental History Developmental History Multiple bladder infections leading to PF surgery as pt mentioned above. Treatment Goals Patient/Caregiver Goals Pt goals is: -Walk w/o feeling like she has to push herself up a hill, because the muscles were stitched in a different positions than what they are used to being in. -Eliminate urinary leakage with cough/sneeze (currently leaks 1x/month). -Improve urinary stream with voiding. 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 PT-OP-C Subjective Start: 02/08/24 08:07 Freq: Status: Active Protocol: Document 02/15/24 09:04 LRN (Rec: 02/15/24 09:52 LRN [id number]) Patient Questionnaires Pelvic Pain and Urgency/Frequency Patient Symptom Scale Pelvic Pain Score 9 PT-OP-I Pelvic Floor Start: 02/08/24 08:07 Freq: Status: Active Protocol: Document 02/15/24 09:04 LRN (Rec: 02/15/24 09:52 LRN [id number]) Pelvic Floor Assessment Urine Pelvic Floor Surgery Yes: PF lift & urethra sling reported 10/2023 Urinary Symptoms Hesitancy,Incomplete Emptying Other Urinary Symptoms Small urinary stream, must bend forward and pushes with stomach to get urinary trickle when voiding, sometimes pain in urethra. Leakage Size Small Leakage Cause Cough,Sneeze Leaks Per Day 1x/month Voiding Frequency 5-6x Nocturia 0-1 Pads Used In 24 Hours occasional Bowel Bowel Surgery No Bowel Movement Frequency 1-2/day Mono Stool Chart Type 1-7 4 Pelvic Clock Pelvic Clock Other Tender at 4-9 of PF clock Contraction Ability Manual Muscle Testing Left 3 Manual Muscle Testing Right 0 Manual Muscle Testing Anterior 1 Manual Muscle Testing Posterior 3 Number of Quick Contractions In 10 12 Seconds Comments Pelvic Floor Comments Weak PF contractions of R lateral wall (6-11 of PF clock ) Endurance holding of PF: 10 secs L, 2 secs R PT-OP-J Posture/Palpation/Skin Start: 02/08/24 08:07 Freq: Status: Active Protocol: Document 02/15/24 09:04 LRN (Rec: 02/15/24 09:52 LRN [id number]) Posture Evaluation Position Standing Head/C-Spine Posture Forward Head L-Spine Posture Increased Lordosis Shoulder Posture (L) Elevated Pelvis Posture Anteriorly Tilted,(L) PSIS Inferior Weight Distribution Balanced Hip Posture (L) Externally Rotated PT-OP-K Range of Motion Start: 02/08/24 08:07 Freq: Status: Active Protocol: Document 02/15/24 09:04 LRN (Rec: 02/15/24 09:52 LRN [id number]) Lumbar Spine Range of Motion Lumbar Spine Active Degrees Testing Position Standing Flexion 85 Extension 5 Rotation Left 20 Rotation Right 15 Lateral Flexion Left 23 Lateral Flexion Right 10 ROM Limitations Soft Tissue Tightness Hip Goniometric Range of Motion Hip Right Passive Testing Position Supine Straight Leg Raise 75 Abduction 35 Internal Rotation 20 External Rotation 55 Left Passive Testing Position Supine Straight Leg Raise 70 Abduction 40 Internal Rotation 10 External Rotation 75 PT-OP-M Strength Start: 02/08/24 08:07 Freq: Status: Active Protocol: Document 02/15/24 09:04 LRN (Rec: 02/15/24 09:52 LRN [id number]) Hip Strength Hip Manual Muscle Testing Right Flexion (L2) 3 Fair Extension (S1) 3 Fair Adduction 3+ Fair+ External Rotation 3 Fair Internal Rotation 3 Fair Comments Strength is 5/5 escept as indicated above. Left Flexion (L2) 3+ Fair+ Extension (S1) 3 Fair Abduction 3 Fair External Rotation 3 Fair Internal Rotation 3 Fair Comments Strength is 5/5 escept as indicated above. PT-OP-Q Treatments Start: 02/08/24 08:07 Freq: Status: Active Protocol: Document 02/15/24 09:04 LRN (Rec: 02/15/24 09:52 LRN [id number]) Self-Care/Home Management Treatment Education Patient Education Home Exercise Program Other Education Discussed results of evaluation, goals, treatment, and plan of care (POC) with pt , discussed attendance/cx/dns policy; pt agreeable to evaluation, goals, treatment, attendance/cx/dns policy and POC. Activities Self-Care/Home Management Activities Issued & reviewed HEP: Brianna ex's and discussed exercise of Quick Flicks, Long Holds. PT-OP-T Assessment and Plan Start: 02/08/24 08:07 Freq: Status: Active Protocol: Document 02/15/24 09:04 LRN (Rec: 02/15/24 09:52 LRN [id number]) Physical Therapy Assessment Rehab Potential Rehabilitation Potential Good Evaluation Complexity Number of Personal Factors/Comorbidities 3 or More Number of Body Systems Impaired 4 or More Clinical Presentation at Evaluation Evolving Impairments Impairments Activity Tolerance,Posture,ROM ,Soft Tissue Mobility,Strength ,Transfers Other Impairments Slow urinary stream. Goals Four Impairment Urinary stream of a trickle with voiding Short Term Goal (STG) Improve urinary stream from a trickle to a slow stream with urination. STG Duration 4 wks-03/11/24 Outdoor Education Teacher Goal (LTG) Improve urinary stream from a slow to a moderate stream with voiding. LTG Duration 12 wks-05/09/24 Three Impairment Occasional urinary leakage with a cough or sneeze (~1x/ month) Short Term Goal (STG) Improve PF strength to 1-2/5 with greater symmetry of contraction around the PF clock. STG Duration 4 wks-03/11/24 Outdoor Education Teacher Goal (LTG) Normalize PF tissue tone to eliminate urinary leakage with cough/sneeze. LTG Duration 12 wks-05/09/24 Two Impairment Onset of fatigue in hip muscles with walking. Impairment Walk w/o feeling like she has to push herself up a hill, because the muscles were stitched in a different positions than what they are used to being in. Short Term Goal (STG) Improve mobility of hip internal rotators to 80% of normal (35 deg's) and educate pt in coordinating proper breath with activities and exercise, with pt able to walk for long distances w/o getting short of breath. STG Duration 4 wks-03/11/24 Fdc Goal (LTG) Normalize hip mobility and improve hip strength to 5/5 with pt able to walk without feeling fatigue in the hips. LTG Duration 12 wks-05/09/24 One Impairment Pt lacks an independent self care HEP. Short Term Goal (STG) Pt will be able to perform a proper deep breath to relax the PF during urinary voiding. STG Duration 4 wks-03/11/24 Fdc Goal (LTG) Pt will be independent in appropriate self care HEP of PF, abdominal & hip stretches; and core/hip strengthening ex 's. LTG Duration 12 wks-05/09/24 Assessment Summary Assessment Pt is a 78 yo female who presents with PF tenderness (4 -9 PF clock) possibly related to PF tightness, resulting in weak PF contractions around the PF clock (except normal at 6 OClock). It is concerning that she reports needing to bend forward and push in order get a trickle of urine while voiding. I did not have time to explore if the patient had good fluid management, but this will be addressed at her next appointment. The pt will benefit from skilled physical therapy for manual therapy to address her tight/tender PF, manual and therapeutic exercise to improve tissue mobility of her hips, abdomen and possibly urethral mobility if information can be obtained of her recent surgery as well as hip/core stabilization/PF strengthening , and pt education for PF relaxation and core pressure management and HEP. If the pt's urinary voiding condition worsens at her next appt she will be referred back for further assessment for bladder health. Physical Therapy Plan Frequency and Duration Frequency of Treatment 1x/Week Duration of treatment (weeks) 12 Plan of Care Start Date 02/15/24 Plan of Care End Date 05/09/24 Therapeutic Interventions Therapeutic Interventions Home Exercise Program,Manual Therapy,Neuromuscular Re- education,Self-Care/Home Management,Soft Tissue Mobilization,Therapeutic Activities,Therapeutic Exercises Modalities Biofeedback Next Visit Focus/Plan Next Note Type Treatment Note Next Visit Plan Next: Assess for pelvic obliquity/corrrection standing and supine & for LB involvement (DTRs). Assess response to PF strengthening R >L & Issue bladder diary. Education if needed: deep breathing for PF relaxation. Manual therapy: PF/urethra ( caution for sling) for greater urinary stream with voiding, Check abdomen & bladder mobility (hx of appy & C- section). Transfers and body mechanics training for reduction of intra-abdominal pressure w/ breathwork. Ther Ex: PF/core/hip (all) strengthening, improve hip april IR/hamstring & R>L hip AD mobility and trunk R rot/L SB mobility. PLAN: POC: Pt education, Manual therapy. Biofeedback with vaginal sensor (if surgical report deems it appropriate & if necessary). Therapeutic Exercises, Therapeutic Activities, Neuromuscular Reeducation.
--- NOTE | 2024-02-29 12:25 | PT.OTN ---
Current Diagnoses Stiffness of unspecified hip, not elsewhere classified (02/29/24) Muscle weakness (generalized) (02/29/24) Stress incontinence (female) (male) (02/29/24) Physical Therapy Treatment Note PT-OP-A Visit Information Start: 02/08/24 08:07 Freq: Status: Active Protocol: Document 02/29/24 11:16 LRN (Rec: 02/29/24 12:20 LRN [id number]) Out-Patient Physical Therapy Visit Information Visit Information Visit Type Treatment Note Visit Start Time 11:16 Visit Stop Time 11:56 Visit Number 2 Evaluation Information Evaluation Date 02/15/24 Precautions Precautions PF surgery 10/2023 (bladder lift and urethra sling), pt reported lung disease; lumbar nerve blocks, followed later by bilateral L4 and L5 medial branch radiofrequency neurotomy and bilateral S1 dorsal ramus radiofrequency neurotomy - 08/09/23. PT-OP-B Current Condition Start: 02/08/24 08:07 Freq: Status: Active Protocol: Document 02/15/24 09:04 LRN (Rec: 02/15/24 09:52 LRN [id number]) Current Condition History of Current Condition Onset Date 10/2023 Current Complaints s/p PF surgery of urethral sling, PF lift, & urination flow a slow trickle History of Current Condition Pt reports originally had stress incontinence after surgery (surgical report not available) for urethral sling and PF lift (forward/central) 10/2023. Prior to surgery was not leaking, but was having multiple bladder infections, but after surgery was leaking so referred to physical therapy. On her 2nd po surgery visit she was only leaking 1x/week, a couple drops of urinary. Additionally, she c/o a trickle stream to urinate. gave her different positions to urinate, but had her first bladder infection since surgery starting 01/28/24. She reports being finished with the antibiotic and hasn't gone back to see if she is cleared of her infection. Pt reported PMH: 8 yrs ago had fx 'd R femur and states she tore some ligs of the knee, severe vertigo a year ago due to virus attack of inner ear, and see personal factors below. 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 Prior Treatments and Tests X-ray 02/08/24: Grade 1 anterolisthesis of L4 on L5. Multilevel facet arthropathy, worse at L4 -5 and L5-S1. Mild multilevel disc height loss Future Testing and Treatments Planned Next MD appt in 9 months. Developmental History Developmental History Multiple bladder infections leading to PF surgery as pt mentioned above. Treatment Goals Patient/Caregiver Goals Pt goals is: -Walk w/o feeling like she has to push herself up a hill, because the muscles were stitched in a different positions than what they are used to being in. -Eliminate urinary leakage with cough/sneeze (currently leaks 1x/month). -Improve urinary stream with voiding. 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 PT-OP-C Subjective Start: 02/08/24 08:07 Freq: Status: Active Protocol: Document 02/29/24 11:16 LRN (Rec: 02/29/24 12:20 LRN [id number]) OP-PT Subjective Patient Comments Patient Comments UTI cleared via testing. States while doing breathing, it made her have a slight urge to urinate. Pt reports continuous trickle of urine of good volume, just taking long to void. Hasn't had the L hip pain (lateral sacral border region) since start of therapy. Used to have L hip pain from L4-L5, S1 levels and was treated with nerve blocks , then and had bilateral L4 and L5 medial branch radiofrequency neurotomy and bilateral S1 dorsal ramus radiofrequency neurotomy - . PT-OP-I Pelvic Floor Start: 02/08/24 08:07 Freq: Status: Active Protocol: Document 02/15/24 09:04 LRN (Rec: 02/15/24 09:52 LRN [id number]) Pelvic Floor Assessment Urine Pelvic Floor Surgery Yes: PF lift & urethra sling reported 10/2023 Urinary Symptoms Hesitancy,Incomplete Emptying Other Urinary Symptoms Small urinary stream, must bend forward and pushes with stomach to get urinary trickle when voiding, sometimes pain in urethra. Leakage Size Small Leakage Cause Cough,Sneeze Leaks Per Day 1x/month Voiding Frequency 5-6x Nocturia 0-1 Pads Used In 24 Hours occasional Bowel Bowel Surgery No Bowel Movement Frequency 1-2/day [place] Stool Chart Type 1-7 4 Pelvic Clock Pelvic Clock Other Tender at 4-9 of PF clock Contraction Ability Manual Muscle Testing Left 3 Manual Muscle Testing Right 0 Manual Muscle Testing Anterior 1 Manual Muscle Testing Posterior 3 Number of Quick Contractions In 10 12 Seconds Comments Pelvic Floor Comments Weak PF contractions of R lateral wall (6-11 of PF clock ) Endurance holding of PF: 10 secs L, 2 secs R PT-OP-J Posture/Palpation/Skin Start: 02/08/24 08:07 Freq: Status: Active Protocol: Document 02/15/24 09:04 LRN (Rec: 02/15/24 09:52 LRN [id number]) Posture Evaluation Position Standing Head/C-Spine Posture Forward Head L-Spine Posture Increased Lordosis Shoulder Posture (L) Elevated Pelvis Posture Anteriorly Tilted,(L) PSIS Inferior Weight Distribution Balanced Hip Posture (L) Externally Rotated PT-OP-K Range of Motion Start: 02/08/24 08:07 Freq: Status: Active Protocol: Document 02/15/24 09:04 LRN (Rec: 02/15/24 09:52 LRN [id number]) Lumbar Spine Range of Motion Lumbar Spine Active Degrees Testing Position Standing Flexion 85 Extension 5 Rotation Left 20 Rotation Right 15 Lateral Flexion Left 23 Lateral Flexion Right 10 ROM Limitations Soft Tissue Tightness Hip Goniometric Range of Motion Hip Right Passive Testing Position Supine Straight Leg Raise 75 Abduction 35 Internal Rotation 20 External Rotation 55 Left Passive Testing Position Supine Straight Leg Raise 70 Abduction 40 Internal Rotation 10 External Rotation 75 PT-OP-M Strength Start: 02/08/24 08:07 Freq: Status: Active Protocol: Document 02/15/24 09:04 LRN (Rec: 02/15/24 09:52 LRN [id number]) Hip Strength Hip Manual Muscle Testing Right Flexion (L2) 3 Fair Extension (S1) 3 Fair Adduction 3+ Fair+ External Rotation 3 Fair Internal Rotation 3 Fair Comments Strength is 5/5 escept as indicated above. Left Flexion (L2) 3+ Fair+ Extension (S1) 3 Fair Abduction 3 Fair External Rotation 3 Fair Internal Rotation 3 Fair Comments Strength is 5/5 escept as indicated above. PT-OP-Q Treatments Start: 02/08/24 08:07 Freq: Status: Active Protocol: Document 02/29/24 11:16 LRN (Rec: 02/29/24 12:20 LRN [id number]) Therapeutic Exercises Supine Exercises Happy Baby pose Reps/Minutes 2' Comments Cuing for positioning for stretch, holding knees > ankles Manual Therapy Treatment Consent Patient gave verbal consent for manual Yes treatment Soft Tissue Mobilization Abdomen Body Location Bladder, lower abdomen Mobilization Type Myofascial Release Body Position Supine, legs on bolster Comments Pt's bladder restricted in L lateral & positioned in L rot; improved positioning after mobilization. L lower trunk mobility restricted on L side with minimal improvement after STM. Self-Care/Home Management Treatment Education Other Education Discussed and educated pt in specifics for completion of in use of Bladder Diary and I/S in tracking for 1 week. Pt trainng in self L lateral trunk STM stretch Activities Self-Care/Home Management Activities Issued bladder diary handouts. I/S pt in Happy Baby Pose stretch & self STM of L lateral trunk. PT-OP-T Assessment and Plan Start: 02/08/24 08:07 Freq: Status: Active Protocol: Document 02/29/24 11:16 LRN (Rec: 02/29/24 12:20 LRN [id number]) Physical Therapy Assessment Goals Four Impairment Urinary stream of a trickle with voiding Short Term Goal (STG) Improve urinary stream from a trickle to a slow stream with urination. STG Duration 4 wks-03/11/24 Retirement Goal (LTG) Improve urinary stream from a slow to a moderate stream with voiding. LTG Duration 12 wks-05/09/24 Three Impairment Occasional urinary leakage with a cough or sneeze (~1x/ month) Short Term Goal (STG) Improve PF strength to 1-2/5 with greater symmetry of contraction around the PF clock. STG Duration 4 wks-03/11/24 [employer] Goal (LTG) Normalize PF tissue tone to eliminate urinary leakage with cough/sneeze. LTG Duration 12 wks-05/09/24 Two Impairment Onset of fatigue in hip muscles with walking. Impairment Walk w/o feeling like she has to push herself up a hill, because the muscles were stitched in a different positions than what they are used to being in. Short Term Goal (STG) Improve mobility of hip internal rotators to 80% of normal (35 deg's) and educate pt in coordinating proper breath with activities and exercise, with pt able to walk for long distances w/o getting short of breath. STG Duration 4 wks-03/11/24 [employer] Goal (LTG) Normalize hip mobility and improve hip strength to 5/5 with pt able to walk without feeling fatigue in the hips. LTG Duration 12 wks-05/09/24 One Impairment Pt lacks an independent self care HEP. Short Term Goal (STG) Pt will be able to perform a proper deep breath to relax the PF during urinary voiding. STG Duration 4 wks-03/11/24 Retirement Goal (LTG) Pt will be independent in appropriate self care HEP of PF, abdominal & hip stretches; and core/hip strengthening ex 's. 02/29/24: I/S pt in Happy Baby Pose LTG Duration 12 wks-05/09/24 progressed 02/29/24 Assessment Summary Assessment 78 yo female with PF tenderness (4-9 PF clock) possibly related to PF tightness, resulting in weak PF contractions around the PF clock (except normal at 6 OClock). It is concerning that she reports needing to bend forward and push in order get a trickle of urine while voiding. Today, she notes lessening of L hip pain with [place] ex's; bladder diary was issued and she appears to have a good understanding of how to complete. She had decreased bladder mobility and her bladder was in R rotation . + response to STM with almost normal positioning of bladder after MFR; L lower trunk tension still presists. The pt will benefit from manual therapy to her tight/ tender PF, manual and therapeutic ex for hip ROM, abdomen and possibly urethral mobility if information can be obtained of her recent surgery, and hip/core stabilization/PF strengthening , pt education for PF relaxation and core pressure management and HEP. The pt' s urinary voiding condition hasn't worsened, but will monitor after bladder diary review for any signs of bladder neuro dysfunction. Physical Therapy Plan Frequency and Duration Frequency of Treatment 1x/Week Duration of treatment (weeks) 12 Plan of Care Start Date 02/15/24 Plan of Care End Date 05/09/24 Next Visit Focus/Plan Next Note Type Treatment Note Next Visit Plan Next: Assess for pelvic obliquity/corrrection standing and supine & for LB involvement (DTRs). Review & discuss bladder diary and make recommendations as needed for fluid input/output. Recheck PF strength and tone for tightness. Education if needed: deep breathing for PF relaxation. Manual therapy: PF/urethra ( caution for sling) for greater urinary stream with voiding, Check abdomen & bladder mobility (hx of appy & C- section). Transfers and body mechanics training for reduction of intra-abdominal pressure w/ breathwork. Ther Ex: PF/core/hip (all) strengthening, improve hip april IR/hamstring & R>L hip AD mobility and trunk R rot/L SB mobility. PLAN: POC: Pt education, Manual therapy. ?Biofeedback with vaginal sensor (if surgical report deems it appropriate & if necessary). Therapeutic Exercises, Therapeutic Activities, Neuromuscular Reeducation.
--- NOTE | 2024-03-07 15:31 | PT.OTN ---
Current Diagnoses Stiffness of unspecified hip, not elsewhere classified (03/07/24) Muscle weakness (generalized) (03/07/24) Stress incontinence (female) (male) (03/07/24) Physical Therapy Treatment Note PT-OP-A Visit Information Start: 02/08/24 08:07 Freq: Status: Active Protocol: Document 03/07/24 11:34 LRN (Rec: 03/07/24 12:21 LRN [id number]) Out-Patient Physical Therapy Visit Information Visit Information Visit Type Treatment Note Visit Start Time 11:34 Visit Stop Time 12:19 Visit Number 3 Evaluation Information Evaluation Date 02/15/24 Precautions Precautions PF surgery 10/2023 (bladder lift and urethra sling), pt reported lung disease; lumbar nerve blocks, followed later by bilateral L4 and L5 medial branch radiofrequency neurotomy and bilateral S1 dorsal ramus radiofrequency neurotomy - 08/09/23. PT-OP-B Current Condition Start: 02/08/24 08:07 Freq: Status: Active Protocol: Document 02/15/24 09:04 LRN (Rec: 02/15/24 09:52 LRN [id number]) Current Condition History of Current Condition Onset Date 10/2023 Current Complaints s/p PF surgery of urethral sling, PF lift, & urination flow a slow trickle History of Current Condition Pt reports originally had stress incontinence after surgery (surgical report not available) for urethral sling and PF lift (forward/central) 10/2023. Prior to surgery was not leaking, but was having multiple bladder infections, but after surgery was leaking so referred to physical therapy. On her 2nd po surgery visit she was only leaking 1x/week, a couple drops of urinary. Additionally, she c/o a trickle stream to urinate. gave her different positions to urinate, but had her first bladder infection since surgery starting 01/28/24. She reports being finished with the antibiotic and hasn't gone back to see if she is cleared of her infection. Pt reported PMH: 8 yrs ago had fx 'd R femur and states she tore some ligs of the knee, severe vertigo a year ago due to virus attack of inner ear, and see personal factors below. 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 Prior Treatments and Tests X-ray 02/08/24: Grade 1 anterolisthesis of L4 on L5. Multilevel facet arthropathy, worse at L4 -5 and L5-S1. Mild multilevel disc height loss Future Testing and Treatments Planned Next MD appt in 9 months. Developmental History Developmental History Multiple bladder infections leading to PF surgery as pt mentioned above. Treatment Goals Patient/Caregiver Goals Pt goals is: -Walk w/o feeling like she has to push herself up a hill, because the muscles were stitched in a different positions than what they are used to being in. -Eliminate urinary leakage with cough/sneeze (currently leaks 1x/month). -Improve urinary stream with voiding. 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 PT-OP-C Subjective Start: 02/08/24 08:07 Freq: Status: Active Protocol: Document 03/07/24 11:34 LRN (Rec: 03/07/24 12:21 LRN [id number]) OP-PT Subjective Patient Comments Patient Comments c/o tightness of L hip. No longer having tightness and pain in the PF seems to have resolved. Frequent urinations are no longer a problem. Urinary stream is no longer a trickle, but is a strong trickle, and is happy with her urinary stream unless it causes her a urinary contraction. This week has been a very stressful week because of [employer] activities and getting ready to move. PT-OP-I Pelvic Floor Start: 02/08/24 08:07 Freq: Status: Active Protocol: Document 02/15/24 09:04 LRN (Rec: 02/15/24 09:52 LRN [id number]) Pelvic Floor Assessment Urine Pelvic Floor Surgery Yes: PF lift & urethra sling reported 10/2023 Urinary Symptoms Hesitancy,Incomplete Emptying Other Urinary Symptoms Small urinary stream, must bend forward and pushes with stomach to get urinary trickle when voiding, sometimes pain in urethra. Leakage Size Small Leakage Cause Cough,Sneeze Leaks Per Day 1x/month Voiding Frequency 5-6x Nocturia 0-1 Pads Used In 24 Hours occasional Bowel Bowel Surgery No Bowel Movement Frequency 1-2/day [place] Stool Chart Type 1-7 4 Pelvic Clock Pelvic Clock Other Tender at 4-9 of PF clock Contraction Ability Manual Muscle Testing Left 3 Manual Muscle Testing Right 0 Manual Muscle Testing Anterior 1 Manual Muscle Testing Posterior 3 Number of Quick Contractions In 10 12 Seconds Comments Pelvic Floor Comments Weak PF contractions of R lateral wall (6-11 of PF clock ) Endurance holding of PF: 10 secs L, 2 secs R PT-OP-J Posture/Palpation/Skin Start: 02/08/24 08:07 Freq: Status: Active Protocol: Document 02/15/24 09:04 LRN (Rec: 02/15/24 09:52 LRN [id number]) Posture Evaluation Position Standing Head/C-Spine Posture Forward Head L-Spine Posture Increased Lordosis Shoulder Posture (L) Elevated Pelvis Posture Anteriorly Tilted,(L) PSIS Inferior Weight Distribution Balanced Hip Posture (L) Externally Rotated PT-OP-K Range of Motion Start: 02/08/24 08:07 Freq: Status: Active Protocol: Document 02/15/24 09:04 LRN (Rec: 02/15/24 09:52 LRN [id number]) Lumbar Spine Range of Motion Lumbar Spine Active Degrees Testing Position Standing Flexion 85 Extension 5 Rotation Left 20 Rotation Right 15 Lateral Flexion Left 23 Lateral Flexion Right 10 ROM Limitations Soft Tissue Tightness Hip Goniometric Range of Motion Hip Right Passive Testing Position Supine Straight Leg Raise 75 Abduction 35 Internal Rotation 20 External Rotation 55 Left Passive Testing Position Supine Straight Leg Raise 70 Abduction 40 Internal Rotation 10 External Rotation 75 PT-OP-M Strength Start: 02/08/24 08:07 Freq: Status: Active Protocol: Document 02/15/24 09:04 LRN (Rec: 02/15/24 09:52 LRN [id number]) Hip Strength Hip Manual Muscle Testing Right Flexion (L2) 3 Fair Extension (S1) 3 Fair Adduction 3+ Fair+ External Rotation 3 Fair Internal Rotation 3 Fair Comments Strength is 5/5 escept as indicated above. Left Flexion (L2) 3+ Fair+ Extension (S1) 3 Fair Abduction 3 Fair External Rotation 3 Fair Internal Rotation 3 Fair Comments Strength is 5/5 escept as indicated above. PT-OP-Q Treatments Start: 02/08/24 08:07 Freq: Status: Active Protocol: Document 03/07/24 11:34 LRN (Rec: 03/07/24 12:21 LRN [id number]) Therapeutic Exercises Supine Exercises Lateral hip stretch Side bilateral Reps/Minutes 4' Comments Cued for positioning, extra time to train pt in positioning & max genet stret Piriformis stretch Supine Exercise Name ankle over knee > opp knee to chest Side bilateral Reps/Minutes 4' Comments Extra time to train pt in positioning and max genet stretch. Happy Baby pose Reps/Minutes 2' Comments Cuing for positioning for stretch, holding knees > ankles Neuro Re-Education Treatment Movement Re-Education Movement Re-education Activities Transfers with breathing for core pressure management. Transfers stand<>sit x4, sit< >sidelye x 4, sidelye<>supine x 4 Initially v cuing throughout the movement patterns, but pt was able to demonstrate proper breathing pattern with transfers by end of training. Self-Care/Home Management Treatment Education Other Education Reviewed Bladder dairy and discussed fluid intake/output balancing, bowel movement types (her diahrrea) and BM frequency and discussed use of increased fiber to firm stools vs increasing water intake. Pt educated in PF muscles and internal organ positioning, explaining cystocele and rectocele and discussed how this can worsen with breath holding. Discussed pelvic stability can be affected by asymmetry of hip mobility and her decreased hip strength. Discussed goals for pt agreement. Pt agreeable to continue therapy for goals set . Activities Self-Care/Home Management Activities Issued handouts for HEP: Stretches: L hip IR ( piriformis & lateral hip stretch), & R hip ER (sitting fig 4); and PF Happy Baby stretch. Handout issued for coordination of breath with transfers. PT-OP-T Assessment and Plan Start: 02/08/24 08:07 Freq: Status: Active Protocol: Document 03/07/24 11:34 LRN (Rec: 03/07/24 12:21 LRN [id number]) Physical Therapy Assessment Goals Four Impairment Urinary stream of a trickle with voiding Short Term Goal (STG) Improve urinary stream from a trickle to a slow stream with urination. 03/07/24: Pt feels her stream is a strong trickle = slow stream STG Duration 4 wks-03/11/24 03/07/24: MET GOAL [facility] Goal (LTG) Improve urinary stream from a slow to a moderate stream with voiding. 03/07/24: Pt happy with where she currently is, which is a slow stream close to a moderate stream. LTG Duration 12 wks-05/09/24 progressed 03/07/24 Three Impairment Occasional urinary leakage with a cough or sneeze (~1x/ month) Short Term Goal (STG) Improve PF strength to 1-2/5 with greater symmetry of contraction around the PF clock. STG Duration 4 wks-03/11/24 [facility] Goal (LTG) Normalize PF tissue tone to eliminate urinary leakage with cough/sneeze. 03/07/24: No urinary leakage with sneezing or coughing. LTG Duration 12 wks-05/09/24 (03/07/24: MET GOAL) Two Impairment Onset of fatigue in hip muscles with walking. Impairment Walk w/o feeling like she has to push herself up a hill, because the muscles were stitched in a different positions than what they are used to being in. Short Term Goal (STG) Improve mobility of hip internal rotators to 80% of normal (35 deg's) and educate pt in coordinating proper breath with activities and exercise, with pt able to walk for long distances w/o getting short of breath. 03/07/24: Pt issued HEP: Piriform & Lateral hip stretch . STG Duration 4 wks-03/11/24 progression 03/07/24 [employer] Goal (LTG) Normalize hip mobility and improve hip strength to 5/5 with pt able to walk without feeling fatigue in the hips. 03/07/24: Pt feels she no longer has fatigue in her hips . LTG Duration 12 wks-05/09/24 03/07/24: pt satisfaction for daily activity One Impairment Pt lacks an independent self care HEP. Short Term Goal (STG) Pt will be able to perform a proper deep breath to relax the PF during urinary voiding. 03/07/24: (pt reports 20% of her lungs are scar tissue). Pt able to demonstrate proper deep breathing mechanics. STG Duration 4 wks-03/11/24 (03/07/24: MET GOAL) [facility] Goal (LTG) Pt will be independent in appropriate self care HEP of PF, abdominal & hip stretches; and core/hip strengthening ex 's. 02/29/24: I/S pt in Happy Baby Pose : HEP: Stretches: L hip IR (piriformis & lateral hip stretch), & R hip ER ( sitting fig 4); and PF Happy Baby stretch. Handout issued for coordination of breath with transfers. LTG Duration 12 wks-05/09/24 progressed 03/07/24 Assessment Summary Assessment 78 yo female with initial PF tenderness (4-9 PF clock) possibly related to PF tightness, resulting in weak PF contractions around the PF clock (except normal at 6 OClock). Today pt presents with L hip tightness but resolution of PF pain and frequent urinations. She is reporting increase in her urine stream to now a strong trickle. The pt is agreeable to cont therapy to improve hip PROM, strength, increase urinary stream volume flow and HEP. Physical Therapy Plan Frequency and Duration Frequency of Treatment 1x/Week Duration of treatment (weeks) 12 Plan of Care Start Date 02/15/24 Plan of Care End Date 05/09/24 Next Visit Focus/Plan Next Note Type Treatment Note Next Visit Plan Next: Assess for pelvic obliquity/corrrection standing and supine & monitor the LB involvement. Assess response to deep breathing for PF relaxation with urination. Recheck PF strength and tone for tightness. Assess adherence to transfers and body mechanics training for reduction of intra-abdominal pressure w/breathwork. Manual therapy: ?PF/urethra (caution for sling) for greater urinary stream with voiding, Check abdomen & bladder mobility (hx of appy & ). Ther Ex: PF/core/hip (all) strengthening, Ex's for: hamstring & R>L hip AD mobility and trunk R rot/L SB mobility. PLAN: POC: Pt education, Manual therapy. ?Biofeedback with vaginal sensor (if surgical report deems it appropriate & if necessary). Therapeutic Exercises, Therapeutic Activities, Neuromuscular Reeducation.
--- NOTE | 2024-05-05 09:18 | PT.OPDS ---
Current Diagnoses Stiffness of unspecified hip, not elsewhere classified (03/07/24) Muscle weakness (generalized) (03/07/24) Stress incontinence (female) (male) (03/07/24) Visit Care Team Role Provider Type Clark Mahoney MD Family Provider Physician Primary Care Provider Specialty: Family Practice Address: [address] [place] [address], [address], [address] Email: [email or web address] Ale Randle MD Attending Provider Non-Staff Referring Provider Specialty: TRUCKMAN Address: [address] [place], [address] Fax: Email: Visit Number Visit Number 3 Discharge Summary PT-OP-B Current Condition Start: 02/08/24 08:07 Freq: Status: Active Protocol: Document 02/15/24 09:04 LRN (Rec: 02/15/24 09:52 LRN [id number]) Current Condition History of Current Condition Onset Date 10/2023 Current Complaints s/p PF surgery of urethral sling, PF lift, & urination flow a slow trickle History of Current Condition Pt reports originally had stress incontinence after surgery (surgical report not available) for urethral sling and PF lift (forward/central) 10/2023. Prior to surgery was not leaking, but was having multiple bladder infections, but after surgery was leaking so referred to physical therapy. On her 2nd po surgery visit she was only leaking 1x/week, a couple drops of urinary. Additionally, she c/o a trickle stream to urinate. MD gave her different positions to urinate, but had her first bladder infection since surgery starting 01/28/24. She reports being finished with the antibiotic and hasn't gone back to see if she is cleared of her infection. Pt reported PMH: 8 yrs ago had fx 'd R femur and states she tore some ligs of the knee, severe vertigo a year ago due to virus attack of inner ear, and see personal factors below. 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 Prior Treatments and Tests X-ray 02/08/24: Grade 1 anterolisthesis of L4 on L5. Multilevel facet arthropathy, worse at L4 -5 and L5-S1. Mild multilevel disc height loss Future Testing and Treatments Planned Next MD appt in 9 months. Developmental History Developmental History Multiple bladder infections leading to PF surgery as pt mentioned above. Treatment Goals Patient/Caregiver Goals Pt goals is: -Walk w/o feeling like she has to push herself up a hill, because the muscles were stitched in a different positions than what they are used to being in. -Eliminate urinary leakage with cough/sneeze (currently leaks 1x/month). -Improve urinary stream with voiding. 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 PT-OP-C Subjective Start: 02/08/24 08:07 Freq: Status: Active Protocol: Document 03/07/24 11:34 LRN (Rec: 03/07/24 12:21 LRN [id number]) OP-PT Subjective Patient Comments Patient Comments c/o tightness of L hip. No longer having tightness and pain in the PF seems to have resolved. Frequent urinations are no longer a problem. Urinary stream is no longer a trickle, but is a strong trickle, and is happy with her urinary stream unless it causes her a urinary contraction. This week has been a very stressful week because of [employer] activities and getting ready to move. PT-OP-I Pelvic Floor Start: 02/08/24 08:07 Freq: Status: Active Protocol: Document 02/15/24 09:04 LRN (Rec: 02/15/24 09:52 LRN [id number]) Pelvic Floor Assessment Urine Pelvic Floor Surgery Yes: PF lift & urethra sling reported 10/2023 Urinary Symptoms Hesitancy,Incomplete Emptying Other Urinary Symptoms Small urinary stream, must bend forward and pushes with stomach to get urinary trickle when voiding, sometimes pain in urethra. Leakage Size Small Leakage Cause Cough,Sneeze Leaks Per Day 1x/month Voiding Frequency 5-6x Nocturia 0-1 Pads Used In 24 Hours occasional Bowel Bowel Surgery No Bowel Movement Frequency 1-2/day [place] Stool Chart Type 1-7 4 Pelvic Clock Pelvic Clock Other Tender at 4-9 of PF clock Contraction Ability Manual Muscle Testing Left 3 Manual Muscle Testing Right 0 Manual Muscle Testing Anterior 1 Manual Muscle Testing Posterior 3 Number of Quick Contractions In 10 12 Seconds Comments Pelvic Floor Comments Weak PF contractions of R lateral wall (6-11 of PF clock ) Endurance holding of PF: 10 secs L, 2 secs R PT-OP-J Posture/Palpation/Skin Start: 02/08/24 08:07 Freq: Status: Active Protocol: Document 02/15/24 09:04 LRN (Rec: 02/15/24 09:52 LRN [id number]) Posture Evaluation Position Standing Head/C-Spine Posture Forward Head L-Spine Posture Increased Lordosis Shoulder Posture (L) Elevated Pelvis Posture Anteriorly Tilted,(L) PSIS Inferior Weight Distribution Balanced Hip Posture (L) Externally Rotated PT-OP-K Range of Motion Start: 02/08/24 08:07 Freq: Status: Active Protocol: Document 02/15/24 09:04 LRN (Rec: 02/15/24 09:52 LRN [id number]) Lumbar Spine Range of Motion Lumbar Spine Active Degrees Testing Position Standing Flexion 85 Extension 5 Rotation Left 20 Rotation Right 15 Lateral Flexion Left 23 Lateral Flexion Right 10 ROM Limitations Soft Tissue Tightness Hip Goniometric Range of Motion Hip Right Passive Testing Position Supine Straight Leg Raise 75 Abduction 35 Internal Rotation 20 External Rotation 55 Left Passive Testing Position Supine Straight Leg Raise 70 Abduction 40 Internal Rotation 10 External Rotation 75 PT-OP-M Strength Start: 02/08/24 08:07 Freq: Status: Active Protocol: Document 02/15/24 09:04 LRN (Rec: 02/15/24 09:52 LRN [id number]) Hip Strength Hip Manual Muscle Testing Right Flexion (L2) 3 Fair Extension (S1) 3 Fair Adduction 3+ Fair+ External Rotation 3 Fair Internal Rotation 3 Fair Comments Strength is 5/5 escept as indicated above. Left Flexion (L2) 3+ Fair+ Extension (S1) 3 Fair Abduction 3 Fair External Rotation 3 Fair Internal Rotation 3 Fair Comments Strength is 5/5 escept as indicated above. PT-OP-T Assessment and Plan Start: 02/08/24 08:07 Freq: Status: Active Protocol: Document 05/05/24 09:10 LRN (Rec: 05/05/24 09:18 LRN [id number]) Physical Therapy Assessment Goals Four Impairment Urinary stream of a trickle with voiding Short Term Goal (STG) Improve urinary stream from a trickle to a slow stream with urination. 03/07/24: Pt feels her stream is a strong trickle = slow stream STG Duration 4 wks-03/11/24 03/07/24: MET GOAL Manager Spanish Goal (LTG) Improve urinary stream from a slow to a moderate stream with voiding. 03/07/24: Pt happy with where she currently is, which is a slow stream close to a moderate stream. LTG Duration 12 wks-05/09/24 progressed 03/07/24 Three Impairment Occasional urinary leakage with a cough or sneeze (~1x/ month) Short Term Goal (STG) Improve PF strength to 1-2/5 with greater symmetry of contraction around the PF clock. STG Duration 4 wks-03/11/24 Manager Spanish Goal (LTG) Normalize PF tissue tone to eliminate urinary leakage with cough/sneeze. 03/07/24: No urinary leakage with sneezing or coughing. LTG Duration 12 wks-05/09/24 (03/07/24: MET GOAL) Two Impairment Onset of fatigue in hip muscles with walking. Impairment Walk w/o feeling like she has to push herself up a hill, because the muscles were stitched in a different positions than what they are used to being in. Short Term Goal (STG) Improve mobility of hip internal rotators to 80% of normal (35 deg's) and educate pt in coordinating proper breath with activities and exercise, with pt able to walk for long distances w/o getting short of breath. 03/07/24: Pt issued HEP: Piriform & Lateral hip stretch . STG Duration 4 wks-03/11/24 progression 03/07/24 Halfway Goal (LTG) Normalize hip mobility and improve hip strength to 5/5 with pt able to walk without feeling fatigue in the hips. 03/07/24: Pt feels she no longer has fatigue in her hips . LTG Duration 12 wks-05/09/24 03/07/24: pt satisfaction for daily activity One Impairment Pt lacks an independent self care HEP. Short Term Goal (STG) Pt will be able to perform a proper deep breath to relax the PF during urinary voiding. 03/07/24: (pt reports 20% of her lungs are scar tissue). Pt able to demonstrate proper deep breathing mechanics. STG Duration 4 wks-03/11/24 (03/07/24: MET GOAL) Manager Spanish Goal (LTG) Pt will be independent in appropriate self care HEP of PF, abdominal & hip stretches; and core/hip strengthening ex 's. 02/29/24: I/S pt in Happy Baby Pose : HEP: Stretches: L hip IR (piriformis & lateral hip stretch), & R hip ER ( sitting fig 4); and PF Happy Baby stretch. Handout issued for coordination of breath with transfers. LTG Duration 12 wks-05/09/24 progressed 03/07/24 Assessment Summary Assessment Pt is a 78 yo female with initial PF tenderness (4-9 PF clock) found possibly related to PF tightness, resulting in weak PF contractions around the PF clock (except normal at 6 OClock). The pt was seen for 3 treatment visits and on her last visit showed good improvement with L hip tightness but resolution of PF pain and frequent urinations. She is reported increase in her urine stream to now a strong trickle. On 04/08/24 the pt called to cancel her remaining appts and requested DC because of other health issues needing treatment. The pt was not able to complete her program; therefore her goals were not met. The pt would benefit from physical therapy in the future if urinary leakage persists. Physical Therapy Plan Discharge Physical Therapy Discharge Reasons Change in Medical Status Discharge Comments See assessment above. Thank you for your referral.
== END 2024-05-06 14:52 | disposition home or self-care (01) ==
LOC: PHYS 11:15
PROVIDERS: Family Provider Family Medicine; PCP Family Medicine; Referring Provider Obstetrics & Gynecology; Visit Provider Obstetrics & Gynecology
DX: N39.3 Stress incontinence (female) (male) (principal); M62.81 Muscle weakness (generalized); M25.659 Stiffness of unspecified hip, not elsewhere classified
CPT/HCPCS: 97110; 97140; 97162; 97530; 97535

== ENCOUNTER → 2024-03-31 14:53 | Outpatient (CLI) | payer MEDICARE, SELFPAY ==
[2024-03-31 16:40] LABS: Appearance Urine UA SL CLOUDY; Bilirubin Urine UA NEGATIVE (NEGATIVE); Color Urine UA YELLOW; Glucose Urine UA NEGATIVE (Negative); Ketones Urine UA NEGATIVE (NEGATIVE); Leukocyte Esterase Urine UA 1+ (NEGATIVE); Nitrite Urine UA NEGATIVE (Negative); Occult Blood Urine UA NEGATIVE (Negative); Protein Urine UA NEGATIVE (Negative); Urobilinogen Urine UA 0.2 E.U./dL (0.2)
[2024-03-31 16:41] LABS: pH Urine UA 5.5 (4.5-8.0)
[2024-03-31 16:48] LABS: Bacteria Urine Many (>30); Culture Indicated Urine Specimen Cultured; RBC Urine None Seen (0-5/HPF); Squamous Epithelial Cell Urine 10-30 /HPF (0-5/HPF); Urine Volume 10mL (spun); WBC Urine 5-10/HPF (0-5/HPF)
== END ==
PROVIDERS: Family Provider Family Medicine; PCP Family Medicine; Referring Provider Family Medicine; Visit Provider Family Medicine
DX: R35.0 Frequency of micturition (principal); R82.90 Unspecified abnormal findings in urine
CPT/HCPCS: 81001; 87077; 87086; 87186

== ENCOUNTER → 2024-04-14 17:38 | Outpatient (CLI) | payer MEDICARE, SELFPAY ==
[2024-04-14 18:20] LABS: Appearance Urine UA CLEAR; Bilirubin Urine UA NEGATIVE (NEGATIVE); Color Urine UA YELLOW; Glucose Urine UA NEGATIVE (Negative); Ketones Urine UA NEGATIVE (NEGATIVE); Leukocyte Esterase Urine UA NEGATIVE (NEGATIVE); Nitrite Urine UA NEGATIVE (Negative); Occult Blood Urine UA NEGATIVE (Negative); Protein Urine UA NEGATIVE (Negative); Specific Gravity Urine UA 1.025 (1.000-1.035); Urobilinogen Urine UA 0.2 E.U./dL (0.2)
[2024-04-14 18:32] LABS: pH Urine UA 5.5 (4.5-8.0)
[2024-04-14 18:35] LABS: Bacteria Urine None Seen; Culture Indicated Urine Cult Not Indicated; RBC Urine None Seen (0-5/HPF); Squamous Epithelial Cell Urine 0-1 /HPF (0-5/HPF); Urine Volume 10mL (spun); WBC Urine 1-5/HPF (0-5/HPF)
== END ==
PROVIDERS: Family Provider Family Medicine; PCP Family Medicine; Referring Provider Family Medicine; Visit Provider Family Medicine
DX: R35.0 Frequency of micturition (principal)
CPT/HCPCS: 81001

== ENCOUNTER → 2024-04-21 09:24 | Outpatient (CLI) | payer MEDICARE, SELFPAY ==
[2024-04-21 09:44] LABS: BUN Creatinine Ratio 14.9 (6-22); Blood Urea Nitrogen 11 mg/dL (7-17); Carbon Dioxide 21 mmol/L (22-32); Chloride 107 mmol/L (98-107); Estimated Glomerular Filt Rate > 60 mL/min (>60); Glucose 119 mg/dL (80-110); HEMOLYSIS < 15 (0-50); Potassium 3.6 mmol/L (3.4-5.1); Sodium 139 mmol/L (137-145)
== END ==
PROVIDERS: Family Provider Family Medicine; PCP Family Medicine; Visit Provider Nurse Practitioner Family
DX: U07.1 COVID-19 (principal)
CPT/HCPCS: 80048

== ENCOUNTER → 2024-05-01 15:00 | Outpatient (CLI) | payer MEDICARE, SELFPAY ==
[2024-05-01 15:49] LABS: Appearance Urine UA CLEAR; Bilirubin Urine UA NEGATIVE (NEGATIVE); Color Urine UA YELLOW; Glucose Urine UA NEGATIVE (Negative); Ketones Urine UA NEGATIVE (NEGATIVE); Leukocyte Esterase Urine UA 3+ (NEGATIVE); Nitrite Urine UA NEGATIVE (Negative); Occult Blood Urine UA NEGATIVE (Negative); Protein Urine UA NEGATIVE (Negative); Specific Gravity Urine UA <=1.005 (1.000-1.035); Urobilinogen Urine UA 0.2 E.U./dL (0.2)
[2024-05-01 16:05] LABS: Bacteria Urine Many (>30); Culture Indicated Urine Specimen Cultured; RBC Urine None Seen (0-5/HPF); Squamous Epithelial Cell Urine None Seen (0-5/HPF); Urine Volume 10mL (spun); WBC Urine 1-5/HPF (0-5/HPF)
== END ==
LOC: LAB 15:01
PROVIDERS: Family Provider Family Medicine; PCP Family Medicine; Referring Provider Family Medicine; Visit Provider Family Medicine
DX: R30.0 Dysuria (principal); R35.0 Frequency of micturition; R82.90 Unspecified abnormal findings in urine
CPT/HCPCS: 36415; 81001; 87077; 87086

== ENCOUNTER → 2024-06-10 14:40 | Outpatient (CLI) | payer MEDICARE, SELFPAY ==
[2024-06-10 17:22] LABS: Appearance Urine UA CLEAR; Bilirubin Urine UA NEGATIVE (NEGATIVE); Color Urine UA YELLOW; Glucose Urine UA NEGATIVE (Negative); Ketones Urine UA NEGATIVE (NEGATIVE); Leukocyte Esterase Urine UA TRACE (NEGATIVE); Nitrite Urine UA NEGATIVE (Negative); Occult Blood Urine UA NEGATIVE (Negative); Protein Urine UA NEGATIVE (Negative); Urobilinogen Urine UA 0.2 E.U./dL (0.2)
[2024-06-10 17:31] LABS: Bacteria Urine Many (>30); Culture Indicated Urine Cult Not Indicated; RBC Urine None Seen (0-5/HPF); Squamous Epithelial Cell Urine 0-1 /HPF (0-5/HPF); Urine Volume 10mL (spun); WBC Urine 1-5/HPF (0-5/HPF)
== END ==
PROVIDERS: Family Provider Family Medicine; PCP Family Medicine; Referring Provider Family Medicine; Visit Provider Family Medicine
DX: N39.0 Urinary tract infection, site not specified (principal)
CPT/HCPCS: 81001

== ENCOUNTER → 2024-06-19 15:54 | Outpatient (CLI) | payer MEDICARE, SELFPAY | PROVIDERS: Family Provider Family Medicine; PCP Family Medicine; Visit Provider Family Medicine | DX: R82.90 Unspecified abnormal findings in urine (principal); R30.0 Dysuria; R33.9 Retention of urine, unspecified; Z87.440 Personal history of urinary (tract) infections | CPT/HCPCS: 87077; 87086; 87186 ==

== ENCOUNTER 2024-07-29 10:05 | Outpatient (CLI) | payer MEDICARE, SELFPAY ==
[2024-07-29] VITALS (9 sets, daily range): BP systolic 135–209; BP diastolic 60–93; PULSE 67–95; RESP 13–19; TEMP 37; O2SAT 93–100
--- NOTE | 2024-07-29 10:06 | DI.RAD.S_ITS ---
PROCEDURE: PAIN L/S TRANSFORAMINAL INJECT INDICATIONS: SPINAL STENOSIS COMPARISON: None. FINDINGS/IMPRESSION: Fluoroscopic spot filming was performed to verify placement of spinal needles overlying L4-5 level(s), as labeled on the films. Appropriate location(s) of the needle tip(s) was confirmed by injection of iodinated contrast. Dictated by: Natalee Dhaliwal M.D. on 07/29/2024 at 16:41 Approved by: Natalee Dhaliwal M.D. on 07/29/2024 at 16:42
[2024-07-29] MEDS: MIDAZOLAM 2 MG/2 ML VIAL IV (11:31)
[2024-07-29] MEDS: BETAMETHASONE 30 MG/5 ML MDV 12 MG INJ (11:37)
[2024-07-29] MEDS: BUPIVACAINE 0.25% (PF) VIAL 2 ML INJ (11:37)
[2024-07-29] MEDS: iopamidoL 15 ML VIAL 3 ML INJ (11:37)
[2024-07-29] MEDS: DEXAMETHASONE 10 MG/ML VIAL INJ (11:38)
--- NOTE | 2024-07-29 11:54 | P.PCN_ITS ---
Date/Time/Diagnoses Date of procedure: 07/29/24 Time of procedure: 11:54 Pre-procedure diagnosis: 1. FORAMINAL STENOSIS WITH LE SYMPTOMS Post-procedure diagnosis: same Procedure Notes Procedure: 1. FLUOROSCOPICALLY GUIDED CONTRAST CONTROLLED TRANSFORAMINAL EPIDURAL STEROID INJECTION - LEFT L4/5 Indications: Radha is referred by Dr. Mahoney for treatment of Foraminal Stenosis with Left LE Symptoms Physician: Froylan Castillo Total Fluoroscopy time (seconds): 7 Total sedation minutes: 12 Complications: none Procedure in detail & Post-procedure care: FINDINGS Foraminal Nerve Root Compression secondary to disc disease and facet hypertrophy DESCRIPTION OF PROCEDURE Following review of allergy and review of potential side effects and complications, including, but not necessarily limited to, infection, allergic reaction, local tissue breakdown, stroke, temporary or permanent nerve injury, paralysis, and possible , the patient indicated that the patient understood and agreed to proceed. An informed consent document was signed by the patient, witnessed by a nurse, and placed in the patient's chart. Additionally, other treatment options including medications, modalities, and physical therapy were reviewed with the patient. After review of previous anaesthesic history and IV conscious sedation the patient was deemed safe to proceed with today?s procedure with IV conscious sedation as ASA class II designation. Safety time-out was performed to confirm patient ID, procedure to be performed and site of procedure. IV sedation was accomplished with a combination of 2mg of Versed administered by the RN after DO order, titrated to patient comfort during the course of the procedure while the patient remained responsive to all verbal commands In the prone position following sterile prep and drape of the lumbar region, the left L4/5 posterior neuroforamen was identified fluoroscopically. The skin was anesthetized via a 25-gauge 1.5-inch needle with 1% lidocaine solution. At this point, a 25-gauge 3.5-inch spinal needle was atraumatically introduced and advanced under fluoroscopic guidance through the posterior left L4/5 neuroforamen to approximately the anterior aspect of the canal. Depth was confirmed on lateral view. Following negative aspiration, injection of approximately 1.5 cc of Isovue 200 under live fluoroscopy in the AP view confirmed excellent flow along the nerve root, into the epidural space without vascular or intrathecal uptake observed Radiological data, including multiple fluoroscopic views of the lumbosacral spine, reveal a spinal needle at the left L4/5 posterior neuroforamen. Subsequent views show flow of contrast material flowing superiorly and inferiorly along the nerve root confirming epidural flow. Subsequently, a test dose of 1.5 cc of 1% lidocaine solution was administered and patient was observed for two minutes for signs or symptoms of complications, including abdominal pain, shortness of breath, bilateral upper or lower extremity weakness, nausea and vomiting, prior to steroid injection. At this point, a total of 3cc or 10mg of dexamethasone and 12mg of betamethasone was injected without incident. The procedure tolerated the procedure well without signs or symptoms of complications prior to transfer to the recovery area continued monitoring without incident. The patient was then transferred to the recovery area where they were observed for an appropriate time after the injection. The patient reported a VAS score of 7 prior to the procedure and a post- procedure VAS of 0. POST OP INSTRUCTIONS The patient was provided a Pain Log to continue to record their response to the target-specific procedure prior to follow-up visit with their referring physician. Additionally, specific post-injection care instructions and a contact number to our office were provided if concerns arise regarding possible complications associated with the procedure are suspected.
== END 2024-07-29 12:11 | disposition home or self-care (01) ==
LOC: RAD 10:05
PROVIDERS: Family Provider Family Medicine; PCP Family Medicine; Referring Provider Physical Medicine & Rehabilitation; Visit Provider Physical Medicine & Rehabilitation
DX: M48.061 Spinal stenosis, lumbar region without neurogenic claudication (principal); M51.16 Intervertebral disc disorders with radiculopathy, lumbar region; M47.26 Other spondylosis with radiculopathy, lumbar region
CPT/HCPCS: 64483; 99152; J0702; J1100; J2250; J3490

== ENCOUNTER → 2024-08-11 08:26 | Outpatient (CLI) | payer MEDICARE, SELFPAY ==
[2024-08-11 09:20] LABS: Cholesterol 250 mg/dL (140-199); HDL Cholesterol 59 mg/dL (40-60); LDL Cholesterol Calculated 132 mg/dL (<100); Triglycerides 294 mg/dL (35-150)
[2024-08-11 09:50] LABS: TSH w/ Reflex to FT4 2.37 uIU/mL (0.47-4.68)
[2024-08-11 15:01] LABS: Hemoglobin A1C% w Est Avg Glu 5.3 % (4.0-6.0)
== END ==
PROVIDERS: Family Provider Family Medicine; PCP Family Medicine; Referring Provider Physician Assistant; Visit Provider Physician Assistant
DX: R73.01 Impaired fasting glucose (principal); E78.2 Mixed hyperlipidemia
CPT/HCPCS: 36415; 80061; 83036; 84443

== ENCOUNTER → 2024-08-18 16:23 | Outpatient (CLI) | payer MEDICARE, SELFPAY | PROVIDERS: Family Provider Family Medicine; PCP Family Medicine; Visit Provider Family Medicine | DX: R39.198 Other difficulties with micturition (principal); N39.0 Urinary tract infection, site not specified; R33.9 Retention of urine, unspecified | CPT/HCPCS: 87077; 87086; 87186 ==

== ENCOUNTER → 2024-08-26 15:42 | Outpatient (CLI) | payer MEDICARE, SELFPAY | PROVIDERS: Family Provider Family Medicine; PCP Family Medicine; Referring Provider Internal Medicine Critical Care Medicine; Visit Provider Internal Medicine Critical Care Medicine | DX: R06.09 Other forms of dyspnea (principal); R94.2 Abnormal results of pulmonary function studies | CPT/HCPCS: 94010; 94060; 94726; 94729 ==

== ENCOUNTER → 2024-09-09 | Outpatient (CLI) | payer MEDICARE, SELFPAY ==
--- NOTE | 2024-09-09 07:59 | DI.CT.S_ITS ---
PROCEDURE: CT CHEST HIGH RESOLUTION INDICATIONS: H/o restrictive lung disease, eval for ILD or diaphragm TECHNIQUE: Noncontrast 1.0 and 5.0 mm thick contiguous axial sections from the pulmonary apex to the posterior costophrenic angles, with 7 mm thick coronal and sagittal MIP reformats. 1 mm thick dynamic expiratory images acquired through the upper, mid, and lower lungs. 1.0 mm thick axial sections acquired from the aniyah to the posterior costophrenic angles in the prone end-inspiration position. For radiation dose reduction, the following was used: automated exposure control, adjustment of mA and/or kV according to patient size. COMPARISON: None. FINDINGS: Image quality: Diagnostic. Lower Neck: No enlarged lymph nodes. Thyroid: Thyroid is diminutive. Axillae: No enlarged lymph nodes. Chest Wall: Unremarkable. Bones: Unremarkable. Lungs and Pleura: No pneumothorax or pleural effusions. Very mild peripheral reticulation with subpleural sparing in the medial lower lobes. Very mild bronchiolectasis. 3 mm juxtapleural nodule in the medial left lower lobe, probably a benign intrapulmonary lymph node (series 3, image 197). Heart: Heart size is normal. No pericardial effusion. Thoracic Vessels: The aorta and pulmonary arteries demonstrate normal size. Mediastinum and Denia: No enlarged lymph nodes. Esophagus: No wall thickening. No hiatal hernia. Upper Abdomen: Visualized upper abdomen solid organs and bowel loops appear normal. IMPRESSION: Very mild peripheral reticulation in the lung bases, with subpleural sparing. No honeycombing. Mild bronchiolectasis. Findings may indicate interstitial lung disease, although this would be atypical in this age group. Other considerations arm senescent fibrosis, less likely CTD-ILD. Thyroid is diminutive, which may indicate hypothyroidism. Correlate with thyroid panel if this is a new possible diagnosis. Dictated by: Wenceslao Malave M.D. on 09/09/2024 at 11:59 Approved by: Wenceslao Malave M.D. on 09/09/2024 at 12:03
--- NOTE | 2024-09-09 08:11 | DI.ECHO.S_ITS ---
[facility]---------+ [facility] : : [address] [place] : : [id number] : : Phone: [phone] Echocardiogram Report + + :Name: CHARMAINE COCHRAN Study Date: 09/09/2024 Height: 61 in : :Hospital ReadingLocation: Weight: 140 lb : : Gender: Female BSA: 1.6 m2 : :: 1945 Age: 78 yrs BP: 129/72 mmHg: :Reason For Study: DYSPNEA : :Ordering Physician: JACQUELINE, : :LEIDY Ballard Performed By: Joan Graves : :Referring: LEIDY PHILLIPS : + + Interpretation Summary Top normal LV systolic function. LVEF is 65-70% Mild LVOT flow acceleration is noted. Normal RV size and function. No significant valvular pathology is noted. Other findings as below. No previous echo images are available for comparison. Procedure: A two-dimensional transthoracic echocardiogram with color flow and Doppler was performed. The study quality was technically difficult. There is no prior echocardiogram noted for this patient. The patient was in sinus rhythm with heart rates between 60-94 bpm during the exam. Left Ventricle: The left ventricle is normal in size and wall thickness. The ejection fraction is estimated to be 65-70%. Right Ventricle: The right ventricle is normal in size and function. Atria: The left atrial size is normal. Right atrial size is normal. There is no Doppler evidence for an interatrial shunt. Mitral Valve: The mitral valve leaflets appear to open well. There is no mitral valve stenosis. There is trace mitral regurgitation. Aortic Valve: The aortic valve is trileaflet. The aortic valve opens well. There is no aortic valve stenosis. No aortic regurgitation is present. Tricuspid Valve: The tricuspid valve leaflets are thin and pliable. There is mild tricuspid regurgitation. The right ventricular systolic pressure is estimated to be at least 33 mmHg based on an estimated right atrial pressure of 3 mm Hg. Pulmonic Valve: The pulmonic valve leaflets are thin and pliable; valve motion is normal. There is trace pulmonic regurgitation. Great Vessels: The aortic root is normal size. The dimensions of the ascending aorta are normal. The IVC is of normal diameter and collapses greater than 50% with a sniff. This suggests a low right atrial pressure of 3 mm Hg. Pericardium/ Pleura There is no pericardial effusion. There is an anterior echo-free space consistent with a fat pad. There is no pleural effusion. MMode/2D Measurements & Calculations LVIDd: 4.4 cm LVOT diam: 1.9 cm LVIDs: 2.7 cm Ao root diam: 2.7 cm FS: 38.8 % asc Aorta Diam: 2.7 cm IVSd: 0.81 cm Ao Arch Diam (Prox Trans): 2.6 cm LVPWd: 0.92 cm LV warren. diameter/BSA (cm/m^2): 2.7 LV sys. diameter/BSA (cm/m^2): 1.6 LA A2 area: 15.6 cm2 RA long axis: 4.1 cm LA A4 area: 14.1 cm2 RA area: 9.1 cm2 LA length (vol): 4.8 cm RA vol: 17.1 ml LA vol: 39.1 ml RA : 10.5 ml/m2 LA vol index: 24.1 ml/m2 IVC diam: 1.1 cm RVD1 (basal): 2.9 cm RVD2 (mid): 2.2 cm TAPSE: 1.8 cm Doppler Measurements & Calculations Ao V2 max: 181.1 cm/sec LVOT Max Stefano: 156.1 cm/sec Ao V2 mean: 122.6 cm/sec LV V1 max P.7 mmHg Ao max P.1 mmHg LV V1 VTI: 27.9 cm Ao mean P.7 mmHg BECKY(I,D): 2.2 cm2 Ao V2 VTI: 35.0 cm BECKY(V,D): 2.4 cm2 sev ratio: 0.80 BECKY indexed to BSA (cm^2/m^2): 1.4 MV E max stefano: 85.8 cm/sec TR max stefano: 271.8 cm/sec MV A max stefano: 118.4 cm/sec TR max P.5 mmHg MV E/A: 0.72 PA V2 max: 97.6 cm/sec Med Peak E' Stefano: 8.0 cm/sec PA V2 mean: 65.6 cm/sec E/E' med: 10.8 PA mean P.0 mmHg Lat Peak E' Stefano: 6.4 cm/sec PA pr(Accel): 20.8 mmHg E/E' lat: 13.4 E/e' average: 12.1 MV dec time: 0.16 sec MVA(VTI): 2.9 cm2 MV V2 mean: 86.7 cm/sec SV(LVOT): 78.6 ml MV mean P.4 mmHg MV V2 VTI: 27.3 cm Reading Physician:10:55 AM
== END ==
PROVIDERS: Family Provider Family Medicine; PCP Family Medicine; Referring Provider Internal Medicine Critical Care Medicine; Visit Provider Internal Medicine Critical Care Medicine
DX: I07.1 Rheumatic tricuspid insufficiency (principal); J98.4 Other disorders of lung; R06.09 Other forms of dyspnea; I10 Essential (primary) hypertension; J47.9 Bronchiectasis, uncomplicated
CPT/HCPCS: 71250; 93306

== ENCOUNTER → 2024-09-19 10:23 | Outpatient (CLI) | payer MEDICARE, SELFPAY ==
[2024-09-19 12:08] LABS: Appearance Urine UA SL CLOUDY; Bilirubin Urine UA NEGATIVE (NEGATIVE); Color Urine UA YELLOW; Glucose Urine UA NEGATIVE (Negative); Ketones Urine UA NEGATIVE (NEGATIVE); Leukocyte Esterase Urine UA TRACE (NEGATIVE); Nitrite Urine UA POSITIVE (Negative); Occult Blood Urine UA NEGATIVE (Negative); Protein Urine UA NEGATIVE (Negative); Urobilinogen Urine UA 0.2 E.U./dL (0.2)
[2024-09-19 12:22] LABS: Urine Volume 10mL (spun)
[2024-09-19 12:23] LABS: Bacteria Urine Moderate (10-30); Culture Indicated Urine Specimen Cultured; RBC Urine None Seen (0-5/HPF); Squamous Epithelial Cell Urine None Seen (0-5/HPF); WBC Urine 1-5/HPF (0-5/HPF)
== END ==
PROVIDERS: Family Provider Family Medicine; PCP Family Medicine; Visit Provider Urology
DX: R39.9 Unspecified symptoms and signs involving the genitourinary system (principal); N39.0 Urinary tract infection, site not specified
CPT/HCPCS: 81001; 87077; 87086; 87186

== ENCOUNTER → 2024-10-30 15:34 | Outpatient (CLI) | payer MEDICARE, SELFPAY ==
[2024-10-30 17:01] LABS: Vitamin D 25 Hydroxy (D3) 37.7 ng/mL (30.0-100.0)
[2024-10-30 17:15] LABS: TSH w/ Reflex to FT4 1.96 uIU/mL (0.47-4.68)
[2024-10-30 17:18] LABS: Ferritin 32 ng/mL (11-264)
== END ==
PROVIDERS: Family Provider Family Medicine; PCP Family Medicine; Referring Provider Family Medicine; Visit Provider Family Medicine
DX: R53.83 Other fatigue (principal); E03.9 Hypothyroidism, unspecified
CPT/HCPCS: 36415; 82306; 82728; 84443

== ENCOUNTER 2024-11-29 08:01 | Emergency (ER) | payer MEDICARE, SELFPAY ==
[2024-11-29] VITALS (8 sets, daily range): BP systolic 177–199; BP diastolic 79–91; PULSE 77–101; RESP 18; TEMP 36.6; O2SAT 92–97; BMI 27.3
--- NOTE | 2024-11-29 08:05 | DI.RAD.S_ITS ---
PROCEDURE: XR ELBOW RT MIN 3V INDICATIONS: fall TECHNIQUE: 3 views of the elbow were acquired. COMPARISON: [facility], CR, XR SHOULDER RT MIN 2V, 11/29/2024, 8:02. FINDINGS: Study limited by nonstandard positioning Bones: No fractures or dislocations. No suspicious bony lesions. Soft tissues: No large elbow joint effusion. No suspicious soft tissue calcifications. IMPRESSION: Limited plain film study, without a displaced fracture seen. Dictated by: Joon De Leon M.D. on 11/29/2024 at 8:00 Approved by: Joon De Leon M.D. on 11/29/2024 at 8:00
--- NOTE | 2024-11-29 08:05 | DI.RAD.S_ITS ---
PROCEDURE: XR SHOULDER RT MIN 2V INDICATIONS: fall TECHNIQUE: 3 views of the shoulder were acquired. COMPARISON: [facility], CR, XR ELBOW RT MIN 3V, 11/29/2024, 8:02. [facility], CT, CT CHEST HIGH RESOLUTION, 09/09/2024, 8:03. FINDINGS: Bones: Comminuted, moderately displaced fracture lines can be seen involving the right humeral head and neck. No glenohumeral dislocation can be seen. No clavicle fracture is seen. The visualized ribs appear intact. Age-appropriate bony degenerative changes are seen. Soft tissues: No suspicious soft tissue calcifications. The visualized lung demonstrates an unremarkable appearance. IMPRESSION: Moderately displaced, comminuted fracture lines of the right humeral head and neck. Dictated by: Joon De Leon M.D. on 11/29/2024 at 7:58 Approved by: Joon De Leon M.D. on 11/29/2024 at 7:59
--- NOTE | 2024-11-29 08:07 | ED.FALL ---
HPI - Fall General Chief Complaint: Fall Stated Complaint: GLF Time Seen by Provider: 11/29/24 08:05 History of Present Illness HPI Narrative: Patient is a 78-year-old female history of hypertension hypothyroid presenting today after mechanical ground fall. Says she tripped on her shoes mainly on her right shoulder. May have hit her head but not on anticoagulation or antiplatelet medication. No neck pain no hip pain no rib pain really only complaining of at right shoulder. No numbness or tingling. She was see fentanyl with EMS prior to arrival. Right-hand dominant. Related Data Home Medications Medication Instructions Recorded Confirmed ascorbic acid (vitamin C) 500 mg 500 mg PO DAILY 04/03/19 10/27/24 capsule cell salts 5 each PO DAILY 04/03/19 10/27/24 cholecalciferol (vitamin D3) 25 1,000 unit PO DAILY 04/03/19 10/27/24 mcg (1,000 unit) capsule mecobalamin (vitamin B12) 1 tab PO DAILY 04/03/19 10/27/24 clobetasol 0.05 % topical cream 1 applic topical BEDTIME 06/20/23 10/27/24 colesevelam 625 mg tablet (WelChol) 1,250 mg PO ONCE PRN 02/13/24 10/27/24 Previous Rx's Medication Instructions Recorded atenolol 25 mg tablet 25 mg PO DAILY #90 tabs 12/11/23 estradiol 0.01% (0.1 mg/gram) 2 g vaginal DAILY #42.5 grams 02/25/24 vaginal cream omeprazole 20 mg capsule,delayed 20 mg PO DAILY #90 caps 04/10/24 release estradiol 0.1 mg/24 hr weekly 1 patch transdermal QWEEK #12 ea 06/24/24 transdermal patch celecoxib 100 mg capsule (Celebrex) 200 mg (2 x 100 mg) PO DAILY #30 10/27/24 caps levothyroxine 100 mcg tablet 100 mcg PO QAM #90 tabs 11/24/24 hydrocodone 5 mg-acetaminophen 325 1 tab PO Q6H PRN pain #15 tabs 11/29/24 mg tablet Allergies Allergy/AdvReac Type Severity Reaction Status Date / Time Penicillins Allergy Mild RASH Verified 10/27/24 15:52 Patient History Medical History Facet arthropathy, lumbar Cystocele, unspecified Urinary hesitancy Onychomycosis (01/21/15) Sciatica (12/16/14) Knee effusion, right Right knee pain Surgical History Status post delivery History of bladder suspension procedure Status post hysterectomy Status post appendectomy Family History Brother Age: 81 Diabetes mellitus Hypertension Hyperlipidemia Sister Age: 75 Blind Father Cancer Mother Blood disease Grandfather Stroke Grandmother Diabetes mellitus Aunt Seizure disorder Social History marital status: number of children: 2 lives independently: Yes housing: house education level: college occupational status: previously employed leisure activities: exercise seatbelt use: always Smoking Status: Never smoker alcohol intake: current substance use type: does not use during the past year weight has: remained stable caffeine: Yes Type(s) of exercise: aerobic frequency: 3-4 times per week duration: > 90 minutes/day Exam Initial Vital Signs Initial Vital Signs: Vital Signs Pulse Rate 101 H 11/29/24 08:05 Pulse Oximetry 97 11/29/24 08:05 GENERAL: [Well-appearing, well-nourished] and in [no acute] distress. HEENT: Head atraumatic,EOMI, pupils reactive, face symmetric, [moist] mucous membranes [EARS:] [Tympanic membranes visualized, no erythema or bulging, no hemotympanum] [PHARYNX:] [No erythema, no tonsillar exudate, no cervical lymphadenopathy] CARDIOVASCULAR: Regular rate and rhythm without murmurs, rubs or gallops. RESPIRATORY: Breath sounds equal bilaterally, no wheezes rales or rhonchi. ABDOMEN: Soft, nontender. Normoactive bowel sounds all 4 quadrants. No guarding or rebound. [RECTAL:] [Hemoccult-positive, no hemorrhoids, nontender] : No CVA tenderness EXTREMITIES: Normal range of motion, no clubbing or edema. Neurovascularly intact NEUROLOGICAL: Alert and oriented x4.Normal gait and speech. Cranial nerves II through XII grossly intact. [Good [id number], good [id number], strength equal bilaterally, no dysarthria or aphasia, sensation in tact to soft touch bilaterally, no visual changes, no facial droop] SKIN: Warm, dry, no laceration, no petechiae, no rashes or lesions. Course Orders Ordered: ED Orders 11/29/24 08:05 XR elbow RT min 3V Stat XR shoulder RT 2+ views Stat Discontinued Medications Morphine Sulfate (Morphine 2 Mg/Ml Inj) 2 mg IV NOW ONE Stop: 11/29/24 08:33 Last Admin: 11/29/24 08:43 Dose: 2 mg Documented By: NIKA Vital Signs Vital signs: Vital Signs - 8 hr 11/29/24 08:05 11/29/24 08:06 11/29/24 08:06 Temperature 97.9 F Pulse Rate 101 H 96 H Respiratory Rate 18 Blood Pressure 199/91 H 199/91 H Pulse Oximetry 97 93 Oxygen Delivery Method Room Air 11/29/24 08:06 11/29/24 08:26 11/29/24 08:26 Temperature Pulse Rate 98 H 89 Respiratory Rate Blood Pressure 195/85 H Pulse Oximetry 96 94 Oxygen Delivery Method 11/29/24 08:28 11/29/24 08:28 11/29/24 08:30 Temperature Pulse Rate 86 87 Respiratory Rate Blood Pressure 187/86 H Pulse Oximetry 92 95 Oxygen Delivery Method 11/29/24 08:30 11/29/24 09:00 11/29/24 09:00 Temperature Pulse Rate 81 Respiratory Rate Blood Pressure 187/86 H 177/83 H Pulse Oximetry 95 Oxygen Delivery Method 11/29/24 09:30 11/29/24 09:31 11/29/24 09:31 Temperature Pulse Rate 77 77 Respiratory Rate Blood Pressure 199/79 H Pulse Oximetry 97 95 Oxygen Delivery Method MDM - Fall Imaging Data Extremity x-ray #1: Radiologist's Impression: PROCEDURE: XR SHOULDER RT MIN 2V INDICATIONS: fall TECHNIQUE: 3 views of the shoulder were acquired. COMPARISON: [facility], CR, XR ELBOW RT MIN 3V, 11/29/2024, 8:02. [facility], CT, CT CHEST HIGH RESOLUTION, 09/09/2024, 8:03. FINDINGS: Bones: Comminuted, moderately displaced fracture lines can be seen involving the right humeral head and neck. No glenohumeral dislocation can be seen. No clavicle fracture is seen. The visualized ribs appear intact. Age-appropriate bony degenerative changes are seen. Soft tissues: No suspicious soft tissue calcifications. The visualized lung demonstrates an unremarkable appearance. IMPRESSION: Moderately displaced, comminuted fracture lines of the right humeral head and neck. Dictated by: Jono De Leon M.D. on 11/29/2024 at 7:58 Extremity x-ray #2: Radiologist's Impression: PROCEDURE: XR ELBOW RT MIN 3V INDICATIONS: fall TECHNIQUE: 3 views of the elbow were acquired. COMPARISON: [facility], , XR SHOULDER RT MIN 2V, 11/29/2024, 8:02. FINDINGS: Study limited by nonstandard positioning Bones: No fractures or dislocations. No suspicious bony lesions. Soft tissues: No large elbow joint effusion. No suspicious soft tissue calcifications. IMPRESSION: Limited plain film study, without a displaced fracture seen. Dictated by: Joon De Leon M.D. on 11/29/2024 at 8:00 [facility] Narrative Medical decision making narrative: Patient 78-year-old female presenting today with a right shoulder pain after mechanical ground level fall. No head injury no nausea or vomiting. No need for head imaging at this time. She was found to have right proximal humeral head fracture. Given morphine here in the ED for pain. X-ray of elbow is negative. Sling placed by nursing staff. Discharge Plan Departure Patient Disposition: Home Clinical Impression: Closed fracture of head of right humerus Instructions: DI for Shoulder Fracture Activity Restrictions/Additional Instructions: *You have been diagnosed with shoulder fracture *What to do: At this time keep arm in sling at all times. You will need to follow up with Orthopedics. You may find that you need to sit up while sleeping with lots of pillows. May ice 20-30 minutes at a time as needed *Continue to take medications as directed [place] 1 tablet every 6 hours as needed for severe pain, this has Tylenol in it do not exceed more than 1000 mg of Tylenol at a time Tylenol 650 mg every 4-6 hours if needed for [id number] *Follow up with your primary care provider in 2-3 days or call [phone] Follow up with [facility] *Return to ER if you should have increasing pain numbness tingling weakness or any new, worsening or concerning symptoms CONTROLLED SUBSTANCE DISCHARGE (Narcotoic/benzodiazepine/Flexeril/Phenergan) 1. You have been prescribed narcotic medications, it does have acetaminophen/Tylenol/paracetamol in it, DO NOT TAKE MORE THAN 4,00mg in 24 hours of Tylenol. TRAMADOL DOES NOT CONTAIN TYLENOL 2. Please understand that we cannot provide further refills of narcotics, benzodiazepines or controlled substances through the ED and her pain management will need to be through your provider. 3. While on these medications you cannot drive or operate heavy machinery. 4. You cannot sign legal documents or perform any duties such as this. 5. As long as you're taking opiate pain medications he should also be taking a stool softener such as Colace, Dulcolax, MiraLAX or prune juice, to help avoid constipation. Prescriptions: New hydrocodone-acetaminophen 5-325 mg tablet 1 tab PO Q6H PRN (Reason: pain) Qty: 15 0RF No Action atenolol 25 mg tablet 25 mg PO DAILY Qty: 90 3RF estradiol 0.01 % (0.1 mg/gram) cream 2 g vaginal DAILY Qty: 42.5 1RF omeprazole 20 mg capsule,delayed release(DR/EC) 20 mg PO DAILY Qty: 90 3RF estradiol 0.1 mg/24 hr patch weekly 1 patch transdermal QWEEK Qty: 12 3RF levothyroxine 100 mcg tablet 100 mcg PO QAM Qty: 90 3RF clobetasol 0.05 % cream 1 applic topical BEDTIME Rx Instructions: One application at bedtime for 14 days then twice weekly thereafter celecoxib [Celebrex] 100 mg capsule 200 mg PO DAILY Qty: 30 2RF colesevelam [WelChol] 625 mg tablet 1,250 mg PO ONCE PRN Patient Comments: up to 6 a day ascorbic acid (vitamin C) 500 mg capsule 500 mg PO DAILY cholecalciferol (vitamin D3) 1,000 unit capsule 1,000 unit PO DAILY mecobalamin (vitamin B12) 1 tab PO DAILY cell salts 5 each PO DAILY Referrals: [facility] [Provider Group] Clark Mahoney MD [Primary Care Provider] - Stand Alone Forms: Patient Portal/API/Survey
[2024-11-29] MEDS: MORPHINE 2 MG/ML INJ IV (08:43)
== END 2024-11-29 09:50 | disposition home or self-care (01) ==
PROVIDERS: Emergency Provider Emergency Medicine; Family Provider Family Medicine; PCP Family Medicine
DX: S42.291A Other displaced fracture of upper end of right humerus, initial encounter for closed fracture (principal); W01.0XXA Fall on same level from slipping, tripping and stumbling without subsequent striking against object, initial encounter
CPT/HCPCS: 73030; 73080; 96374; 99284; J2270

== ENCOUNTER → 2024-12-02 10:34 | Outpatient (CLI) | payer MEDICARE, SELFPAY ==
--- NOTE | 2024-12-02 10:36 | DI.CT.S_ITS ---
PROCEDURE: CT SHOULDER RIGHT WITHOUT CON INDICATIONS: Fracture TECHNIQUE: Noncontrast 0.75 mm thick sections acquired from the acromioclavicular joint to the inferior scapula, with coronal and sagittal reformatting. COMPARISON: [facility], CR, XR SHOULDER RT MIN 2V, 11/29/2024, 8:02. FINDINGS: Image quality: Excellent. Bones: There is an impacted, comminuted, moderately displaced fracture of the humeral head and neck, as before. Soft tissues: Soft tissues are within normal limits. Visualized lung parenchyma within normal limits. IMPRESSION: No significant change in proximal humeral fracture. Dictated by: Glenny Cross M.D. on 12/02/2024 at 15:09 Approved by: Glenny Cross M.D. on 12/02/2024 at 15:11
== END ==
PROVIDERS: Family Provider Family Medicine; PCP Family Medicine; Referring Provider Orthopaedic Surgery; Visit Provider Orthopaedic Surgery
DX: S42.291A Other displaced fracture of upper end of right humerus, initial encounter for closed fracture (principal); X58.XXXA Exposure to other specified factors, initial encounter
CPT/HCPCS: 73200

== ENCOUNTER → 2024-12-05 09:32 | Outpatient (CLI) | payer MEDICARE, SELFPAY ==
[2024-12-05 09:45] LABS: Appearance Urine UA CLEAR; Bilirubin Urine UA NEGATIVE (NEGATIVE); Color Urine UA YELLOW; Glucose Urine UA NEGATIVE (Negative); Ketones Urine UA NEGATIVE (NEGATIVE); Leukocyte Esterase Urine UA 2+ (NEGATIVE); Nitrite Urine UA POSITIVE (Negative); Occult Blood Urine UA NEGATIVE (Negative); Protein Urine UA NEGATIVE (Negative); Specific Gravity Urine UA <=1.005 (1.000-1.035); Urobilinogen Urine UA 0.2 E.U./dL (0.2)
[2024-12-05 09:52] LABS: Bacteria Urine Moderate (10-30); Culture Indicated Urine Specimen Cultured; RBC Urine None Seen (0-5/HPF); Squamous Epithelial Cell Urine 0-1 /HPF (0-5/HPF); Urine Volume 10mL (spun); WBC Urine 5-10/HPF (0-5/HPF)
== END ==
PROVIDERS: Family Provider Family Medicine; PCP Family Medicine; Referring Provider Urology; Visit Provider Urology
DX: N39.0 Urinary tract infection, site not specified (principal)
CPT/HCPCS: 81001; 87077; 87086; 87186

== ENCOUNTER → 2024-12-11 10:49 | Outpatient (CLI) | payer MEDICARE, SELFPAY ==
--- NOTE | 2024-12-11 10:50 | DI.RAD.S_ITS ---
PROCEDURE: XR HAND RT MIN 3V INDICATIONS: r hand px post fall TECHNIQUE: 3 views of the hand(s) acquired. COMPARISON: None. FINDINGS: Bones: No fractures or dislocations. Severe 1st CMC joint degeneration. Mild diffuse interphalangeal joint degeneration. Decreased osseous mineralization. Carpal bones are normally aligned. No suspicious bony lesions. Soft tissues: No suspicious soft tissue calcifications. IMPRESSION: No acute osseous abnormalities. Degenerative changes throughout the hand, severe involving the 1st CMC joint. Dictated by: Angelo Caceres M.D. on 12/11/2024 at 13:05 Approved by: Angelo Caceres M.D. on 12/11/2024 at 13:06
== END ==
PROVIDERS: Family Provider Family Medicine; PCP Family Medicine; Referring Provider Physician Assistant; Visit Provider Physician Assistant
DX: M18.11 Unilateral primary osteoarthritis of first carpometacarpal joint, right hand (principal); M19.041 Primary osteoarthritis, right hand; M79.641 Pain in right hand
CPT/HCPCS: 73130

== ENCOUNTER → 2025-02-09 14:28 | Outpatient (CLI) | payer MEDICARE, SELFPAY ==
[2025-02-09 15:37] LABS: Appearance Urine UA CLEAR; Bilirubin Urine UA NEGATIVE (NEGATIVE); Color Urine UA YELLOW; Glucose Urine UA NEGATIVE (Negative); Ketones Urine UA TRACE (NEGATIVE); Leukocyte Esterase Urine UA NEGATIVE (NEGATIVE); Nitrite Urine UA NEGATIVE (Negative); Occult Blood Urine UA NEGATIVE (Negative); Protein Urine UA NEGATIVE (Negative); Urobilinogen Urine UA 0.2 E.U./dL (0.2)
[2025-02-09 15:44] LABS: Bacteria Urine Many (>30); Calcium Oxalate Crystals Urine Occasional; Culture Indicated Urine Cult Not Indicated; RBC Urine 0-1/HPF (0-5/HPF); Squamous Epithelial Cell Urine 1-5 /HPF (0-5/HPF); Urine Volume 10mL (spun); WBC Urine 0-1/HPF (0-5/HPF)
== END ==
PROVIDERS: Family Provider Family Medicine; PCP Family Medicine; Visit Provider Urology
DX: N39.0 Urinary tract infection, site not specified (principal)
CPT/HCPCS: 81001

== ENCOUNTER → 2025-02-17 14:43 | Outpatient (CLI) | payer MEDICARE, SELFPAY ==
[2025-02-17 16:26] LABS: TSH w/ Reflex to FT4 0.83 uIU/mL (0.47-4.68)
== END ==
PROVIDERS: Family Provider Family Medicine; PCP Family Medicine; Referring Provider Family Medicine; Visit Provider Family Medicine
DX: E03.9 Hypothyroidism, unspecified (principal)
CPT/HCPCS: 84443

== ENCOUNTER → 2025-03-03 15:22 | Outpatient (CLI) | payer MEDICARE, SELFPAY ==
--- NOTE | 2025-03-03 15:23 | DI.RAD.S_ITS ---
PROCEDURE: XR HAND LT MIN 3V INDICATIONS: hand pain TECHNIQUE: 3 views of the hand(s) acquired. COMPARISON: [facility], CR, XR HAND RT MIN 3V, 12/11/2024, 10:08. FINDINGS: Bones: There are no osseous abnormalities Joints: Mild STT and moderate 1st CMC degeneration noted. Severe degeneration of the 1st 2nd 3rd 4th and 5th DIP and moderate degeneration in the PIP and mild degeneration in the MCP joints noted Soft tissues: No soft tissue abnormality. IMPRESSION: Degeneration Dictated by: Odilon Granados M.D. on 03/04/2025 at 11:56 Approved by: Odilon Granados M.D. on 03/04/2025 at 11:57
== END ==
PROVIDERS: PCP Family Medicine; Referring Provider Family Medicine; Visit Provider Family Medicine
DX: M19.042 Primary osteoarthritis, left hand (principal); M18.12 Unilateral primary osteoarthritis of first carpometacarpal joint, left hand
CPT/HCPCS: 73130

== ENCOUNTER → 2025-03-13 09:34 | Outpatient (CLI) | payer MEDICARE, SELFPAY ==
--- NOTE | 2025-03-13 09:35 | DI.RAD.S_ITS ---
PROCEDURE: XR DEXA AXIAL SKELETON INDICATIONS: osteopenia COMPARISON: [facility], , XR DEXA AXIAL SKELETON, 12/28/2021, 11:42. FINDINGS: Lumbar Spine: L1-L4. Bone mineral density 0.897 g/cm2, T score -1.4. Left Femoral Neck: Bone mineral density 0.672 g/cm2, T score -1.6. Left Hip: Bone mineral density 0.824 g/cm2, T score -1.0. Fracture Risk Calculation (when applicable): 10-year fracture risk of a major osteoporotic fracture 14 percent and of a hip fracture 3.5 percent. (T score greater or equal to -1.0 to: NORMAL) (T score from -1.1 to -2.4: OSTEOPENIA) (T score less than or equal to -2.5: OSTEOPOROSIS) IMPRESSION: Osteopenia. Follow-up guidelines as follows: Osteoporosis: Consider a repeat DEXA and Vertebral Fracture Assessment (VFA) exam in 2 years or sooner if medically necessary, to reassess this patient's status. Osteopenia: Consider a repeat DEXA in 2-3 years to reassess this patient's status, or if there is a new clinical indication. Normal: Consider a repeat DEXA in 5 years or sooner, or if there is a new clinical indication. All treatment decisions require clinical judgment and consideration of individual patient factors, including patient preferences, comorbidities, previous drug use, risk factors not captured in the FRAX model (e.g., frailty, falls, vitamin D deficiency, increased bone turnover, interval significant decline in bone density ) and possible under- or over-estimation of fracture risk by FRAX. In addition, the NOF Guide recommends that FDA-approved medical therapies be considered in postmenopausal women and men age >= 50 years with a: * Hip or vertebral (clinical or morphometric) fracture * T-score of <=-2.5 at the spine or hip * Ten-year fracture probability by FRAX of >= 3% for hip fracture or >=20% for major osteoporotic fracture. Dictated by: Edgar Becker M.D. on 03/14/2025 at 14:42 Approved by: Edgar Becker M.D. on 03/14/2025 at 14:43
== END ==
PROVIDERS: PCP Family Medicine; Referring Provider Family Medicine; Visit Provider Family Medicine
DX: M81.0 Age-related osteoporosis without current pathological fracture (principal); S42.291A Other displaced fracture of upper end of right humerus, initial encounter for closed fracture; Z78.0 Asymptomatic menopausal state
CPT/HCPCS: 77080

== ENCOUNTER → 2025-05-10 09:12 | Outpatient (CLI) | payer MEDICARE, SELFPAY | PROVIDERS: PCP Family Medicine; Visit Provider Registered Nurse | DX: R30.0 Dysuria (principal) | CPT/HCPCS: 87077; 87086 ==

== ENCOUNTER → 2025-05-21 15:42 | Outpatient (CLI) | payer MEDICARE, SELFPAY ==
[2025-05-21 18:16] LABS: Appearance Urine UA CLEAR; Bilirubin Urine UA NEGATIVE (NEGATIVE); Color Urine UA YELLOW; Glucose Urine UA NEGATIVE (Negative); Ketones Urine UA NEGATIVE (NEGATIVE); Leukocyte Esterase Urine UA NEGATIVE (NEGATIVE); Nitrite Urine UA NEGATIVE (Negative); Occult Blood Urine UA NEGATIVE (Negative); Protein Urine UA NEGATIVE (Negative); Specific Gravity Urine UA 1.015 (1.000-1.035); Urobilinogen Urine UA 0.2 E.U./dL (0.2)
[2025-05-21 18:59] LABS: pH Urine UA 5.5 (4.5-8.0)
[2025-05-21 19:43] LABS: Culture Indicated Urine Cult Not Indicated
== END ==
PROVIDERS: PCP Family Medicine; Referring Provider Family Medicine; Visit Provider Family Medicine
DX: N39.0 Urinary tract infection, site not specified (principal)
CPT/HCPCS: 36415; 81001

== ENCOUNTER → 2025-06-10 14:44 | Outpatient (CLI) | payer MEDICARE, SELFPAY | PROVIDERS: PCP Family Medicine; Visit Provider Physician Assistant Medical | DX: R30.0 Dysuria (principal) | CPT/HCPCS: 87086 ==

== ENCOUNTER 2025-07-17 13:24 | Emergency (ER) | payer MEDICARE, SELFPAY ==
[2025-07-17 14:21] VITALS: BP 194/86; PULSE 88; RESP 18; TEMP 37.2; O2SAT 99; BMI 27.5
--- NOTE | 2025-07-17 15:28 | ED_ITS ---
HPI - Extremity Injury (Lower) General Chief Complaint: Extremity Injury, Lower Stated Complaint: Left leg intermittent intense pain past 6 days. Time Seen by Provider: 07/17/25 15:21 Source: patient Mode of arrival: Ambulatory History of Present Illness HPI Narrative: Patient here for medial upper calf pain and medial thigh pain on the left-hand side. No chest pain or shortness of breath. No prior history of blood clots in legs or lungs. Patient did return from [place] last Sunday. She denies any strain or stress to the legs while vacationing. Since then she has had this discomfort that is constant and worse with weight-bearing. No prior surgery to this lower extremity or joints. Thigh to toes exposed. Negative practice negative Homans test no palpable cords. Leg and foot warm soft pink strong pedal pulse brisk cap refills light touch intact to foot and toes. Patient denies any back pain Related Data Home Medications ?Medication ?Instructions ?Recorded ?Confirmed ascorbic acid (vitamin C) 500 mg 500 mg PO DAILY 04/0306/10/25 capsule cell salts 5 each PO DAILY 04/03/19 cholecalciferol (vitamin D3) 25 1,000 unit PO DAILY 06/10/25 mcg (1,000 unit) capsule mecobalamin (vitamin B12) 1 tab PO DAILY 04/03/1905/21 clobetasol 0.05 % topical cream 1 applic topical BEDTI ME 06/20/23 06/10/25 colesevelam 625 mg tablet (WelChol) 1,250 mg PO ONCE P RN 02/13/24 06/10/25 d-mannose 500 mg capsule cap PO To prevent UTIs 12/0306/10/25 Previous Rx's ?Medication ?Instructions ?Recorded levothyroxine 100 mcg tablet 100 mcg PO QAM #90 tabs 0 11/24/24 atenolol 25 mg tablet 25 mg PO DAILY #90 tabs 11/18 04/13 estradiol 0.01% (0.1 mg/gram) 2 g vaginal DAILY #42.5 grams 04/07/25 vaginal cream omeprazole 20 mg capsule,delayed 20 mg PO DAILY #90 ca ps 04/07/25 release celecoxib 100 mg capsule 200 mg (2 x 100 mg) PO .QD # 60 caps 04/27/25 estradiol 0.1 mg/24 hr weekly 1 patch topical QWEEK #1 2 ea 05/14/25 transdermal patch Allergies Allergy/AdvReac Type Severity Reaction Status Date / Time Penicillins Allergy Mild RASH Verified 07/17/25 14:21 milk protein Allergy Uncoded 06/10/25 14:53 Review of Systems Review of Systems Narrative: GENERAL: Negative chills, fatigue, malaise, fever, sweats. HEENT: Negative sinus pain, ear pain, sore throat RESPIRATORY: Negative dyspnea, cough CARDIOVASCULAR: Negative chest pain, palpitations GASTROINTESTINAL: Negative vomiting, nausea, abdominal pain : Negative dysuria, frequency, hematuria MUSCULOSKELETAL: Positive muscle or bony pain SKIN: Negative rash, skin lesions NEUROLOGIC: Negative weakness, numbness ROS Unobtainable: All systems reviewed & are unremarkable except as noted in HPI and below Patient History Medical History Facet arthropathy, lumbar Cystocele, unspecified Urinary hesitancy Onychomycosis (01/21/15) Sciatica (12/16/14) Knee effusion, right Right knee pain Surgical History Status post delivery History of bladder suspension procedure Status post hysterectomy Status post appendectomy Family History Brother Age: 81 Diabetes mellitus Hypertension Hyperlipidemia Sister Age: 75 Blind Father Cancer Mother Blood disease Grandfather Stroke Grandmother Diabetes mellitus Aunt Seizure disorder Social History marital status: number of children: 2 lives independently: Yes housing: house education level: college occupational status: previously employed leisure activities: exercise seatbelt use: always alcohol intake: current substance use type: does not use during the past year weight has: remained stable caffeine: Yes Type(s) of exercise: aerobic frequency: 3-4 times per week duration: > 90 minutes/day Smoking Status: Never smoker Exam Narrative Exam Narrative: GENERAL: in no distress, not toxic not dyspneic HEAD: Normocephalic. EYES: Pupils equal round EXTREMITIES: No gross deformities. Thigh to toes exposed. Negative practice negative Homans test no palpable cords. Leg and foot warm soft pink strong pedal pulse brisk cap refills light touch intact to foot and toes. NEURO: AOx4. Clear speech SKIN: Warm and dry PSYCH: Not anxious, is cooperative Initial Vital Signs Initial Vital Signs: Vital Signs Temperature 98.9 F 07/17/25 14:21 Pulse Rate 88 07/17/25 14:21 Respiratory Rate 18 07/17/25 14:21 Blood Pressure 194/86 H 07/17/25 14:21 Pulse Oximetry 99 07/17/25 14:21 Oxygen Delivery Method Room Air 07/17/25 14:21 Course Orders Ordered: ED Orders 07/17/25 15:28 US periph venous low extrem lt Stat Vital Signs Vital signs: Vital Signs - 8 hr 07/17/25 14:21 07/17/25 16:18 Temperature 98.9 F Pulse Rate 88 72 Respiratory Rate 18 18 Blood Pressure 194/86 H 190/75 H Pulse Oximetry 99 96 Oxygen Delivery Method Room Air Room Air MDM - Extremity Injury (Lower) Imaging Data US - DVT: Radiologist's Impression: [address] [address] Ultrasound Report Signed Patient: Radha Buchanan MR#: [id number] : 1945 Acct:[id number] Age/Sex: 79 / F Date of Service: 07/17/25 Loc: ED Accession Number: [id number] Procedure: US periph venous low extrem lt Ordering Provider: Dex Martin MD PROCEDURE: US PERIPH VENOUS LOW EXTREM LT INDICATIONS: Leg/calf pain TECHNIQUE: Real-time imaging, as well as color and pulse Doppler interrogation, were performed of the lower extremity deep veins from the inguinal ligament to the popliteal fossa, with documentation of the visualized calf veins. COMPARISON: None. FINDINGS: The common femoral, femoral, popliteal, and the visualized calf veins are normally compressible, and free of intraluminal thrombus. Color and pulse Doppler demonstrate normal phasic intraluminal flow. There is normal augmentation response to distal compression maneuver. IMPRESSION: Negative left lower extremity duplex venous ultrasound for DVT. Dictated by: Schuyler Gayle M.D. on 07/17/2025 at 15:51 Approved by: Schuyler Gayle M.D. on 07/17/2025 at 15:53 [facility] Narrative Medical decision making narrative: Patient here for medial upper calf pain and medial thigh pain on the left-hand side. No chest pain or shortness of breath. No prior history of blood clots in legs or lungs. Patient did return from [place] last Sunday. She denies any strain or stress to the legs while vacationing. Since then she has had this discomfort that is constant and worse with weight-bearing. No prior surgery to this lower extremity or joints. Thigh to toes exposed. Negative Flores test negative Homans test no palpable cords. Leg and foot warm soft pink strong pedal pulse brisk cap refills light touch intact to foot and toes. Patient denies any back pain MDM After history and exam, exam is reassuring. No blood work indicated at this dino e. Ultrasound of the leg will be ordered, no x-rays indicated this time. No chest complaints. Differential considered: Includes but not limited to DVT SVT tendinitis muscle strain Hardy's cyst Medical records reviewed: No recent visit for this complaint Imaging studies independently reviewed: Ultrasound left leg no DVT Re-evaluations: 4:02 p.m.. Review with patient results. Exam and imaging studies reassuring. No blurred x-ray indicated she agrees. Likely muscular/tendinous pain, she is comfortable with taking ibuprofen or Tylenol at home for this. We will see family doctor next week for re-evaluation and possible physical therapy if not improving. Return precautions reviewed. She desires discharge home. at bedside, she does have chronic back pain. I did review that this could be lumbar radiculopathy Discussion: Appropriate for discharge home. Exam is reassuring. Return precautions reviewed with patient. No blood work or x-ray indicated at this dino e. Pain is controlled. She desires discharge home. Blood pressure noted but patient is asymptomatic. Patient is on blood pressure medications at home. Diagnosis: Left leg pain Discharge Plan Departure Patient Disposition: Home Clinical Impression: Acute pain of left lower extremity Instructions: DI for Leg Pain, DI for Lumbar Radiculopathy Activity Restrictions/Additional Instructions: Your exam and ultrasound imaging is reassuring. No blood clot was seen on the ultrasound. This is likely muscular/tendinous pain causing your symptoms. Please see your family doctor next week for re-evaluation and possible physical therapy if not improving. May continue Tylenol or ibuprofen for pain. Return if worse if any questions or concerns Prescriptions: No Action levothyroxine 100 mcg tablet 100 mcg PO QAM Qty: 90 3RF atenolol 25 mg tablet 25 mg PO DAILY Qty: 90 3RF omeprazole 20 mg capsule,delayed release(DR/EC) 20 mg PO DAILY Qty: 90 3RF estradiol 0.01 % (0.1 mg/gram) cream 2 g vaginal DAILY Qty: 42.5 3RF celecoxib 100 mg capsule 200 mg PO .QD Qty: 60 3RF estradiol 0.1 mg/24 hr patch weekly 1 patch topical QWEEK Qty: 12 3RF clobetasol 0.05 % cream 1 applic topical BEDTIME Rx Instructions: One application at bedtime for 14 days then twice weekly thereafter d-mannose 500 mg capsule PO colesevelam [WelChol] 625 mg tablet 1,250 mg PO ONCE PRN Patient Comments: up to 6 a day ascorbic acid (vitamin C) 500 mg capsule 500 mg PO DAILY cholecalciferol (vitamin D3) 1,000 unit capsule 1,000 unit PO DAILY mecobalamin (vitamin B12) 1 tab PO DAILY cell salts 5 each PO DAILY Referrals: Clark Mahoney MD [Primary Care Provider, Family Practice] Stand Alone Forms: Patient Portal/API
[2025-07-17 16:18] VITALS: BP 190/75; PULSE 72; RESP 18; O2SAT 96
== END 2025-07-17 16:18 | disposition home or self-care (01) ==
PROVIDERS: Emergency Provider Emergency Medicine; PCP Family Medicine
DX: M79.652 Pain in left thigh (principal)
CPT/HCPCS: 93971; 99281; 99283

== ENCOUNTER → 2025-08-03 10:40 | Outpatient (CLI) | payer MEDICARE, SELFPAY ==
--- NOTE | 2025-08-03 10:41 | DI.MRI.S_ITS ---
PROCEDURE: MR LUMBAR SPINE WO CON INDICATIONS: Pain in LLE (burning/tingling); weakness LLE TECHNIQUE: Noncontrast sagittal T1 spin echo and T2 fast echo, sagittal STIR, and T2 fast spin echo through the lumbar spine. In cases with scoliosis, additional coronal T2 fast spin echo may be performed. COMPARISON: [facility], MR, MR LUMBAR SPINE WO CON, 11/08/2018, 15:22. FINDINGS: Image quality: Excellent. Alignment and Curvature: There is grade 1 anterolisthesis of L4 on L5 measures 3 mm in distance. Bone Marrow: Marrow is of normal overall signal. No acute vertebral body compression fractures. Spinal Cord: Conus medullaris terminates at the L2 level. Visualized cord demonstrates normal signal and size. Paraspinous Soft Tissues: No paravertebral masses. T12-L1: Normal appearance. L1-L2: Normal appearance. L2-L3: Disc desiccation. No significant disc bulge , central canal stenosis or neural foraminal narrowing. L3-L4: Disc desiccation. Diffuse disc bulge and bilateral facet arthrosis with hypertrophy of ligamentum flavum causing [id number] central canal stenosis, no significant neural foraminal narrowing. L4-L5: There is disc desiccation. Broad-based disc bulge and bilateral facet arthrosis with hypertrophy of ligamentum flavum causing severe central canal stenosis and moderate bilateral neural foraminal narrowing. Bulging disc likely contacting bilateral L4 nerve roots. L5-S1: Mild diffuse disc bulge and bilateral facet arthrosis without significant central canal stenosis. Mild right worse than left bilateral neural foraminal narrowing is seen. IMPRESSION: 1. No marrow edema. No acute compression fracture. Grade 1 anterolisthesis of L4 on L5. No gross pars defects. 2. 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 Dictated by: Raheem Sutherland M.D. on 08/03/2025 at 13:24 Approved by: Raheem Sutherland M.D. on 08/03/2025 at 13:27
== END ==
LOC: MRI 10:41
PROVIDERS: PCP Family Medicine; Referring Provider Physician Assistant; Visit Provider Physician Assistant
DX: M47.27 Other spondylosis with radiculopathy, lumbosacral region (principal); M47.26 Other spondylosis with radiculopathy, lumbar region; M43.16 Spondylolisthesis, lumbar region; M79.605 Pain in left leg
CPT/HCPCS: 72148